=== PATIENT | female | born 1980 ===

== ENCOUNTER → 2020-04-13 13:22 | Outpatient (BNVA) | payer OTHER, SELFPAY | PROVIDERS: Visit Provider Physician Assistant ==

== ENCOUNTER 2020-04-27 08:26 | Day surgery (SDC) | payer OTHER, SELFPAY ==
--- NOTE | 2020-04-26 09:35 | HO.ANESPROP2 ---
Documented by User: Lurdes Swann 04/26/20 09:37 HPI - Anesthesia Eval Consult details Narrative: 40yo F for Upper Endoscopy [facility] Active Problems Active Problems: All Active Problems (Updated 04/13/20 @ 14:04 by Tamanna Romero PA-C) Anxiety (Acute) Migraine (Acute) Chronic GERD (Acute) Past Medical History Medical History Anxiety Migraine Family History Family History Mother Breast CA Diabetes Hypertension Father Hypertension Social History Social History Household Members: Children Alcohol intake: never Smoking Status: Never smoker Use of substances other than those prescribed or required for medical reasons: No Advance Directives: No Advance Directives Information Provided: Yes 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 Allergy/AdvReac Type Severity Reaction Status Date / Time No Known Allergies Allergy Mild NOT Verified 04/27/20 09:17 APPLICABLE Home Medications Medication Instructions Recorded Confirmed Last Taken Type esomeprazole magnesium 20 mg 40 mg PO DAILY PRN cap 04/13/20 04/13/20 Unknown History capsule,delayed release gabapentin 100 mg capsule 100 mg PO BEDTIME 04/13/20 04/13/20 Unknown History rizatriptan 10 mg tablet 10 mg PO Q2-4H PRN 04/13/20 04/13/20 Unknown History simethicone 125 mg capsule 125 mg PO BID-QID PRN 04/13/20 04/13/20 Unknown History lisinopril 1 tab PO DAILY 04/27/20 04/27/20 Unknown History Exam Exam Date and Time: April 26, 202035 Assessment and Plan Assessment Anesthesia Assessment: Chart Reviewed Documented by User: Jyoti Farmer 04/27/20 09:57 PMFSH Past Medical History Medical History Anxiety Migraine Family History Family History Mother Breast CA Diabetes Hypertension Father Hypertension Social History Social History Household Members: Children Alcohol intake: never Smoking Status: Never smoker Use of substances other than those prescribed or required for medical reasons: No Advance Directives: No Advance Directives Information Provided: Yes 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 Allergy/AdvReac Type Severity Reaction Status Date / Time No Known Allergies Allergy Mild NOT Verified 04/27/20 09:17 APPLICABLE Home Medications Medication Instructions Recorded Confirmed Last Taken Type esomeprazole magnesium 20 mg 40 mg PO DAILY PRN cap 04/13/20 04/13/20 Unknown History capsule,delayed release gabapentin 100 mg capsule 100 mg PO BEDTIME 04/13/20 04/13/20 Unknown History rizatriptan 10 mg tablet 10 mg PO Q2-4H PRN 04/13/20 04/13/20 Unknown History simethicone 125 mg capsule 125 mg PO BID-QID PRN 04/13/20 04/13/20 Unknown History lisinopril 1 tab PO DAILY 04/27/20 04/27/20 Unknown History Exam Airway Mallampati Class: I TM Dist: >3cm Neck ROM: Full Loose/Missing/Broken Teeth: No Heart: RRR Lungs: CTA Assessment and Plan Assessment Anesthesia Assessment: Anesthesia Plan Discussed and Chart Reviewed Final Anesthetic Review NPO: Yes ASA Class: II Final Preanesthetic Review: Meds/Allgs Chart Reviewed, Consent Obtained/Reviewed and Anes Risks/Benef Reviewed Patient Risk: Low Procedure Risk: Intermediate Anesthetic Plan Anesthetic Plan: MAC: Disposition: Standard PACU
[2020-04-27 09:31] VITALS: BMI 39.4
[2020-04-27 09:37] LABS: UPreg QC Valid YES; Urine Pregnancy NEGATIVE (NEGATIVE)
[2020-04-27 09:42] VITALS: BP 137/57; PULSE 76; RESP 16; TEMP 36.7; O2SAT 100
[2020-04-27] MEDS: Lactated Ringers 1,000 ML 100 ML IVCONT (09:49)
--- NOTE | 2020-04-27 09:59 | MHC.SHP ---
Pre-Procedural Eval Section B Chief Complaint: reflux Allergies: Allergies Allergy/AdvReac Type Severity Reaction Status Date / Time No Known Allergies Allergy Mild NOT Verified 04/27/20 09:17 APPLICABLE Plan I have reviewed the history and physical and performed a pertinent physical examination on my patient. No changes have occurred unless specified. Proceed with EGD
--- NOTE | 2020-04-27 10:22 | PM.OP ---
Brief Operative Note Date of Service: 04/27/20 Pre-op diagnosis: dysphagia--high Post-op diagnosis: other (Hiatal hernia, Schatzki's ring, Superficial gastritis.) Procedure: EGD with bx. Implants: nons Surgeon: Giovana Yung MD Anesthesia: MAC (Monitored-AntiMD) Estimated blood loss (mL): 5 Pathology: other (Duodenal, gastric, GE junc--ring) Condition: stable Disposition: PACU
[2020-04-27 10:33] VITALS: BP 126/71; PULSE 82; RESP 18; TEMP 36.2; O2SAT 100
[2020-04-27 10:48] VITALS: BP 117/62; PULSE 71; RESP 18; O2SAT 99
[2020-04-27 10:58] VITALS: BP 123/67; PULSE 71; RESP 18; TEMP 36.2; O2SAT 99
--- NOTE | 2020-04-27 11:31 | HO.POSTANES ---
Post Anesthesia Evaluation Post Anesthesia Evaluation Vital Signs: Vital Signs Temp Pulse Resp BP Pulse Ox 04/27/20 10:58 97.2 F 71 18 123/67 99 04/27/20 10:48 71 18 117/62 99 04/27/20 10:33 97.1 F 82 18 126/71 100 04/27/20 09:42 98.1 F 76 16 137/57 L 100 Anesthesia: Monitored Mental Status: Awake Pain Control: Satisfactory Nausea/Vomiting: None Hydration: Adequate Anesthesia-Related Issues: No Anes. Related Issues
--- NOTE | 2020-04-30 15:38 | P.OP_ITS ---
Operative Note Operative Note Date of Service: 04/27/20 Narrative: [address] [address] Patient: Stu Vargas#: [id number]: 1980Acct:[id number]/Sex: 40 / FADM Date: 04/27/20Loc:[facility] Attending Dr: Giovana Yung MD cc: ~ OPERATIVE Note: Date of Service: 04/27/20 Pre-op diagnosis: dysphagia--high Post-op diagnosis: other (Hiatal hernia, Schatzki's ring, Superficial gastritis.) Procedure: EGD with bx. Implants: none Surgeon: Giovana Yung MD Anesthesia: MAC (Monitored-MD Darian) Estimated blood loss (mL): 5 Pathology: other (Duodenal, gastric, GE junc--SCHATZKI'S Ring) Condition: stable Disposition: PACU FINDINGS: Video endoscope was introduced without difficulty. It passed easily into the esophagus. There was mild erythema in the distal esophagus. At GE junction was a non restrictive Schatzki's ring. Distal to this was a small Hiatal Hernia. The stomach itself was somewhat elongated. Bile was present. Mucosa in the antrum was erythematous. Duodenal bulb and Duodenum had endoscopically normal appearing villi. Biopsies were taken of Duodenum, gastric mucosal areas as well as the esophageal ring. PLAN: Patient will be seen back in the office in 1-4 weeks to review findings and discuss management. Dictated By:Giovana Yung MDSigned By:<Electronically signed by Giovana Yung MD>04/30/20 1537 DD/ 1022TD/TT: 04/27/20 1022Transcriptionist:
== END 2020-04-27 11:50 | disposition home or self-care (01) ==
PROVIDERS: Nurse Practitioner; PCP Student in an Organized Health Care Education/Training Program; Visit Provider Internal Medicine Gastroenterology
PROC: 0DJ08ZZ Inspection of Upper Intestinal Tract, Via Natural or Artificial Opening Endoscopic (ICD-10-PCS; CPT 43235; principal; 2020-04-27 09:50)
DX: K21.9 Gastro-esophageal reflux disease without esophagitis (principal); K22.2 Esophageal obstruction; K29.30 Chronic superficial gastritis without bleeding; K44.9 Diaphragmatic hernia without obstruction or gangrene; Z79.899 Other long term (current) drug therapy
CPT/HCPCS: 43239; 81025; 88305; 88342

== ENCOUNTER → 2020-05-11 11:25 | Outpatient (BNVA) | payer OTHER, SELFPAY | PROVIDERS: PCP Student in an Organized Health Care Education/Training Program; Visit Provider Physician Assistant ==

== ENCOUNTER → 2020-07-27 08:17 | Outpatient (BNVA) | payer OTHER, SELFPAY | PROVIDERS: Visit Provider Physician Assistant ==

== ENCOUNTER → 2020-08-31 09:15 | Outpatient (BNVA) | payer OTHER, SELFPAY | PROVIDERS: PCP Student in an Organized Health Care Education/Training Program; Visit Provider Physician Assistant ==

== ENCOUNTER → 2020-09-14 13:26 | Outpatient (BNVA) | payer OTHER, SELFPAY | PROVIDERS: PCP Student in an Organized Health Care Education/Training Program; Visit Provider Dietitian, Registered | DX: E66.9 Obesity, unspecified (principal); Z68.38 Body mass index [BMI] 38.0-38.9, adult | CPT/HCPCS: 97802 ==

== ENCOUNTER → 2020-09-21 11:14 | Outpatient (BNVA) | payer OTHER, SELFPAY | PROVIDERS: PCP Student in an Organized Health Care Education/Training Program; Visit Provider Physician Assistant ==

== ENCOUNTER → 2020-11-17 12:15 | Outpatient (BNVA) | payer OTHER, SELFPAY | PROVIDERS: PCP Student in an Organized Health Care Education/Training Program; Visit Provider Dietitian, Registered | DX: E66.9 Obesity, unspecified (principal); Z68.37 Body mass index [BMI] 37.0-37.9, adult | CPT/HCPCS: 97803 ==

== ENCOUNTER 2020-12-28 07:08 | Day surgery (SDC) | payer OTHER, SELFPAY ==
[2020-08-30 18:57] VITALS: BMI 40.8
--- NOTE | 2020-12-27 12:11 | HO.ANESPROP2 ---
Documented by User: Lurdes Swann NP 12/27/20 12:15 HPI - Anesthesia Eval Consult details Narrative: 40yo F for Colonoscopy s/p EGD 04/2020 with MAC PMF Active Problems Active Problems: All Active Problems (Updated 11/17/20 @ 12:43 by Geno Kwong, RD, LDN) Obesity (Acute) Chronic GERD (Acute) Globus hystericus (Acute) Schatzki's ring (Acute) Weight gain (Acute) Change in bowel habit (Acute) Cancer phobia (Acute) Hemorrhoids (Acute) Anxiety (Acute) Migraine (Acute) Past Medical History Medical History Anxiety Asthma Depression Hemorrhoids Hypertension Migraine Family History Family History Mother Breast CA Diabetes Hypertension Depression Anxiety Father Hypertension Surgical History Surgical History H/O colonoscopy History of esophagogastroduodenoscopy (EGD) Hx of cholecystectomy Social History Social History Household Members: Children Alcohol intake: current Alcohol intake frequency: does not drink Patient Tobacco Use Status: Never used Tobacco Use of substances other than those prescribed or required for medical reasons: No Are you DNR?: No Advance Directives: No Advance Directives Information Provided: Yes Advance Directives on File: No Recently lost weight without trying: No Nutrition Risks: No Nutritional Risk Patient : No 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 Allergy/AdvReac Type Severity Reaction Status Date / Time No Known Allergies Allergy Mild NOT Verified 09/21/20 11:15 APPLICABLE Home Medications Medication Instructions Recorded Confirmed Last Taken Type esomeprazole magnesium 20 mg 40 mg PO DAILY PRN cap 04/13/20 08/31/20 Unknown History capsule,delayed release (Nexium) rizatriptan 10 mg tablet (Maxalt) 10 mg PO Q2-4H PRN 04/13/20 08/31/20 Unknown History simethicone 125 mg capsule (Gas-X 125 mg PO BID-QID PRN 04/13/20 08/31/20 Unknown History Extra Strength) alprazolam 0.5 mg tablet (Xanax) 0.5 mg PO DAILY 07/27/20 08/31/20 Unknown History Exam Exam Date and Time: December 27, 2020 1211 Height,Weight and Vital Signs: Height 5 ft 6 in Weight 114.759 kg Assessment and Plan Assessment Anesthesia Assessment: Chart Reviewed Documented by User: Flores Nguyen MD 12/28/20 07:26 PMFSH Past Medical History Medical History Anxiety Asthma Depression Hemorrhoids Hypertension Migraine Functional capacity: independent ambulation Patient : No Family History Family History Mother Breast CA Diabetes Hypertension Depression Anxiety Father Hypertension Surgical History Surgical History H/O colonoscopy History of esophagogastroduodenoscopy (EGD) Hx of cholecystectomy History of Problems with Anesthesia: No Social History Social History Household Members: Children Alcohol intake: current Alcohol intake frequency: does not drink Patient Tobacco Use Status: Never used Tobacco Use of substances other than those prescribed or required for medical reasons: No Are you DNR?: No Advance Directives: No Advance Directives Information Provided: Yes Advance Directives on File: No Recently lost weight without trying: No Nutrition Risks: No Nutritional Risk Patient : No 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 Allergy/AdvReac Type Severity Reaction Status Date / Time No Known Allergies Allergy Mild NOT Verified 09/21/20 11:15 APPLICABLE Home Medications Medication Instructions Recorded Confirmed Last Taken Type esomeprazole magnesium 20 mg 40 mg PO DAILY PRN cap 04/13/20 08/31/20 Unknown History capsule,delayed release (Nexium) rizatriptan 10 mg tablet (Maxalt) 10 mg PO Q2-4H PRN 04/13/20 08/31/20 Unknown History simethicone 125 mg capsule (Gas-X 125 mg PO BID-QID PRN 04/13/20 08/31/20 Unknown History Extra Strength) alprazolam 0.5 mg tablet (Xanax) 0.5 mg PO DAILY 07/27/20 08/31/20 Unknown History Exam Airway Mallampati Class: II TM Dist: >3cm Neck ROM: Full Heart: RRar Lungs: CTA Assessment and Plan Final Anesthetic Review History of Problems with Anesthesia: No
[2020-12-28 07:30] LABS: UPreg QC Valid YES
[2020-12-28 07:31] LABS: Urine Pregnancy NEGATIVE (NEGATIVE)
[2020-12-28 07:33] VITALS: BP 137/76; PULSE 72; RESP 16; TEMP 36.6; O2SAT 98
[2020-12-28] MEDS: Lactated Ringers 1,000 ML 100 ML IVCONT (07:40)
--- NOTE | 2020-12-28 07:50 | MHC.SHP ---
Pre-Procedural Eval Section A Date of Service: 12/28/20 Section B Chief Complaint: change in bowel habit Relevant Family History (Specify if Yes): No Relevant Social History: None Present Medications: see Short Stay Collaborative assessment Medical History: Significant History (Anxiety Asthma Depression Hemorrhoids Hypertension Migraine) History of Previous Operations: Relevant previous surgery/procedure and date(s) (cholecystectomy) Allergies: Allergies Allergy/AdvReac Type Severity Reaction Status Date / Time No Known Allergies Allergy Mild NOT Verified 09/21/20 11:15 APPLICABLE Review of Systems Sugical H&P ROS: Negative: Constitution, Cardiovascular, Respiratory, Neurological, Psychiatric, Hem-Onc, Allergic/Immunologic, Gastrointestinal, Genitourinary, Musculoskeletal, Integumentary, Endocrine and Eyes/Ears/Nose/Throat Exam Surgical H&P Exam: Normal: HEENT, Normal: Heart, Normal: Lungs, Normal: Extremities, Normal: Abdomen, Normal: Skin and Normal: Neurological Plan Diagnosis/Plan: Unchanged I have reviewed the history and physical and performed a pertinent physical examination on my patient. No changes have occurred unless specified.
--- NOTE | 2020-12-28 09:03 | P.BOP_ITS ---
Brief Operative Note Date of Service: 12/28/20 Pre-op diagnosis: altered bowel habit Post-op diagnosis: same Procedure: see op note Surgeon: Maribell Ravi MD Anesthesia: MAC Was an Acquisition Manager used for this Procedure?: No Estimated blood loss (mL): 0 Condition: stable Disposition: PACU
--- NOTE | 2020-12-28 09:04 | P.OP_ITS ---
Operative Note Operative Note Date of Service: 12/28/20 Narrative: Operative Information Procedure Description: Colonoscopy COLONOSCOPY Instrument: Olympus variable stiffness pediatric scope 190L Colonoscopy Monitoring: Vital signs and clinical assessment, continuous EKG monitoring, Pulse oximetry, Carbon Dioxide monitoring and blood pressure monitoring were done throughout the procedure. Colon withdrawal time was 11 minutes. Procedure: The patient was placed in the left lateral decubitis position and pre-procedure medications were administered. After a digital rectal examination of the ano-rectum, the video colonoscope was inserted into the rectum and advanced through the colon to the cecum/TI. The colonoscope was slowly withdrawn in a retrograde panoramic fashion and the colon mucosa was carefully examined including a retroflexed view of the rectum. Findings and interventions are described below. Procedure Difficulty: easy Findings: Terminal Ileum-normal, bx taken Random bx taken from colon Cecum:normal Ascending Colon: normal Transverse Colon -normal Descending Colon:normal Sigmoid Colon: normal Rectum: Retroflexion with moderate sized internal hemorrhoids, grade I Anorectum - normal Colon preparation: [place] Bowel Preparation Scale Right colon; 3 Transverse colon: 2 Left colon; 3 (0 = Unprepared colon segment with mucosa not seen due to solid stool that cannot be cleared. 1 = Portion of mucosa of the colon segment seen, but other areas of the colon segment not well seen due to staining, residual stool and/or opaque liquid. 2 = Minor amount of residual staining, small fragments of stool and/or opaque liquid, but mucosa of colon segment seen well. 3 = Entire mucosa of colon segment seen well with no residual staining, small fragments of stool or opaque liquid) Impression and Post Procedure Diagnosis: internal hemrorhoids Plan: High fiber diet leaflet Avoid straining at stool, epsom salts and sitz bath, anusol supps or cream Repeat Colonoscopy in 10 years or earlier if clinically indicated Above findings were reviewed with the patient and relevant handouts were provided if indicated.
[2020-12-28 09:11] VITALS: BP 130/72; PULSE 61; RESP 16; TEMP 36.7; O2SAT 100
[2020-12-28 09:26] VITALS: BP 126/85; PULSE 61; RESP 18; TEMP 36.8; O2SAT 100
--- NOTE | 2020-12-28 10:46 | HO.POSTANES ---
Post Anesthesia Evaluation Post Anesthesia Evaluation Vital Signs: Vital Signs Temp Pulse Resp BP Pulse Ox 12/28/20 09:26 98.2 F 61 18 126/85 100 12/28/20 09:11 98.1 F 61 16 130/72 100 12/28/20 07:33 97.8 F 72 16 137/76 98 Anesthesia: Monitored Mental Status: Awake Pain Control: Satisfactory Nausea/Vomiting: None Hydration: Adequate Anesthesia-Related Issues: No Anes. Related Issues
== END 2020-12-28 10:28 | disposition home or self-care (01) ==
PROVIDERS: Nurse Practitioner; PCP Student in an Organized Health Care Education/Training Program; Visit Provider Internal Medicine Gastroenterology
PROC: 0DJD8ZZ Inspection of Lower Intestinal Tract, Via Natural or Artificial Opening Endoscopic (ICD-10-PCS; CPT 45378; principal; 2020-12-28 08:30)
DX: R19.4 Change in bowel habit (principal); K64.8 Other hemorrhoids; K64.0 First degree hemorrhoids; I10 Essential (primary) hypertension; F41.9 Anxiety disorder, unspecified; F40.298 Other specified phobia; Z79.899 Other long term (current) drug therapy; Z90.49 Acquired absence of other specified parts of digestive tract
CPT/HCPCS: 45380; 81025; 88305

== ENCOUNTER → 2021-01-19 12:46 | Outpatient (BNVA) | payer OTHER, SELFPAY | PROVIDERS: PCP Student in an Organized Health Care Education/Training Program; Visit Provider Dietitian, Registered | DX: E66.9 Obesity, unspecified (principal) | CPT/HCPCS: 97803 ==

== ENCOUNTER → 2021-03-20 14:24 | Outpatient (BNVA) | payer OTHER, SELFPAY | PROVIDERS: PCP Student in an Organized Health Care Education/Training Program; Visit Provider Dietitian, Registered | DX: E66.9 Obesity, unspecified (principal) | CPT/HCPCS: 97803 ==

== ENCOUNTER → 2021-05-21 07:29 | Outpatient (BNVA) | payer OTHER, SELFPAY | PROVIDERS: PCP Student in an Organized Health Care Education/Training Program; Visit Provider Physician Assistant ==

== ENCOUNTER 2021-06-06 04:06 | Emergency (ER) | payer OTHER, SELFPAY ==
--- NOTE | ~2021-06-06 | CT_ITS ---
EXAMINATION: CT ABDOMEN AND PELVIS WITH CONTRAST CLINICAL INFORMATION: Left lower quadrant/left inguinal pain. COMPARISON: None TECHNIQUE: Multidetector volumetric images were obtained from the superior aspect of the liver through the pubic symphysis following administration 85 mL of Omnipaque 350 intravenous contrast. Sagittal and coronal reformatted images were obtained on the technologist's workstation. Oral contrast: No This CT examination was performed using dose optimization techniques as appropriate, variously including the following: *Automated exposure control *Adjustment of mA and/or kV according to patient size (this includes techniques or standardized protocols for targeted exams where dose is matched to indication/reason for exam; i.e. extremities or head) *Use of iterative reconstruction technique DLP: 01/04/2020 mGy-cm FINDINGS: LUNG BASES: The visualized lung bases are unremarkable. LIVER, GALLBLADDER, AND BILIARY TREE: The liver is normal in size, shape, and attenuation. No focal hepatic lesion or biliary ductal dilatation is present. The gallbladder has been surgically removed. PANCREAS: Unremarkable. SPLEEN: Unremarkable. ADRENAL GLANDS: Unremarkable. KIDNEYS AND URETERS: The kidneys are normal in size, shape, and attenuation. No hydronephrosis, hydroureter, or calculi seen. No perinephric stranding. BLADDER: Unremarkable. GASTROINTESTINAL TRACT: There is scattered stool seen throughout the colon without any significant distention. The small bowel loops are normal caliber. Appendix is there is normal caliber. No inflammatory process of free fluid seen. The stomach is nondistended. ABDOMINAL WALL: There is a small lumbar canal hernia containing fat. LYMPH NODES: Normal. VASCULAR: Unremarkable. PELVIC VISCERA: There is minimal fluid in the left adnexa. The uterus is anteverted and appears unremarkable. OSSEOUS STRUCTURES: Unremarkable. CT/CT abdomen pelvis w con IMPRESSION: No acute intra-abdominal process seen. Minimal constipation. No radiopaque urolith or hydroureteronephrosis. Fleischner guidelines were followed.
[2021-06-06 04:38] VITALS: BP 137/73; PULSE 81; RESP 21; TEMP 36.8; O2SAT 96; BMI 39.1
[2021-06-06 04:54] LABS: Hematocrit 36.8 % (37.0-47.0); Hemoglobin 11.9 g/dl (12.0-16.0); Mean Corpuscular HGB Conc 32.3 g/dl (31.0-35.0); Mean Corpuscular Volume 89.8 fL (80.0-98.0); Mean Platelet Volume 10.9 fL (9.4-12.3); Platelet Count 261 X10*3/uL (160-400); Red Cell Distribution Width 13.8 % (11.0-16.0); White Blood Count 8.4 X10*3/uL (4.8-10.8)
[2021-06-06 05:09] LABS: Alanine Aminotransferase 15 U/L (0-31); Albumin Level 3.9 g/dL (3.5-5.0); Alkaline Phosphatase 57 U/L (39-117); Anion Gap 11 (12-20); Aspartate Amino Transferase 13 U/L (5-31); Bilirubin Total 0.3 mg/dL (0.0-1.0); Blood Urea Nitrogen 18 mg/dL (9-16); Calcium 9.6 mg/dL (8.4-10.2); Carbon Dioxide 27 mmol/L (22-29); Chloride 106 mmol/L (96-108); Creatinine Clr Calc Pharmacy 136.6; Estimated Glomerular Filt Rate > 60; Glucose Random 105 mg/dL (60-115); Potassium 4.9 mmol/L (3.3-5.1); Sodium 139 mmol/L (135-145); Total Protein 6.5 g/dL (6.5-8.0)
[2021-06-06 05:25] VITALS: BP 134/70; PULSE 72; RESP 16; O2SAT 99
[2021-06-06 05:46] LABS: Appearance Urine CLEAR; Color Urine YELLOW; Glucose Urine UA NEG (NEG); Leukocyte Esterase Urine NEG (NEG); Nitrite Urine NEG (NEG); Urine Blood NEG (NEG); Urine Ketones NEG (NEG); Urine Protein NEG (NEG-TRACE)
[2021-06-06 05:50] LABS: HCG Quantitative < 2 mIU/mL
--- NOTE | 2021-06-06 06:09 | PC.NURSE ---
Assumed care of pt Pt c/o LT groin pain radiating down LT thigh starting yesterday. Per pt, worse with palpation Denies any fevers at home Denies any pain/burning during urination. Pt notes that she is having urinary frequency. Will continue to monitor
--- NOTE | 2021-06-06 06:19 | ED.ABDPAIN ---
HPI - Abdominal Pain General Chief Complaint: Extremity Injury, Lower Stated Complaint: lower left side pain Time Seen by Provider: 06/06/21 05:30 Source: patient Mode of arrival: ambulatory History of Present Illness HPI narrative: 31-year-old female presents with left inguinal pain that began last night and radiates down into the medial thigh area but has not been associated with any fever, chills, nausea, vomiting, diarrhea and patient states that the pain is sharp and has worsened throughout the night which prompted cover the emergency. She states she has never had pain like this before, and her LMP was August of 2020. Related Data Home Medications Medication Instructions Recorded Confirmed rizatriptan 10 mg tablet (Maxalt) 10 mg PO Q2-4H PRN 04/13/20 08/31/20 simethicone 125 mg capsule (Gas-X 125 mg PO BID-QID PRN 04/13/20 05/21/21 Extra Strength) alprazolam 0.5 mg tablet (Xanax) 0.5 mg PO DAILY 07/27/20 05/21/21 rimegepant 75 mg disintegrating 75 mg PO 05/21/21 tablet (Nurtec ODT) Previous Rx's Medication Instructions Recorded methylcellulose (laxative) 500 mg 500 mg PO BID #60 tab 05/21/21 tablet (Citrucel) Allergies Allergy/AdvReac Type Severity Reaction Status Date / Time No Known Allergies Allergy Mild NOT Verified 05/21/21 07:38 APPLICABLE Review of Systems Review of Systems Pertinent positives and negatives as stated in HPI 10 point review of systems is otherwise negative. [facility] Past Medical History Source: nursing notes reviewed Medical History Anxiety Asthma Depression Hemorrhoids Hypertension Migraine Surgical History H/O colonoscopy History of esophagogastroduodenoscopy (EGD) Hx of cholecystectomy Family History Family History Mother Breast CA Diabetes Hypertension Depression Anxiety Father Hypertension Social History Social History Household Members: Children Alcohol intake: current Alcohol intake frequency: does not drink Patient Tobacco Use Status: Never used Tobacco Advance Directives: No Advance Directives Information Provided: Yes 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 GENERAL: Well developed, well nourished, in no acute distress. HEAD: Normocephalic/atraumatic EYES: PERRLA, EOMI OROPHARYNX: no oral lesions noted, posterior pharynx clear LUNGS: Normal breath sounds. No adventitious sounds or accessory muscle use. SpO2<96> CARDIOVASCULAR: Regular rate and rhythm without noted murmurs ABDOMEN: Soft, left lower quadrant pain on palpation without rebound, non-distended with bowel sounds. SKIN: Inspection of the skin reveals no rashes NEUROLOGIC: Alert and oriented x 4. Strength and sensation to light touch were grossly intact x 4. Course Course Course Narrative: 41-year-old female with history and clinical presentation suggestive of possible renal colic, inguinal hernia, and less likely diverticulitis. Review of all investigations without acute findings and patient was provided with all results at the bedside. Suspect may be musculoskeletal pain and recommendations for combination analgesics as well as heating pad for pain control. MDM - Abdominal Pain Lab Data Result diagrams: 06/06/21 04:48 06/06/21 04:48 Labs: Lab Results 06/06/21 06/06/21 06/06/21 Range/Units 04:48 04:48 05:39 WBC 8.4 (4.8-10.8) X10*3/uL RBC 4.10 L (4.20-5.50) X10*6/uL Hgb 11.9 L (12.0-16.0) g/dl Hct 36.8 L (37.0-47.0) % MCV 89.8 (80.0-98.0) fL MCH 29.0 (27.0-33.0) pg MCHC 32.3 (31.0-35.0) g/dl RDW 13.8 (11.0-16.0) % Plt Count 261 (160-400) X10*3/uL MPV 10.9 (9.4-12.3) fL Absolute Nucleated RBC 0.000 (0.0-0.012) X10*3/uL Nucleated RBC % (auto) 0.0 (0.0-0.2) /100WBC Sodium 139 (135-145) mmol/L Potassium 4.9 (3.3-5.1) mmol/L Chloride 106 (96-108) mmol/L Carbon Dioxide 27 (22-29) mmol/L Anion Gap 11 L (12-20) BUN 18 H (9-16) mg/dL Creatinine 0.69 (0.5-1.4) mg/dL Estim Creat Clear Calc 136.6 Estimated GFR > 60 Random Glucose 105 (60-115) mg/dL Calcium 9.6 (8.4-10.2) mg/dL Total Bilirubin 0.3 (0.0-1.0) mg/dL AST 13 (5-31) U/L ALT 15 (0-31) U/L Alkaline Phosphatase 57 (39-117) U/L Total Protein 6.5 (6.5-8.0) g/dL Albumin 3.9 (3.5-5.0) g/dL Beta HCG, Quant < 2 mIU/mL Urine Color YELLOW Urine Appearance CLEAR Urine pH 7.0 (5.0-8.0) Ur Specific [place] 1.020 (1.005-1.025) Urine Protein NEG (NEG-TRACE) MG/DL Urine Glucose (UA) NEG (NEG) MG/DL Urine Ketones NEG (NEG) MG/DL Urine Blood NEG (NEG) Urine Nitrite NEG (NEG) Ur Leukocyte Esterase NEG (NEG) Discharge Plan Discharge Clinical Impression: Abdominal wall pain Patient Disposition: Home, Self-Care Instructions: Abdominal Pain (ED), Musculoskeletal Pain (ED) Additional Instructions: 1. Recommend that you use [id number] Tylenol/ibuprofen as needed for pain control. Also, consider a heating pad for additional symptom relief. 2. Resume all home medications as prescribed. 3. Follow-up with your primary care provider in the next 2-3 days for re-evaluation. Return to the ER for worsening symptoms. Prescriptions: No Action simethicone [Gas-X Extra Strength] 125 mg capsule 125 mg PO BID-QID PRN (Reason: Gastric Reflux) 0RF rizatriptan [Maxalt] 10 mg tablet 10 mg PO Q2-4H PRN (Reason: Headache) 0RF Rx Instructions: do not exceed 3 doses per 24 hrs alprazolam [Xanax] 0.5 mg tablet 0.5 mg PO DAILY 0RF Nurtec ODT 75 mg tablet,disintegrating 75 mg PO 0RF Citrucel 500 mg tablet 500 mg PO BID Qty: 60 5RF
[2021-06-06] MEDS: iohexoL 350 MG/ML 100 ML INFUS..BTL IV (08:12)
== END 2021-06-06 07:31 | disposition home or self-care (01) ==
PROVIDERS: Emergency Provider Student in an Organized Health Care Education/Training Program
DX: R10.10 Upper abdominal pain, unspecified (principal); Z79.899 Other long term (current) drug therapy
CPT/HCPCS: 36415; 74177; 80053; 81003; 84702; 85027; 99284; Q9967

== ENCOUNTER → 2021-09-10 14:35 | Outpatient (BNVA) | payer OTHER, SELFPAY | PROVIDERS: Visit Provider Dietitian, Registered | DX: E66.9 Obesity, unspecified (principal) | CPT/HCPCS: 97803 ==

== ENCOUNTER → 2021-10-22 09:08 | Outpatient (BNVA) | payer OTHER, SELFPAY | PROVIDERS: PCP Student in an Organized Health Care Education/Training Program; Visit Provider Dietitian, Registered | DX: E66.9 Obesity, unspecified (principal) | CPT/HCPCS: 97803 ==

== ENCOUNTER → 2022-03-19 10:28 | Outpatient (BNVA) | payer OTHER, SELFPAY | PROVIDERS: PCP Student in an Organized Health Care Education/Training Program; Visit Provider Nurse Practitioner Family | DX: Z13.89 Encounter for screening for other disorder (principal) ==

== ENCOUNTER → 2022-07-02 10:47 | Outpatient (BNVA) | payer OTHER, SELFPAY | PROVIDERS: PCP Student in an Organized Health Care Education/Training Program; Visit Provider Nurse Practitioner Family | DX: Z13.89 Encounter for screening for other disorder (principal) ==

== ENCOUNTER 2022-08-05 15:35 | Outpatient (REF) | payer OTHER, SELFPAY ==
[2022-08-05 18:07] LABS: D Dimer High Sensitivity 157 NG/ML
[2022-08-05 18:16] LABS: Appearance Urine Clear; Color Urine Yellow; Glucose Urine UA Negative (Negative); Leukocyte Esterase Urine Trace (Negative); Nitrite Urine Negative (Negative); PH 6.5 (5.0-9.0); Specific Gravity - Urine 1.015 (1.005-1.025); UMIC TRIGGER UA YES; Urine Blood Negative (Negative); Urine Ketones Negative (Negative); Urine Protein Negative (Neg-Trace)
[2022-08-05 18:21] LABS: Bacteria Urine None Seen (None Seen); Hyaline Casts Urine 0-2 /LPF (0-2); RBC Urine 0-2 /HPF (0-2); Squamous Epithelial Cell Urine 0-2 /HPF (0-2); WBC Urine 0-5 /HPF (0-5)
[2022-08-05 18:22] LABS: Alanine Aminotransferase 13 U/L (0-31); Alkaline Phosphatase 55 U/L (39-117); Anion Gap 13 (12-20); Aspartate Amino Transferase 14 U/L (5-31); Bilirubin Total 0.3 mg/dL (0.0-1.0); Blood Urea Nitrogen 16 mg/dL (9-16); Calcium 9.5 mg/dL (8.4-10.2); Carbon Dioxide 27 mmol/L (22-29); Chloride 104 mmol/L (96-108); Estimated Glomerular Filt Rate > 60; Glucose Random 87 mg/dL (60-115); Potassium 4.8 mmol/L (3.3-5.1); Sodium 139 mmol/L (135-145); Total Protein 6.5 g/dL (6.5-8.0)
== END 2022-08-05 15:36 | disposition home or self-care (01) ==
LOC: HO.LAB 15:35
PROVIDERS: Visit Provider Internal Medicine
DX: R60.0 Localized edema (principal)
CPT/HCPCS: 36415; 80053; 81001; 85379

== ENCOUNTER → 2022-08-29 11:20 | Outpatient (BNVA) | payer OTHER, SELFPAY | PROVIDERS: PCP Student in an Organized Health Care Education/Training Program; Visit Provider Nurse Practitioner Family ==

== ENCOUNTER 2022-10-09 06:21 | Outpatient (REF) | payer OTHER, SELFPAY ==
[2022-10-09 07:51] LABS: Anion Gap 12 (12-20); Blood Urea Nitrogen 14 mg/dL (9-16); Carbon Dioxide 24 mmol/L (22-29); Chloride 108 mmol/L (96-108); Cholesterol 179 mg/dL; Estimated Glomerular Filt Rate > 60; Glucose Random 110 mg/dL (60-115); HDL Cholesterol 44 mg/dL; LDL Cholesterol Calculated 118 mg/dl; Potassium 4.6 mmol/L (3.3-5.1); Sodium 139 mmol/L (135-145); Triglycerides 85 mg/dL
== END 2022-10-09 06:22 | disposition home or self-care (01) ==
LOC: HO.LAB 06:21
PROVIDERS: PCP Student in an Organized Health Care Education/Training Program; Visit Provider Student in an Organized Health Care Education/Training Program
DX: F41.1 Generalized anxiety disorder (principal); F41.0 Panic disorder [episodic paroxysmal anxiety]; E66.01 Morbid (severe) obesity due to excess calories
CPT/HCPCS: 36415; 80048; 80061

== ENCOUNTER 2023-01-10 13:29 | Outpatient (AMB) | payer OTHER, SELFPAY ==
--- NOTE | 2023-01-10 13:30 | A.OFFVIS_ITS ---
Intake Vital Signs 01/10/23 13:31 Height 5 ft 7 in Weight 260 lb 2 oz BMI 40.7 BP 132/72 Blood Pressure Location Lt brachial Position Sitting Respiration 16 Pulse 85 Pulse Source Pulse Oximeter Pulse Oximetry (%) 99 Oxygen Delivery Method Room Air Intake Visit Reasons: 4m follow up-Confirmed Intake Note: Pt presents to the office for 4 month follow up for migraines. Pt reports her migraines are better and the shots seem to be working , however, when she gets her cluster headaches the only thing that helps take them away is the Nurtec, and she has been having trouble getting this approved by the insurance. Allergies No Known Allergies Allergy (Mild, Verified 01/10/23 13:31) NOT APPLICABLE HPI HPI Comments History of Present Illness Details 42-yr-old female presents for f/u visit for chronic migraine. She is on Emgality, today is the due date. Pt reports that the migraine frequency and intensity has been better. However, she still has really bad headache 2 days/week with nausea, light and noise sensitivity. Nurtec was mostly helpful to treat the acute migraine and it did not cause brainfog or dizziness. Pt tried Ubrelvy, sumatriptan, and rizatriptan but they caused dizziness and unbalance, she did not tolerate and could not get out of bed. Pt reports she can't sleep well, loud snoring, frequent gasping arousals and excessive daytime sleepiness. Pt had a PSG sleep study done 2020, but no REM recorded. She gained 30 lb since 2020. 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 Review of Systems Const All systems reviewed & are unremarkable except as noted in HPI and below Physical Exam Vital Signs: Last Vital Signs Pulse 85 01/10/23 13:31 Resp 16 01/10/23 13:31 BP 132/72 01/10/23 13:31 Pulse Ox 99 01/10/23 13:31 Oxygen Delivery Method Room Air 01/10/23 13:31 BMI result Body Mass Index 40.7 Const General: cooperative and no acute distress Orientation/consciousness: patient oriented x3 HEENT Head: Yes normocephalic Resp Effort & Inspection: normal respiratory effort and able to speak in complete sentences Neuro General: patient oriented x3, gait normal and CN's II-XI intact bilaterally Cognition (Neuro): normal cognition Motor exam (neuro): 5/5 motor strength present throughout Psych Appearance: grossly normal Mental Status: mental status grossly normal Speech and movement: Normal speech and movement present Affect: normal affect Attitude: cooperative Thought process: Normal thought process present Thought content: Normal thought content present Insight: Good insight present (Psych) Judgement: Good judgement present (Psych) Assessment & Plan Assessment & Plan (1) Daytime sleepiness: Code(s): R40.0 - Somnolence (2) Snoring: Code(s): R06.83 - Snoring (3) Sleep difficulties: Code(s): G47.9 - Sleep disorder, unspecified (4) Migraine: Code(s): G43.909 - Migraine, unspecified, not intractable, without status migrainosus Plan Advised patient to undergo home sleep study to assess sleep apnea. Will f/u after sleep study for appropriate treatment options. Continue to take monthly Emgality as patient experiences good clinical effects. Will try Nurtec to treat acute the migraine. Pt did not tolerate sumatriptan, rizatriptan and ubrelvy. Orders: Orders RT home sleep study Today E66.9 - Obesity, unspecified, G47.9 - Sleep disorder, unspecified, R06.83 - Snoring, R40.0 - Somnolence Medications: Refilled rimegepant (Nurtec ODT) 75 mg orally daily PRN; 32 days 16 tabs 6RF migraine G43.909 - Migraine, unspecified, not intractable, without status migrainosus Coding Level of Care Code Est Pt Level 4 (48238) Diagnoses Daytime sleepiness R40.0 Snoring R06.83 Sleep difficulties G47.9 Migraine G43.909
[2023-01-10 13:31] VITALS: BP 132/72; PULSE 85; RESP 16; O2SAT 99; BMI 40.7
== END 2023-01-10 13:53 | disposition home or self-care (01) ==
PROVIDERS: Visit Provider Nurse Practitioner Family
DX: R40.0 Somnolence (principal); R06.83 Snoring; G47.9 Sleep disorder, unspecified; G43.909 Migraine, unspecified, not intractable, without status migrainosus
CPT/HCPCS: 99214

== ENCOUNTER → 2023-01-10 13:29 | Outpatient (BNVA) | payer OTHER, SELFPAY | PROVIDERS: Visit Provider Nurse Practitioner Family ==

== ENCOUNTER → 2023-03-11 12:54 | Outpatient (REF) | payer OTHER, SELFPAY | LOC: HO.SL 12:54 | PROVIDERS: Visit Provider Nurse Practitioner Family | DX: G47.33 Obstructive sleep apnea (adult) (pediatric) (principal); E66.9 Obesity, unspecified; R06.83 Snoring; R40.0 Somnolence | CPT/HCPCS: 95806 ==

== ENCOUNTER → 2023-03-11 13:15 | Outpatient (BNV) | payer OTHER, SELFPAY | PROVIDERS: Visit Provider Internal Medicine | DX: G47.33 Obstructive sleep apnea (adult) (pediatric) (principal) | CPT/HCPCS: 95806 ==

== ENCOUNTER 2023-05-07 10:18 | Outpatient (REF) | payer OTHER, SELFPAY ==
[2023-05-07 15:22] LABS: Alanine Aminotransferase 14 U/L (0-31); Albumin Level 3.9 g/dL (3.5-5.0); Alkaline Phosphatase 56 U/L (39-117); Anion Gap 13 (12-20); Aspartate Amino Transferase 13 U/L (5-31); Bilirubin Direct 0.2 mg/dL (0.0-0.5); Bilirubin Total 0.3 mg/dL (0.0-1.0); Blood Urea Nitrogen 13 mg/dL (9-16); Calcium 8.9 mg/dL (8.4-10.2); Carbon Dioxide 25 mmol/L (22-29); Chloride 106 mmol/L (96-108); Cholesterol 198 mg/dL (<200); Estimated Glomerular Filt Rate > 60; Glucose Random 84 mg/dL (60-115); HDL Cholesterol 50 mg/dL (>40); LDL Cholesterol Calculated 131 mg/dL (<100); Potassium 4.1 mmol/L (3.3-5.1); Sodium 140 mmol/L (135-145); Total Protein 6.6 g/dL (6.5-8.0); Triglycerides 88 mg/dL (<150)
[2023-05-07 15:37] LABS: Thyroid Stimulating Hormone 0.68 uIU/mL (0.32-4.0); Vitamin D 25-OH Total 12.3 ng/mL (>30)
== END 2023-05-07 10:19 | disposition home or self-care (01) ==
LOC: HO.CHCLDS 10:18
PROVIDERS: Visit Provider Student in an Organized Health Care Education/Training Program
DX: E66.01 Morbid (severe) obesity due to excess calories (principal); E55.9 Vitamin D deficiency, unspecified
CPT/HCPCS: 36415; 80048; 80061; 80076; 82306; 84443

== ENCOUNTER 2023-05-09 15:54 | Outpatient (AMB) | payer OTHER, SELFPAY ==
[2023-05-09 16:00] VITALS: BP 142/90; PULSE 92; TEMP 37.2; O2SAT 9; BMI 42.1
--- NOTE | 2023-05-09 16:00 | AM.OFFWIN_ITS ---
Intake Vital Signs 05/09/23 16:00 Height 5 ft 7 in Weight 269 lb BMI 42.1 BP 142/90 H Blood Pressure Location Lt brachial Position Sitting Pulse 92 Pulse Source Pulse Oximeter Temp 98.9 F Temp Source Temporal Artery Scan Pulse Oximetry (%) 9 L Intake Visit Reasons: EP hard to breathe sinus/chest pressure Intake Note: Pt is here today as an est patient, difficulty breathing and chest pressure. Pt states symptoms started friday Patient Tobacco Use Status: Never used Tobacco Allergies No Known Allergies Allergy (Mild, Verified 05/09/23 16:01) NOT APPLICABLE Do you need a note to return to daycare/school/sports/work: Yes HPI HPI Comments History of Present Illness Details 43 y/o female patient who presents to [facility] with c/o URI symptoms since Fri. She was seen at walk in Fri and given Sinus Decongestant medicines, but re[orts no improvement. Denies fevers, chills, nausea or vomiting. 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 Review of Systems Const All systems reviewed & are unremarkable except as noted in HPI and below Physical Exam Vital Signs: Last Vital Signs Temp 98.9 F 05/09/23 16:00 Pulse 92 05/09/23 16:00 BP 142/90 H 05/09/23 16:00 Pulse Ox 9 L 05/09/23 16:00 BMI result Body Mass Index 42.1 Const General: comfortable and no acute distress HEENT Head: Yes normocephalic and Yes atraumatic Ears: external ears normal and TM's normal bilaterally General nose exam: Abnormal mucous membranes and turbinates present boggy and erythematous and Nasal discharge present Face and sinus: Yes sinuses nontender Mouth: moist mucous membranes Throat: Yes posterior oropharynx normal Resp Effort & Inspection: normal respiratory effort and able to speak in complete sentences Auscultation: clear to auscultation bilaterally Cardio Rate: regular rate Rhythm: regular rhythm Assessment & Plan Assessment & Plan (1) Upper respiratory infection: Code(s): J06.9 - Acute upper respiratory infection, unspecified Qualifiers: URI type: acute nasopharyngitis (common cold) Qualified Code(s): J00 - Acute nasopharyngitis [common cold] Plan: - Rest - Warm fluids - OTC cold remedies - Acetaminophen for pain relief. Orders: Orders SARS-CoV2/FLU/RSV Today J06.9 - Acute upper respiratory infection, unspecified Medications: New azithromycin 500 mg PO DAILY 3 days 3 tabs 0RF J06.9 - Acute upper respiratory infection, unspecified prednisone 50 mg PO DAILY 5 days 5 tabs 0RF J06.9 - Acute upper respiratory infection, unspecified Coding Level of Care Code Est Pt Level 3 (54035) Diagnoses Acute nasopharyngitis J00 URI type: acute nasopharyngitis (common cold) Time Spent (min) 15
== END 2023-05-09 16:34 | disposition home or self-care (01) ==
PROVIDERS: Visit Provider Nurse Practitioner Family
DX: J00 Acute nasopharyngitis [common cold] (principal)
CPT/HCPCS: 99213

== ENCOUNTER 2023-05-09 16:20 | Outpatient (REF) | payer OTHER, SELFPAY ==
[2023-05-10 12:40] LABS: Influenza A PCR NEGATIVE (Negative); Influenza B PCR NEGATIVE (Negative); Resp Syncy Virus RNA Qual PCR NEGATIVE (Negative); SARS COV2 PCR INHOUSE NEGATIVE (Negative)
== END 2023-05-09 16:21 | disposition home or self-care (01) ==
LOC: HO.LAB 16:20
PROVIDERS: Visit Provider Nurse Practitioner Family
DX: J06.9 Acute upper respiratory infection, unspecified (principal)
CPT/HCPCS: 0241U

== ENCOUNTER 2023-05-14 16:03 | Outpatient (REF) | payer OTHER, SELFPAY ==
--- NOTE | ~2023-05-14 | XR_ITS ---
EXAMINATION: XR CHEST CLINICAL INFORMATION: Shortness of breath COMPARISON: None available. TECHNIQUE: 2 views of the chest were obtained. FINDINGS: No significant abnormality is noted involving the heart, lungs, mediastinum, bony thorax or soft tissues. XR/XR chest 2V IMPRESSION: Unremarkable examination.
== END 2023-05-14 16:04 | disposition home or self-care (01) ==
LOC: HO.XRAY 16:03
PROVIDERS: Absent Provider Student in an Organized Health Care Education/Training Program; PCP Student in an Organized Health Care Education/Training Program; Visit Provider Family Medicine
DX: J06.9 Acute upper respiratory infection, unspecified (principal); J32.9 Chronic sinusitis, unspecified; J45.41 Moderate persistent asthma with (acute) exacerbation
CPT/HCPCS: 71046

== ENCOUNTER 2023-05-14 16:06 | Outpatient (REF) | payer OTHER, SELFPAY ==
[2023-05-14 18:21] LABS: Influenza A PCR NEGATIVE (Negative); Influenza B PCR NEGATIVE (Negative); Resp Syncy Virus RNA Qual PCR NEGATIVE (Negative); SARS COV2 PCR INHOUSE NEGATIVE (Negative)
== END 2023-05-14 16:07 | disposition home or self-care (01) ==
LOC: HO.CHCLNP 16:06
PROVIDERS: Visit Provider Family Medicine
DX: Z11.52 Encounter for screening for COVID-19 (principal); Z20.822 Contact with and (suspected) exposure to COVID-19; J06.9 Acute upper respiratory infection, unspecified
CPT/HCPCS: 0241U

== ENCOUNTER 2023-05-16 14:06 | Outpatient (AMB) | payer OTHER, SELFPAY ==
--- NOTE | 2023-05-16 14:08 | MHC.OFFVIS ---
Intake Vital Signs 05/16/23 14:14 Height 5 ft 7 in Weight 264 lb 6 oz BMI 41.4 BP 142/80 H Blood Pressure Location Lt brachial Position Sitting Pulse 80 Pulse Source Pulse Oximeter Pulse Oximetry (%) 97 Oxygen Delivery Method Room Air Intake Visit Reasons: 4 mo f/u-LVM Intake Note: Patient presents for 4 month f/u. not using machine due to been sick and having asthma Allergies No Known Allergies Allergy (Mild, Verified 05/16/23 14:12) NOT APPLICABLE HPI HPI Comments History of Present Illness Details 43 y/o female presents for f/u visit for chronic migraine and sleep apnea. Pt reports her migraine frequency and intensity has improved a lot with monthly Emgality injection. She has migraine maybe 1 -2 /week, Pt states that she is in pre-menopause and on hormone therapy. Hormone imbalance and stress triggers her headache. She uses Nurtec when she gets headache and it relieve her headache quick. Pt tried Ubrelvy, sumatriptan, and rizatriptan but they caused dizziness and unbalance, she did not tolerate and could not get out of bed. Pt had a repeat sleep study done. The home sleep study result was mild degree of sleep apnea. The AHI was 8/hr and oxygen marty was 82%. She had a CPAP and started. However, she has asthma exacerbation and hold CPAP for now. She is on prednisone therapy, and will resume CPAP after the treatment done. 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 Review of Systems Const All systems reviewed & are unremarkable except as noted in HPI and below Physical Exam Vital Signs: Last Vital Signs Pulse 80 05/16/23 14:14 BP 142/80 H 05/16/23 14:14 Pulse Ox 97 05/16/23 14:14 Oxygen Delivery Method Room Air 05/16/23 14:14 BMI result Body Mass Index 41.4 Const General: cooperative and no acute distress Orientation/consciousness: patient oriented x3 HEENT Head: Yes normocephalic Resp Effort & Inspection: normal respiratory effort and able to speak in complete sentences Neuro General: patient oriented x3, gait normal and CN's II-XI intact bilaterally Cognition (Neuro): normal cognition Motor exam (neuro): 5/5 motor strength present throughout Psych Appearance: grossly normal Mental Status: mental status grossly normal Speech and movement: Normal speech and movement present Affect: normal affect Attitude: cooperative Thought process: Normal thought process present Thought content: Normal thought content present Insight: Good insight present (Psych) Judgement: Good judgement present (Psych) Assessment & Plan Assessment & Plan (1) Migraine: Code(s): G43.909 - Migraine, unspecified, not intractable, without status migrainosus (2) JONO (obstructive sleep apnea): Comment: Mild degree of sleep apnea. The AHI was 8/hr and oxygen marty was 82%. Code(s): G47.33 - Obstructive sleep apnea (adult) (pediatric) Plan Continue to take monthly Emgality as patient experiences good clinical effects. Nurtec, as needed to treat acute the migraine. Pt did not tolerate sumatriptan, rizatriptan and ubrelvy. Resume CPAP after asthma treatment done. Coding Level of Care Code Est Pt Level 4 (58286) Diagnoses Migraine G43.909 JONO (obstructive sleep apnea) G47.33
[2023-05-16 14:14] VITALS: BP 142/80; PULSE 80; O2SAT 97; BMI 41.4
== END 2023-05-16 14:31 | disposition home or self-care (01) ==
PROVIDERS: PCP Student in an Organized Health Care Education/Training Program; Visit Provider Nurse Practitioner Family
DX: G43.909 Migraine, unspecified, not intractable, without status migrainosus (principal); G47.33 Obstructive sleep apnea (adult) (pediatric)
CPT/HCPCS: 99214

== ENCOUNTER → 2023-05-16 14:06 | Outpatient (BNVA) | payer OTHER, SELFPAY | PROVIDERS: PCP Student in an Organized Health Care Education/Training Program; Visit Provider Nurse Practitioner Family ==

== ENCOUNTER 2023-06-04 16:04 | Outpatient (REF) | payer OTHER, SELFPAY ==
--- NOTE | ~2023-06-04 | XR_ITS ---
EXAMINATION: XR CERVICAL SPINE CLINICAL INFORMATION: Cervical radiculopathy COMPARISON: None available. TECHNIQUE: 3 views of the cervical spine were obtained. FINDINGS: There are no prevertebral soft tissue or bony abnormalities demonstrated. No compression fractures or subluxations are identified. Alignment is maintained at the atlanto-axial articulation. The disc spaces are preserved except of mild narrowing of C6-C7 and C7-T1 intervertebral disc spaces. No endplate changes are seen. The prevertebral soft tissues are normal. The foramina are patent. XR/XR cervical spine 3V IMPRESSION: Mild degenerative changes at the level of C6-C7 and C7-T1.
== END 2023-06-04 16:05 | disposition home or self-care (01) ==
LOC: HO.XRAY 16:04
PROVIDERS: Absent Provider Student in an Organized Health Care Education/Training Program; PCP Student in an Organized Health Care Education/Training Program; Visit Provider Internal Medicine
DX: M54.12 Radiculopathy, cervical region (principal)
CPT/HCPCS: 72040

== ENCOUNTER 2023-06-11 14:16 | Outpatient (AMB) | payer OTHER, SELFPAY ==
[2023-06-11 14:18] VITALS: BP 112/62; PULSE 89; O2SAT 98; BMI 41.2
--- NOTE | 2023-06-11 14:18 | MHC.OFFVIS ---
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 Required: No Cyber Engineer: Cyber Engineer offered & declined Accompanied by: Self / Same As Patient Allergies No Known Allergies Allergy (Mild, Verified 06/11/23 14:24) NOT APPLICABLE Medication List - Last Reconciled 06/11/23 by Diane Steiner LPN albuterol sulfate 90 mcg/actuation inhalation alprazolam 0.25 mg PO DAILY PRN bupropion HCl (Wellbutrin XL) 300 mg PO QAM bupropion HCl (Wellbutrin XL) 150 mg PO QAM estradiol-norethindrone acet 1-0.5 mg (Mimvey) 1 tab PO DAILY fluticasone propionate 50 mcg/actuation 2 sprays intranasal DAILY galcanezumab-gnlm (Emgality Pen) 120 mg subcut ONCE 30 days lisinopril 5 mg PO DAILY rimegepant (Nurtec ODT) 75 mg orally daily PRN; 32 days HPI Persistent Shortness of breath HPI Details Jeanine is pleasant 43 year old female, never smoker with underlying asthma. She was referred by PCP for pulmonary evaluation for worsening asthma control. She reports symptoms of worsening dyspnea, wheezing, cough and chest tightness since the fall of 2022. She was evaluated at urgent care in April treated with azithromycin with minimal response, then treated with amoxicillin, doxy and prednisone. Respiratory panel negative and CXR unremarkable. She reports slowly resolving symptoms however continues with dyspnea at rest and exertion as well as wheezing and cough. She has been using albuterol MDI and nebulizer 4 times a day with minimal relief, along with Flovent. She also reports more noticeable bilateral lower extremity edema and orthopnea. She was recently diagnosed with mild obstructive sleep apnea and has been prescribed CPAP therapy but has had difficulty with compliance due to respiratory symptoms. She reports mother with with asthma and children with eczema. She reports seasonal allergies, no recent allergy testing. She reports having a dog and 2 cats. 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 Review of Systems Const Denies chills, Denies excessive sweating, Denies fever(s), Denies headache(s) and Denies night sweats Eyes Denies dry eyes, Denies irritation and Denies itchy eyes ENT Reports Normal hearing present, Denies headache(s), Denies nasal congestion, Denies nasal discharge, Denies post nasal drip and Denies sore throat Card Denies chest pain, Denies chest pain at rest, Denies chest pain with activity, Denies claudication and Denies paroxysmal nocturnal dyspnea Resp Denies chest congestion, Denies excessive phlegm production, Denies pain on inspiration, Denies pain with cough and Denies stridor Musc Denies myalgias Neuro Reports Normal hearing present and Denies headache(s) Endo Denies excessive sweating Jorge/Lymph Denies lymphadenopathy Aller/Immun Denies itchy eyes and Denies seasonal rhinorrhea Physical Exam Vital Signs: Last Vital Signs Pulse 89 06/11/23 14:18 BP 112/62 06/11/23 14:18 Pulse Ox 98 06/11/23 14:18 Oxygen Delivery Method Room Air 06/11/23 14:18 BMI result Body Mass Index 41.2 Const General: cooperative, healthy appearing, comfortable, no acute distress, well developed and alert Nutritional Appearance: obese Orientation/consciousness: patient oriented x3 Limitations: no limitations HEENT Head: Yes normal to inspection, Yes normocephalic and Yes atraumatic Ears: hearing grossly normal bilaterally and external ears normal Eyes General: appearance normal, both eyes and all related structures Eyelids: Yes eyelids normal Sclerae: sclerae normal EOM: EOMs intact bilaterally Neck Neck: Yes normal visual inspection and Yes no lymphadenopathy Lymphatic: no lymphadenopathy noted Chest Chest palpation & inspection: normal inspection of the chest Resp Effort & Inspection: normal respiratory effort, able to speak in complete sentences, no audible wheezes, no cough, no stridor, not tachypneic, no tripod positioning and no use of accessory muscles Auscultation: clear to auscultation bilaterally Cardio Jugular venous distension: no JVD Rate: regular rate Rhythm: regular rhythm Skin Other: warm, dry General skin exam: no rashes or lesions noted Neuro General: patient oriented x3 Cranial nerves: Yes Normal hearing present Cognition (Neuro): normal cognition Gait exam (Neuro): Normal gait present Extrem Other: 1+ pitting edema BLE Psych Appearance: grossly normal and well kempt Speech and movement: Normal speech and movement present and Clear speech present Affect: normal affect Attitude: cooperative Thought process: Normal thought process present Thought content: Normal thought content present Insight: Good insight present (Psych) Judgement: Good judgement present (Psych) Assessment & Plan Assessment & Plan (1) Asthma: Code(s): J45.909 - Unspecified asthma, uncomplicated (2) Dyspnea: Code(s): R06.00 - Dyspnea, unspecified (3) Environmental allergies: Code(s): Z91.09 - Other allergy status, other than to drugs and biological substances (4) JONO (obstructive sleep apnea): Comment: Mild degree of sleep apnea. The AHI was 8/hr and oxygen marty was 82%. Code(s): G47.33 - Obstructive sleep apnea (adult) (pediatric) (5) Obesity: Code(s): E66.9 - Obesity, unspecified Plan Ibelis's symptoms are likely related to underlying asthma with possible allergic contribution. Will send for PFT and RAST to evaluate. Will change Flovent to Breo. Will also send for echo as patient with dyspnea at rest and exertion as well as orthopnea and bilateral lower extremity edema. All questions were answered and patient is in agreement of plan. Will follow-up to review results and response to Breo. Orders: Orders Resp Allergy Profile Region I Today Z91.09 - Other allergy status, other than to drugs and biological substances Immunoglobulin E Today Z91.09 - Other allergy status, other than to drugs and biological substances CA echo transthoracic complete Today R06.00 - Dyspnea, unspecified Complete Blood Count Auto Diff Today R06.00 - Dyspnea, unspecified PFT pulmonary function test Today J45.909 - Unspecified asthma, uncomplicated Medications: New fluticasone furoate-vilanterol 100-25 mcg/dose (Breo Ellipta) 1 inh inhalation DAILY 60 ea 3RF Coding Level of Care Code New Pt Level 4 (55070) Diagnoses Asthma J45.909 Dyspnea R06.00 Environmental allergies Z91.09 JONO (obstructive sleep apnea) G47.33 Obesity E66.9
== END 2023-06-11 15:16 | disposition home or self-care (01) ==
PROVIDERS: PCP Student in an Organized Health Care Education/Training Program; Referring Provider Student in an Organized Health Care Education/Training Program; Visit Provider Nurse Practitioner Family
DX: J45.909 Unspecified asthma, uncomplicated (principal); R06.00 Dyspnea, unspecified; Z91.09 Other allergy status, other than to drugs and biological substances; G47.33 Obstructive sleep apnea (adult) (pediatric); E66.9 Obesity, unspecified
CPT/HCPCS: 99204

== ENCOUNTER → 2023-06-11 14:16 | Outpatient (BNVA) | payer OTHER, SELFPAY | PROVIDERS: PCP Student in an Organized Health Care Education/Training Program; Visit Provider Nurse Practitioner Family ==

== ENCOUNTER → 2023-06-26 14:32 | Outpatient (REF) | payer OTHER, SELFPAY ==
--- NOTE | 2023-06-26 14:35 | CA_ITS ---
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 The visually estimated ejection fraction is between 55-60%. Diastolic function is normal for age. - Normal right ventricular cavity size and systolic function. Findings Procedure Information The quality of the study was technically difficult. The study quality is limited by patients body habitus. Left Ventricle Normal left ventricular size, thickness, systolic function, and wall motion. The visually estimated ejection fraction is between 55-60%. Diastolic function is normal for age. Right Ventricle Normal right ventricular cavity size and systolic function. Atria Both atria are normal in size. Aortic Valve Normal aortic valve structure and function. There is no aortic valve stenosis. There is no aortic valve regurgitation. Mitral Valve Normal mitral valve structure and function. There is no mitral valve regurgitation. There is no mitral valve stenosis. Pulmonic Valve Normal pulmonic valve structure and function. Tricuspid Valve Normal tricuspid valve structure and function. There is no tricuspid valve regurgitation. Tricuspid regurgitation envelope is inadequate for calculation of right ventricular systolic pressure. Normal right atrial pressure. Great Vessels All visible segments of the aorta are normal in size. The visualized portions of the pulmonary artery and branches are normal. Venous The inferior vena cava is normal in size and collapses greater than 50% with inspiration. Pericardium/Pleural There is no evidence of pericardial effusion. Prior Study Comparison No prior study available for comparison. Measurements 2D Linear Measurements IVSd: 0.74 0.6-0.9/0.6-1.0 cm LVIDd: 5.57 3.9-5.3/4.2-5.9 cm LVIDs: 3.54 2.0-3.6 cm LVPWd: 0.73 0.7-1.1 cm LA Diam: 4.10 2.7-3.8/3.0-4.0 cm LV Mass: 182.84 67-162/88-224 g LVOT Diam: 2.20 3.0+(-)1.3 cm 2D Systolic Function EF 4C: 63.30 >55% EF 2C: 56.40 >55% EF BiP: 58.20 >55% Mitral Valve MV Pk E: 0.94 MV PK A: 0.65 MV Decel Time: 200.00 E/A: 1.50 E'Lateral: 8.05 E'Medial: 11.20 E/E' Med: 8.40 E/E' Lat: 11.70 PHT: 59.00 MVA PHT: 3.73 Decel Ventura: 4.72 Aortic Valve AoV Pk Drew: 1.35 AoV Pk Grad: 7.00 MAGGIE: 3.77 LVOT LVOT Pk Drew: 1.34 LVOT Mn Drew: 0.84 LVOT VTI: 0.26 LVOT Pk Grad: 7.00 LVOT Mn Grad: 3.00 LVOT Diam: 2.20 LVOT Area: 3.80 Diastolic Function MV Pk E: 0.94 MV Pk A: 0.65 E/A: 1.50 E'Medial: 11.20 E/E' Med: 8.40 E' Laterial: 8.05 E/E' Lat: 11.70 Right Ventricle TAPSE (mm): 26.30 TVS' Drew: 12.70 Tricuspid Valve RA Press: 3.00 Great Vessels Aorta Sinus of Valsalva: 2.60 2.0-3.5 cm Ao Asc: 2.90 2.1-3.4 cm Pulmonary Veins Pulm Vein S/D 1.60 Pulmonary Valve PV Pk Drew: 0.90 Peak PV Grad: 3.00 Updated in Other Vendor System with Status of Final Ozzie Devi MD electronically signed on 06/26/2023 7:08:09 PM with status of Final
== END ==
LOC: HO.CARD 14:32
PROVIDERS: PCP Student in an Organized Health Care Education/Training Program; Visit Provider Nurse Practitioner Family
DX: R06.00 Dyspnea, unspecified (principal)
CPT/HCPCS: 93306

== ENCOUNTER → 2023-06-26 14:35 | Outpatient (BNV) | payer OTHER, SELFPAY | PROVIDERS: PCP Student in an Organized Health Care Education/Training Program; Visit Provider Internal Medicine Cardiovascular Disease | DX: R06.00 Dyspnea, unspecified (principal) | CPT/HCPCS: 93306 ==

== ENCOUNTER 2023-08-04 09:46 | Outpatient (REF) | payer OTHER, SELFPAY ==
[2023-08-04 10:58] VITALS: PULSE 92; RESP 16; O2SAT 95
--- NOTE | 2023-08-04 15:32 | PFT_ITS ---
Flows: FEV1: 72 % of predicted at 2.28 L FVC: 74 % of predicted at 2.95 L FEV1/FVC: 77 % Bronchodilator response: Absent Volumes: Total lung capacity: 70 % of predicted at 4.07 L Residual volume: 75 % of predicted at 1.16 L Slow vital capacity: 69 % of predicted at 2.91 L Expiratory reserve volume: 37 % of predicted at 0.48 L Diffusion capacity: Normal Impression: Moderate restrictive ventilatory defect with no bronchodilator response. Decreased expiratory reserve volume suggests extrathoracic restriction likely secondary to abdominal obesity. MTDD
== END 2023-08-04 09:47 | disposition home or self-care (01) ==
LOC: HO.RESP 09:46
PROVIDERS: PCP Student in an Organized Health Care Education/Training Program; Visit Provider Nurse Practitioner Family
DX: J45.909 Unspecified asthma, uncomplicated (principal)
CPT/HCPCS: 94010; 94640; 94727; 94729

== ENCOUNTER → 2023-08-04 15:32 | Outpatient (BNV) | payer OTHER, SELFPAY | PROVIDERS: PCP Student in an Organized Health Care Education/Training Program; Visit Provider Internal Medicine Pulmonary Disease | DX: J45.909 Unspecified asthma, uncomplicated (principal) | CPT/HCPCS: 94060; 94727; 94729 ==

== ENCOUNTER 2023-08-07 07:05 | Outpatient (REF) | payer OTHER, SELFPAY | END 2023-08-07 07:06 | disposition home or self-care (01) | LOC: HO.HOSX 07:05 | PROVIDERS: Visit Provider Orthopaedic Surgery | DX: Z13.89 Encounter for screening for other disorder (principal) ==

== ENCOUNTER 2023-08-07 14:40 | Outpatient (AMB) | payer OTHER, SELFPAY ==
[2023-08-07 14:57] VITALS: BMI 41.2
--- NOTE | 2023-08-07 14:57 | A.OFFVIS_ITS ---
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 The patient states that she 1st injured her left knee several years ago when she fell directly onto her knee. Her symptoms have gotten progressively worse over the last few months. She has failed the last 6 weeks of conservative treatment. She has tried Tylenol and Aleve which gave her minimal relief. She states that her left knee gives out, clicks and pops. Allergies No Known Allergies Allergy (Mild, Verified 08/07/23 15:12) NOT APPLICABLE Medication List - Last Reconciled 08/08/23 by Filipe Mcdowell MD albuterol sulfate 90 mcg/actuation inhalation alprazolam 0.25 mg PO DAILY PRN bupropion HCl XL (Wellbutrin XL) 300 mg PO QAM bupropion HCl XL (Wellbutrin XL) 150 mg PO QAM estradiol-norethindrone acet 1-0.5 mg (Mimvey) 1 tab PO DAILY fluticasone furoate-vilanterol 100-25 mcg/dose (Breo Ellipta) 1 inh inhalation DAILY fluticasone propionate 50 mcg/actuation 2 sprays intranasal DAILY galcanezumab-gnlm (Emgality Pen) 120 mg subcut ONCE 30 days lisinopril 5 mg PO DAILY meloxicam 7.5 mg PO Q12H PRN 1 month rimegepant (Nurtec ODT) 75 mg orally daily PRN; 32 days PFSH Medical History (Updated 08/07/23 @ 07:05 by Filipe Mcdowell MD) Asthma Hypertension Hemorrhoids Depression Anxiety Migraine Surgical History H/O colonoscopy History of esophagogastroduodenoscopy (EGD) Hx of cholecystectomy Family History Mother Breast CA Diabetes Hypertension Depression Anxiety Father Hypertension Social History (Updated 06/11/23 @ 14:27 by Diane Steiner LPN) Household Members: Children Alcohol intake: current Alcohol intake frequency: does not drink Patient Tobacco Use Status: Never used 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 Vital Signs: BMI result Body Mass Index 41.2 Const Other: Well-nourished well-developed very friendly female awake alert and oriented x3 in no acute distress Extrem Other: Bilateral lower extremity examination shows good capillary refill, no skin lesio ns noted, normal sensation light touch Left knee examination shows a minimal effusion, minimal crepitus with range of motion, positive Gera's test, no instability Results Reviewed Results Reviewed: Standing full weight-bearing x-rays of the patient's left knee show mild joint space narrowing, no acute bony abnormalities Assessment & Plan Assessment & Plan (1) Left knee pain: Code(s): M25.562 - Pain in left knee Category: Medical Plan Ms. Chau presents with progressively worsening left knee pain and mechanical symptoms most likely due to a tear of her medial meniscus. Thus, I will send her for an MRI of her left knee for further evaluation. I will see her back once the MRI is completed to discuss the findings and treatment options. I also gave her a prescription for meloxicam which she will take instead of Aleve. Feel free to call me at any time should questions regarding her orthopedic management arise. Thank you very much for asking me to see this very friendly patient. I spent 21 minutes in reviewing the patient's records and imaging studies, seeing the patient and documenting in the medical record. Orders: Orders XR knee LT 3V 08/07/23 M25.562 - Pain in left knee MR knee LT wo con 08/07/23 M25.562 - Pain in left knee Medications: New meloxicam 7.5 mg PO Q12H PRN 60 tabs 2RF pain 1 month Coding Level of Care Code New Pt Level 3 (42454) Diagnoses Left knee pain M25.562
== END 2023-08-07 15:20 | disposition home or self-care (01) ==
PROVIDERS: PCP Student in an Organized Health Care Education/Training Program; Visit Provider Orthopaedic Surgery
DX: M25.562 Pain in left knee (principal)
CPT/HCPCS: 99204

== ENCOUNTER 2023-08-20 13:44 | Outpatient (AMB) | payer OTHER, SELFPAY ==
[2023-08-20 13:58] VITALS: BP 136/80; PULSE 86; O2SAT 95; BMI 41.8
--- NOTE | 2023-08-20 13:58 | A.OFFVIS_ITS ---
Vital Signs 08/20/23 13:58 Height 5 ft 7 in Weight 267 lb BMI 41.8 BP 136/80 Blood Pressure Location Rt brachial Position Sitting Pulse 86 Pulse Source Pulse Oximeter Pulse Oximetry (%) 95 Oxygen Delivery Method Room Air Intake Visit Reasons: persistent shortness of breath Allergies No Known Allergies Allergy (Mild, Verified 08/20/23 14:01) NOT APPLICABLE HPI HPI persistent shortness of breath: Details: Jeanine is pleasant 43 year old female, never smoker with underlying asthma. She was suboptimally controlled using Flovent and was switched to Breo. She reports significant improvement in symptoms, with decrease in frequency of wheezing, dyspnea and cough. PCP also switched lisinopril to losartan and has had decreased frequency of dry cough. She is minimally using albuterol, previously using albuterol MDI and nebulizer multiple times per day. Of note, she has been noncompliant with CPAP therapy, prescribed by PCP due to mask issues and congestion, will be following up with PCP to discuss. She denies any visits to urgent care or hospitalizations since the last visit.. Today she presents to review PFT, RAST, and echo. 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 Review of Systems Const Denies chills, Denies excessive sweating, Denies fever(s), Denies headache(s) and Denies night sweats Eyes Denies dry eyes, Denies irritation and Denies itchy eyes ENT Reports Normal hearing present, Denies headache(s), Denies nasal congestion, Denies nasal discharge, Denies post nasal drip and Denies sore throat Card Denies chest pain, Denies chest pain at rest, Denies chest pain with activity, Denies claudication, Denies leg edema, Denies orthopnea and Denies paroxysmal nocturnal dyspnea Resp Denies chest congestion, Denies excessive phlegm production, Denies pain on inspiration, Denies pain with cough and Denies stridor Musc Denies myalgias Neuro Reports Normal hearing present and Denies headache(s) Endo Denies excessive sweating Jorge/Lymph Denies lymphadenopathy Aller/Immun Denies itchy eyes and Denies seasonal rhinorrhea Physical Exam Vital Signs: Last Vital Signs Pulse 86 08/20/23 13:58 BP 136/80 08/20/23 13:58 Pulse Ox 95 08/20/23 13:58 Oxygen Delivery Method Room Air 08/20/23 13:58 BMI result Body Mass Index 41.8 Const General: cooperative, healthy appearing, comfortable, no acute distress, well developed and alert Nutritional Appearance: obese Orientation/consciousness: patient oriented x3 Limitations: no limitations HEENT Head: Yes normal to inspection, Yes normocephalic and Yes atraumatic Ears: hearing grossly normal bilaterally and external ears normal Eyes General: appearance normal, both eyes and all related structures Eyelids: Yes eyelids normal Sclerae: sclerae normal EOM: EOMs intact bilaterally Neck Neck: Yes normal visual inspection and Yes no lymphadenopathy Lymphatic: no lymphadenopathy noted Chest Chest palpation & inspection: normal inspection of the chest Resp Effort & Inspection: normal respiratory effort, able to speak in complete sentences, no audible wheezes, no cough, no stridor, not tachypneic, no tripod positioning and no use of accessory muscles Auscultation: clear to auscultation bilaterally Cardio Jugular venous distension: no JVD Rate: regular rate Rhythm: regular rhythm Skin Other: warm, dry General skin exam: no rashes or lesions noted Neuro General: patient oriented x3 Cranial nerves: Yes Normal hearing present Cognition (Neuro): normal cognition Gait exam (Neuro): Normal gait present Extrem Other: 1+ pitting edema BLE Psych Appearance: grossly normal and well kempt Speech and movement: Normal speech and movement present and Clear speech present Affect: normal affect Attitude: cooperative Thought process: Normal thought process present Thought content: Normal thought content present Insight: Good insight present (Psych) Judgement: Good judgement present (Psych) Results Reviewed Results Reviewed: [address] [address] Cardiology Report Signed Patient: Jeanine Chau MR#: [id number] : 1980 Acct:[id number] Age/Sex: 43 / F ADM Date: 06/26/23 [facility] Attending Dr: Marlene Burns NP Ordering Physician: Marlene Burns NP Date of Service: 06/26/23 Procedure(s): CA echo transthoracic complete Accession Number(s): cc: Marlene Burns NP~ Transthoracic Echocardiogram Patient (Last, First, Middle): Jeanine Chau, Gender: Female Date of : 1980 Age: 43 Procedure Date: 06/26/2023 Procedure Type: Transthoracic Echocardiogram Location: OP Height: 170.18 cm Weight: 119.29 kg BSA: 2.27 m2 Heart Rate: 76 bpm BP: 108 / 64 mmHg Quality Control Technician: PUNEET Referring MD: Marlene Burns NP Symptoms: R06.00 - Dyspnea, unspecified Study Quality: Adequate ECG Rhythm: Frequent ventricular premature beats Conclusions: - Normal left ventricular size, thickness, systolic function, and wall motion. The visually estimated ejection fraction is between 55-60%. Diastolic function is normal for age. - Normal right ventricular cavity size and systolic function. Findings Procedure Information The quality of the study was technically difficult. The study quality is limited by patients body habitus. Left Ventricle Normal left ventricular size, thickness, systolic function, and wall motion. The visually estimated ejection fraction is between 55-60%. Diastolic function is normal for age. Right Ventricle Normal right ventricular cavity size and systolic function. Atria Both atria are normal in size. Aortic Valve Normal aortic valve structure and function. There is no aortic valve stenosis. There is no aortic valve regurgitation. Mitral Valve Normal mitral valve structure and function. There is no mitral valve regurgitation. There is no mitral valve stenosis. Pulmonic Valve Normal pulmonic valve structure and function. Tricuspid Valve Normal tricuspid valve structure and function. There is no tricuspid valve regurgitation. Tricuspid regurgitation envelope is inadequate for calculation of right ventricular systolic pressure. Normal right atrial pressure. Great Vessels All visible segments of the aorta are normal in size. The visualized portions of the pulmonary artery and branches are normal. Venous The inferior vena cava is normal in size and collapses greater than 50% with inspiration. Pericardium/Pleural There is no evidence of pericardial effusion. Prior Study Comparison No prior study available for comparison. Measurements 2D Linear Measurements IVSd: 0.74 0.6-0.9/0.6-1.0 cm LVIDd: 5.57 3.9-5.3/4.2-5.9 cm LVIDs: 3.54 2.0-3.6 cm LVPWd: 0.73 0.7-1.1 cm LA Diam: 4.10 2.7-3.8/3.0-4.0 cm LV Mass: 182.84 67-162/88-224 g LVOT Diam: 2.20 3.0+(-)1.3 cm 2D Systolic Function EF 4C: 63.30 >55% EF 2C: 56.40 >55% EF BiP: 58.20 >55% Mitral Valve MV Pk E: 0.94 MV PK A: 0.65 MV Decel Time: 200.00 E/A: 1.50 E'Lateral: 8.05 E'Medial: 11.20 E/E' Med: 8.40 E/E' Lat: 11.70 PHT: 59.00 MVA PHT: 3.73 Decel [place]: 4.72 Aortic Valve AoV Pk Drew: 1.35 AoV Pk Grad: 7.00 MAGGIE: 3.77 LVOT LVOT Pk Drew: 1.34 LVOT Mn Drew: 0.84 LVOT VTI: 0.26 LVOT Pk Grad: 7.00 LVOT Mn Grad: 3.00 LVOT Diam: 2.20 LVOT Area: 3.80 Diastolic Function MV Pk E: 0.94 MV Pk A: 0.65 E/A: 1.50 E'Medial: 11.20 E/E' Med: 8.40 E' Laterial: 8.05 E/E' Lat: 11.70 Right Ventricle TAPSE (mm): 26.30 TVS' Drew: 12.70 Tricuspid Valve RA Press: 3.00 Great Vessels Aorta Sinus of Valsalva: 2.60 2.0-3.5 cm Ao Asc: 2.90 2.1-3.4 cm Pulmonary Veins Pulm Vein S/D 1.60 Pulmonary Valve PV Pk Drew: 0.90 Peak PV Grad: 3.00 Updated in Other Vendor System with Status of Final Ozzie Devi MD electronically signed on 06/26/2023 7:08:09 PM with status of Final Dictated By: Ozzie Devi MD Signed By: <Electronically signed by Ozzie Devi MD in OV> 06/26/23 1908 DD/ 1500 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 The AHI was 8/hr and oxygen marty was 82%. Code(s): G47.33 - Obstructive sleep apnea (adult) (pediatric) Category: Medical (5) Obesity: Code(s): E66.9 - Obesity, unspecified Category: Medical Plan Reviewed PFT which revealed moderate restrictive ventilatory defect with no bronchodilator response. Decreased expiratory reserve volume suggests extrathoracic restriction likely secondary to abdominal obesity. DLCO normal. Alfa waters reports improvement in symptoms since switching from Flovent to Breo, advised to continue. She is aware to call the office for worsening respiratory control. Also discussed weight contributing to symptoms, will work towards weight loss. Echo unremarkable. RAST negative. All questions were answered and patient is in agreement of plan. Will follow-up in three months or sooner if needed. Coding Level of Care Code Est Pt Level 4 (27500) Diagnoses Asthma J45.909 Dyspnea R06.00 Environmental allergies Z91.09 JONO (obstructive sleep apnea) G47.33 Obesity E66.9
== END 2023-08-20 14:24 | disposition home or self-care (01) ==
PROVIDERS: PCP Student in an Organized Health Care Education/Training Program; Visit Provider Nurse Practitioner Family
DX: J45.909 Unspecified asthma, uncomplicated (principal); R06.00 Dyspnea, unspecified; Z91.09 Other allergy status, other than to drugs and biological substances; G47.33 Obstructive sleep apnea (adult) (pediatric); E66.9 Obesity, unspecified
CPT/HCPCS: 99214

== ENCOUNTER → 2023-08-20 13:44 | Outpatient (BNVA) | payer OTHER, SELFPAY | PROVIDERS: PCP Student in an Organized Health Care Education/Training Program; Visit Provider Nurse Practitioner Family ==

== ENCOUNTER 2023-09-08 18:05 | Outpatient (REF) | payer OTHER, SELFPAY ==
--- NOTE | ~2023-09-08 | MR_ITS ---
EXAMINATION: MR KNEE WITHOUT CONTRAST, LEFT CLINICAL INFORMATION: Pain in the left knee. COMPARISON: None available. TECHNIQUE: MRI of the knee without contrast was performed using routine sequences on a high-field scanner. FINDINGS: MENISCI: Medial Meniscus: There is mild outward extrusion of the meniscus likely related to the arthrosis of the joint. Possible tiny femoral surface superficial tear of the posterior horn. See sagittal image 6 series 8. Lateral Meniscus: There is horizontal increased signal in the anterior horn likely extending to the femoral articular surface. Remaining portion of the meniscus intact. Findings more likely reflect meniscal tear than grade 2 signal. LIGAMENTS: Cruciate: Intact enthesopathic cysts at the posterior cruciate ligament tibial attachment. Collateral: Intact EXTENSOR MECHANISM: Intact ARTICULAR CARTILAGE/BONE: Patellofemoral Compartment: There is a focal 3 mm area of moderate grade cartilage loss in the median ridge. Minimal surface irregularity of the cartilage of the medial facet. Trochlear cartilage normal. Overall mild patellofemoral arthrosis. Medial Compartment: There are marginal osteophytes. There are subchondral cysts in the weightbearing portion of the compartment on both the femoral and tibial sides of the joint. A broad area of high-grade cartilage loss in the weightbearing portion of the compartment. Findings indicative of rtbxlzbs-nd-lovqky osteoarthritis. Lateral Compartment: There are marginal osteophytes. Cartilage grossly intact. Overall mild arthrosis. JOINT FLUID AND BURSAE: There is a mild joint effusion and synovitis. MR/MR knee LT wo con IMPRESSION: 1. Tricompartmental osteoarthritis with degenerative changes most prominent in the medial compartment being moderate to severe. 2. Possible tear of the posterior horn of the medial meniscus. 3. Probable tear of the anterior horn of the lateral meniscus.
== END 2023-09-08 18:06 | disposition home or self-care (01) ==
LOC: HO.MRI 18:05
PROVIDERS: PCP Student in an Organized Health Care Education/Training Program; Visit Provider Orthopaedic Surgery
DX: M25.562 Pain in left knee (principal)
CPT/HCPCS: 73721

== ENCOUNTER 2023-09-12 11:18 | Outpatient (REF) | payer OTHER, SELFPAY ==
[2023-09-12 14:38] LABS: Estimated Average Glucose 117 mg/dL; Hemoglobin A1c % 5.7 % (<6.0)
[2023-09-12 15:01] LABS: Microalbumin Urine < 5.0 mg/L
== END 2023-09-12 11:19 | disposition home or self-care (01) ==
LOC: HO.CHCLDS 11:18
PROVIDERS: Visit Provider Pediatrics
DX: E66.01 Morbid (severe) obesity due to excess calories (principal); Z68.41 Body mass index [BMI] 40.0-44.9, adult; I10 Essential (primary) hypertension; R60.9 Edema, unspecified; Z13.1 Encounter for screening for diabetes mellitus
CPT/HCPCS: 36415; 82043; 82570; 83036

== ENCOUNTER 2023-09-23 11:09 | Outpatient (AMB) | payer OTHER, SELFPAY ==
--- NOTE | 2023-09-23 11:20 | MHC.OFFVIS ---
Intake Visit Reasons: OV-Left knee MRI review Intake Note: Jeanine is a 43 year old female who presents with complaints of progressively worsening left knee pain and giving way. The patient states that she first injured her left knee several years ago when she fell directly onto her knee. Her symptoms have gotten progressively worse over the last few months. She has failed the last 6 weeks of conservative treatment. She has tried Tylenol and Aleve which gave her minimal relief. She states that her left knee gives out, clicks and pops. Allergies No Known Allergies Allergy (Mild, Verified 09/23/23 11:20) NOT APPLICABLE Medication List - Last Reconciled 09/23/23 by Filipe Mcdowell MD albuterol sulfate 90 mcg/actuation inhalation alprazolam 0.25 mg PO DAILY PRN bupropion HCl XL (Wellbutrin XL) 300 mg PO QAM bupropion HCl XL (Wellbutrin XL) 150 mg PO QAM cholecalciferol (vitamin D3) 25 mcg PO DAILY cyanocobalamin (vitamin B-12) 3,000 mcg PO DAILY estradiol-norethindrone acet 1-0.5 mg (Mimvey) 1 tab PO DAILY fluticasone furoate-vilanterol 100-25 mcg/dose (Breo Ellipta) 1 inh inhalation DAILY fluticasone propionate 50 mcg/actuation 2 sprays intranasal DAILY galcanezumab-gnlm (Emgality Pen) 120 mg subcut ONCE 30 days losartan 50 mg PO DAILY meloxicam 15 mg PO DAILY PRN 3 months rimegepant (Nurtec ODT) 75 mg orally daily PRN; 32 days [facility] Medical History (Updated 09/23/23 @ 12:11 by Filipe Mcdowell MD) Asthma Hypertension Hemorrhoids Depression Anxiety Migraine Surgical History H/O colonoscopy History of esophagogastroduodenoscopy (EGD) Hx of cholecystectomy Family History Mother Breast CA Diabetes Hypertension Depression Anxiety Father Hypertension Social History Household Members: Children Alcohol intake: current Alcohol intake frequency: does not drink Patient Tobacco Use Status: Never used 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 Const Other: Well-nourished well-developed very friendly female awake alert and oriented x3 in no acute distress Extrem Other: Bilateral lower extremity examination shows good capillary refill, no skin lesions noted, normal sensation light touch Left knee examination shows a minimal effusion, minimal crepitus with range of motion, tenderness along her medial joint line, positive Gera's test, no instability Results Reviewed Results Reviewed: Standing full weight-bearing x-rays of the patient's left knee show mild diffuse joint space narrowing, no acute bony abnormalities MRI of the patient's left knee shows mild degenerative changes most significant in the medial compartment, tearing of the medial meniscus, no acute bony abnormalities Assessment & Plan Assessment & Plan (1) Tear of medial meniscus of left knee: Code(s): S83.242A - Other tear of medial meniscus, current injury, left knee, initial encounter Category: Medical Plan Ms. Chau presents with progressively worsening left knee pain and mechanical symptoms due to early degenerative joint disease as well as tearing of her medial meniscus. I had a lengthy discussion with the patient regarding the treatment options. At this point she has failed continued non operative treatments. The risks and benefits of left knee arthroscopic surgery were discussed at length with the patient. The patient wishes to proceed with surgery. She will be scheduled for next available date. Surgery will involve left knee arthroscopic partial medial meniscectomy. She does understand that she may not get 100% relief of her symptoms depending on the severity of her degenerative changes. The patient will follow-up as instructed. Feel free to call me at any time should questions regarding her orthopedic management arise. I spent 20 minutes in reviewing the patient's records and imaging studies, seeing the patient and documenting in the medical record. Coding Level of Care Code Est Pt Level 3 (41602) Diagnoses Tear of medial meniscus of left knee S83.242A
== END 2023-09-23 11:42 | disposition home or self-care (01) ==
PROVIDERS: PCP Student in an Organized Health Care Education/Training Program; Visit Provider Orthopaedic Surgery
DX: S83.242A Other tear of medial meniscus, current injury, left knee, initial encounter (principal)
CPT/HCPCS: 99214

== ENCOUNTER → 2023-09-23 11:09 | Outpatient (BNVA) | payer OTHER, SELFPAY | PROVIDERS: PCP Student in an Organized Health Care Education/Training Program; Visit Provider Orthopaedic Surgery ==

== ENCOUNTER 2023-10-10 05:56 | Day surgery (SDC) | payer OTHER, SELFPAY ==
[2023-10-07 15:26] VITALS: BMI 41.8
--- NOTE | 2023-10-08 12:57 | HO.ANESPROP2 ---
HPI - Anesthesia Eval Consult details Narrative: 43yo F for Left Knee Arthroscopy with partial medial meniscectomy Follows [facility] pulmo for asthma. Symptoms improved with med change. Stable at 08/2023 office visit. [facility] Active Problems Active Problems: All Active Problems Tear of medial meniscus of left knee (Acute) Left knee pain (Acute) Environmental allergies (Acute) Dyspnea (Acute) JONO (obstructive sleep apnea) (Acute) Daytime sleepiness (Acute) Snoring (Acute) Sleep difficulties (Acute) Periodic limb movement sleep disorder (Acute) Obesity (Acute) Cancer phobia (Acute) Change in bowel habit (Acute) Weight gain (Acute) Schatzki's ring (Acute) Globus hystericus (Acute) Chronic GERD (Acute) Asthma (Acute) Hemorrhoids (Acute) Anxiety (Acute) Migraine (Acute) Past Medical History Medical History GERD (gastroesophageal reflux disease) Sleep apnea Asthma Hypertension Hemorrhoids Depression Anxiety Migraine Family History Family History Mother Breast CA Diabetes Hypertension Depression Anxiety Father Hypertension Surgical History Surgical History H/O colonoscopy History of esophagogastroduodenoscopy (EGD) Hx of cholecystectomy History of Problems with Anesthesia: No Social History Social History Household Members: Children Alcohol intake: current Alcohol intake frequency: does not drink Patient Tobacco Use Status: Never used 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 Allergy/AdvReac Type Severity Reaction Status Date / Time No Known Allergies Allergy Verified 10/07/23 15:32 Active Medications: Current Medications Cefazolin Sodium/Dextrose (Ancef) 2 gm in 50 mls @ 100 mls/hr IV PREOP ONE Stop: 10/10/23 05:50 Home Medications ?Medication ?Instructions ?Recorded ?Confirmed ?Last Taken ?Type estradiol-norethindrone acet 1 1 tab PO DAILY 03/19/22 10/10/23 Unknown History mg-0.5 mg tablet (Mimvey) albuterol sulfate 90 mcg/actuation 1 inh inhalation Q4H PRN Shortness 07/02/22 10/10/23 Unknown History aerosol inhaler Of Breath Or Wheezing alprazolam 0.25 mg tablet 0.25 mg PO DAILY PRN Anxiety 07/02/22 10/10/23 Unknown History bupropion HCl 150 mg 24 hr tablet, 150 mg PO QAM 06/11/23 10/10/23 Unknown History extended release (Wellbutrin XL) bupropion HCl 300 mg 24 hr tablet, 300 mg PO QAM 06/11/23 10/10/23 Unknown History extended release (Wellbutrin XL) cholecalciferol (vitamin D3) 25 25 mcg PO DAILY 08/20/23 10/10/23 Unknown History mcg (1,000 unit) capsule cyanocobalamin (vitamin B-12) 3,000 mcg PO DAILY 08/20/23 10/10/23 Unknown History 3,000 mcg capsule losartan 25 mg tablet 50 mg PO DAILY 08/20/23 10/10/23 Unknown History hydrochlorothiazide 25 mg tablet 25 mg PO DAILY 10/10/23 10/10/23 Unknown History Exam Height,Weight and Vital Signs: Height 5 ft 7 in Weight 121.109 kg Pertinent Lab Results Pertinent Lab Results: Laboratory Tests 06/06/21 05/07/23 04:48 10:19 WBC 8.4 Hgb 11.9 L Hct 36.8 L Plt Count 261 Sodium 140 Potassium 4.1 Chloride 106 Carbon Dioxide 25 BUN 13 Creatinine 0.64 Narrative Narrative: ECHO 2023 Conclusions: - Normal left ventricular size, thickness, systolic function, and wall motion. The visually estimated ejection fraction is between 55-60%. Diastolic function is normal for age. - Normal right ventricular cavity size and systolic function. PFT which revealed moderate restrictive ventilatory defect with no bronchodilator response. Decreased expiratory reserve volume suggests extrathoracic restriction likely secondary to abdominal obesity. DLCO normal. Assessment and Plan Assessment Anesthesia Assessment: Chart Reviewed Final Anesthetic Review History of Problems with Anesthesia: No
[2023-10-10] VITALS (7 sets, daily range): BP systolic 120–137; BP diastolic 61–76; PULSE 72–89; RESP 16; TEMP 36.1–36.8; O2SAT 93–97; BMI 41.0
--- OUTSIDE RECORDS SUMMARY | 2023-10-10 05:59 | XMS_ITS | Continuity of Care Document ---
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 [address], [address] [place] [address]- Attending Physician: Mike Lofton MD Referring Physician: Mike Lofton MD Allergies, Adverse Reactions, Alerts Substance Reaction Severity Status Climara Pro itching redness Active Medications Abilify Tablet Daily, Maintenance, 05/10/14 14:52:19 Start Date: 05/10/14 Status: Ordered Activella oral tablet 1 tablet, By Mouth, Daily, # 28 tablet, 11 Refills, Maintenance, 11/06/21 13:55:00 EDT, Tablet, [facility]/pharmacy #[id number], Partial fill upon patient request if the prescription is for a schedule II opioid drug., 1 tablet By Mouth Daily, 170, cm, 10/04/21 16:... Start Date: 11/06/21 Status: Ordered albuterol 0.083% inhalation solution 3 mL = 2.5 mg, Inhalation, Every 6 hours, # 120 each, 0 Refills, Maintenance, 06/02/17 8:13:35, Solution Start Date: 06/02/17 Status: Ordered Emgality 0 Refills, Maintenance, 11/01/22 9:35:00 EDT, Partial fill upon patient request if the prescriptionis for a schedule II opioid drug. Start Date: 11/01/22 Status: Ordered estradiol 1 mg oral tablet 1 mg, 1, tablet, By Mouth, Daily, # 30 tablet, Refills 1, Tot. Refills 1, Maintenance, 08/19/22 17:45:00 EDT, Route to Pharmacy Electronically, [facility]/pharmacy #[id number], Partial fill upon patient request if the prescription is for a schedule II opioid drug.... Start Date: 08/19/22 Status: Ordered gabapentin 100 mg oral capsule See Instructions, 1 to 3 capsule capsules at night, Refills 0, Maintenance, 05/30/20 10:22:00 EDT, Instructions Replace Required Details, Partial fill upon patient request if the prescription is for a schedule II opioid drug. Start Date: 05/30/20 Status: Ordered lisinopril 5 mg oral tablet 5 mg, 1, tablet, By Mouth, Daily, Refills 0, Maintenance, 05/10/22 14:25:00 EST, Partial fill upon patient request if the prescription is for a schedule II opioid drug. Start Date: 05/10/22 Status: Ordered Magnesium Oxide By Mouth, 0 Refills, Maintenance, 05/30/20 10:23:00 EDT, Partial fill upon patient request if the prescription is for a schedule II opioid drug. Start Date: 05/30/20 Status: Ordered Maxalt 10 mg oral tablet 1 tablet = 10 mg, By Mouth, Daily, 0 Refills, Maintenance, 05/30/20 10:23:00 EDT, Partial fill uponpatient request if the prescription is for a schedule II opioid drug. Start Date: 05/30/20 Status: Ordered Mimvey 1 mg-0.5 mg oral tablet 1 tablet, By Mouth, Daily, # 90 tablet, 4 Refills, Maintenance, 11/07/22 7:55:00 EDT, Tablet, [facility]/pharmacy #[id number], Partial fill upon patient request if the prescription is for a schedule II opioid drug., 1 tablet By Mouth Daily, 170, cm, 11/01/22 9:30:... Start Date: 11/07/22 Status: Ordered Nurtec ODT 75 mg oral tablet, disintegrating 1 tablet = 75 mg, By Mouth, Every 24 hours, PRN as needed for migraine headache, not to exceed 75 mg in 24 hours, # 8 tablet, 5 Refills, Maintenance, 03/13/21 16:24:00 EST, DIS Tablet, Partial fill upon patient request if the prescription is for a trev... Start Date: 03/13/21 Status: Ordered Vitamin B12 0 Refills, Maintenance, 05/30/20 10:23:00 EDT, Partial fill upon patient request if the prescription is for a schedule II opioid drug. Start Date: 05/30/20 Status: Ordered Xanax 0.5 mg oral tablet 0.5 mg, 1, tablet, By Mouth, 3 times a day, 1mg tablet, Refills 0, Maintenance, 06/27/16 16:03:26 Start Date: 06/27/16 Status: Ordered Problem List Condition Confirmation Course Effective Dates Status H ealth Status Informant Anxiety Confirmed Active Asthma Confirmed Active Contraception Confirmed Active Depression Confirmed Active Family history of breast cancer Confirmed Active Dense breast tissue on mammogram Confirmed Active Medical examinations/reports status Confirmed Active Migraines Confirmed Active Perimenopause Confirmed Active Severe obesity Confirmed Active Non-rapid eye movement sleep arousal disorder, sleep terror type Confirmed Active Vital Signs Most recent to oldest [Reference Range]: 1 Weight 122.93 kg (07/30/23 5:02 PM) Blood Pressure [90-138/55-84 mm Hg] 138/ 77mm Hg (07/30/23 5:02 PM) Blood pressure sites Arm, right (07/30/23 5:02 PM) Weight Obtained Via Standing scale (07/30/23 5:02 PM) Social History Social History Type Response Smoking Status Never (less than 100 in lifetime) entered on: 07/22/22 Sex Female Note * Bev Ontiveros: PERFORM Event Display: Patient Education/Instruction Authored Date: [id number] Ambulatory Adult [facility] [employer]MINIST[employer] [address] [place] [address] Name: ALICIA HASSAN : 1980?? Visit: 07/30/2023 16:26?? Ambulatory Visit Instructions ?? Your Care Team Primary Care Provider Yoli Nolen MD? This Visit Provider Dontrell Park Your Diagnosis Well woman exam Vitals Signs Systolic Blood Pressure: 138 mm Hg Weight: 122.93 kg Diastolic Blood Pressure: 77 mm Hg ?? What to do next Scheduled Follow-Up Appointments Friday 1:40 PM EDT ?? With: Gabbie Keita Where: [facility] [address] [place] [address]- Status: Pending Friday 4:00 PM EDT ?? Where: [facility] [address], [address] [place] [address]- Status: Pending Follow-Up Appointments Follow Up with??Dontrell Park When:??Within 1 year Why: Annual Where: [address] [facility] [place] [address]- Medications The list below reflects the information in our records and provided by you today along with any changes made during this visit. Please continue your medications until treatment is completed or stopped by your provider. If this is different from the information you have or there are other questions,please contact the prescribing provider. What How Much When Why Instructions Unchanged Albuterol (albuterol 0.083% inhalation solution) 3 Milliliter Inhalation Every 6 hours Unchanged Alprazolam (Xanax 0.5 mg oral tablet) 1 tab(s) Oral 3 times a day 1mg tablet ?? Unchanged Aripiprazole (Abilify Tablet) Daily Unchanged Cyanocobalamin (Vitamin B12) Unchanged Estradiol (estradiol 1 mg oral tablet) 1 tab(s) Oral Daily Menopause Unchanged Estradiol-Norethindrone (Activella oral tablet) 1 tab(s) Oral Daily Unchanged Estradiol-Norethindrone (Mimvey 1 mg-0.5 mg oral tablet) 1 tab(s) Oral Daily Unchanged Gabapentin (gabapentin 100 mg oral capsule) See instructions 1 to 3 capsule capsules ??at night ?? Unchanged galcanezumab (Emgality) Unchanged Lisinopril (lisinopril 5 mg oral tablet) 1 tab(s) Oral Daily Unchanged Magnesium Oxide Oral Unchanged rimegepant (Nurtec ODT 75 mg oral tablet, disintegrating) 1 tab(s) Oral Every 24 hours as needed for as needed for migraine headache not to exceed 75 mg in 24 hours ?? Unchanged Rizatriptan (Maxalt 10 mg oral tablet) 1 tab(s) Oral Daily Medications and Immunizations Administered Medications Given During Visit No medications given during this visit.?? Allergies (NKA means No Known Allergies) Climara Pro??(itching, redness) Common Emergency Awareness Tips IS IT A STROKE? Act FAST and Check for these signs: FACE Does the face look uneven? ARM Does one arm drift down? SPEECH Does their speech sound strange? TIME Call at any sign of stroke ?? Heart Attack Signs Chest discomfort: Most heart attacks involve discomfort in the center of the chest and lasts more than a few minutes, or goes away and comes back. It can feel like uncomfortable pressure, squeezing, fullness or pain. Discomfort in upper body: Symptoms can include pain or discomfort in one or both arms, back, neck, jaw or stomach. Shortness of breath: With or without discomfort. Other signs: Breaking out in a cold sweat, nausea, or lightheaded. Remember, MINUTES DO MATTER. If you experience any of these heart attack warning signs, call to get immediate medical attention! ?? Smoking can increase your chances of developing chronic health problems and can cause harmful effects to other family members in your house. If you smoke, you are strongly encouraged to quit. Please call [facility] at [phone] or [phone] ([phone]) or log in to [email or web address] for referrals to smoking cessation programs. ?? The National Suicide Prevention Hotline is available 07/10 if you or someone you know needs to find a reason to keep living. By calling 8-494-489-[employer] (2060) you'll be connected to a skilled, trained counselor at a crisis center in your area. [facility] bVisual Portal You can view and manage your care through the patient portal or by using a health care aristides of your choosing. [employer] is a website that allows you to securely view your medical information including your hospital discharge summary, office visit summaries, medications and follow-up visits. You can also request appointments, renew medications, and request access to your medical information using a health care aristides of your choosing, or just ask a question. You can enroll at [email or web address] or register during your next office visit. [facility], in keeping with [facility] guidance, no longer requires face masks for staff, patientsor visitors in most situations. Similiar to time spent indoors at other locations, there is the chance that you were exposed to repiratory viruses during your time with us (such as flu or COVID-19). If you develop symptoms concerning for a viral respiratory infection, please seek testing (and treatment if indicated) from your medical provider or home test kit. ?? Disclaimer: The information provided is of a general nature and is intended to be used in conjunction with the recommendations and advice of your health care practitioner. Every effort has been made to ensure that the information provided is accurate and complete at the time it is provided to you however, as your needs change, or, as new information becomes available, different or additional instructions may be required. ?? If you have questions, please consult with your primary care provider or pharmacist, as appropriate. This information is not intended to serve as substitution for assessment and evaluation by a qualified health care provider. If you do not have a primary care provider, you may find a [facility] provider by calling [facility] bVisual [facility] at [phone]. Patient Care team information Care Team Personnel Name: Yoli Nolen MD Position: [facility] Outreach Member Role: PCP Address: Address: [address] [place] [address]- Name: Farzana Castro Position: [facility] Outreach Member Role: Lifetime Consulting Physician Care Team Related Persons Name: SAMRA HASSAN Address: home [address] [place] [address] Name: DUY CHAVEZ Address: home [address] [place] [address]
--- OUTSIDE RECORDS SUMMARY | 2023-10-10 05:59 | XMS_ITS | Continuity of Care Document ---
Author Organization [facility] Address [address], [address] [place] [address]- Care Team Providers Care Publications Inspector Name Role Phone Yoli Nolen MD Primary Care Physician Encounter [facility] Date(s): 11/05/22 - 12/05/22 [facility] [address], [address]th [place] [address]- Allergies, Adverse Reactions, Alerts Substance Reaction Severity Status Climara Pro itching redness Active Medications Abilify Tablet Daily, Maintenance, 05/10/14 14:52:19 Start Date: 05/10/14 Status: Ordered Activella oral tablet 1 tablet, By Mouth, Daily, # 28 tablet, 11 Refills, Maintenance, 11/06/21 13:55:00 EDT, Tablet, [facility]/pharmacy #[id number], Partial fill upon patient request if the [...] 08/19/22 17:45:00 EDT, Route to Pharmacy Electronically, [facility]/pharmacy #[id number], Partial fill upon patient request if [...] 4 Refills, Maintenance, 11/07/22 7:55:00 EDT, Tablet, [facility]/pharmacy #[id number], Partial fill upon patient request if [...] arousal disorder, sleep terror type Confirmed Active Social History Social History Type Response Smoking Status Never (less than 100 in lifetime) entered on: 07/22/22 Sex Patient Care team information Care Team Personnel Name: Yoli Nolen MD Position: [facility] Outreach Member Role: PCP Address: Address: [address] [place] [address]- Name: Farzana Castro Position: [facility] Outreach Member Role: Lifetime Consulting Physician Care Team Related Persons Name: SAMRA HASSAN Address: home [address] [place] [address] Name: DUY CHAVEZ Address: home [address] [place] [address]
--- OUTSIDE RECORDS SUMMARY | 2023-10-10 05:59 | XMS_ITS | Continuity of Care Document ---
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 Attending Physician: Mendoza Tariq Admitting Physician: AdmtrMendoza Referring Physician: Admtr, Ar8 Allergies, Adverse Reactions, Alerts Substance Reaction Severity Status Climara Pro itching redness Active Medications Abilify Tablet Daily, Maintenance, 05/10/14 14:52:19 Start Date: 05/10/14 Status: Ordered Activella oral tablet 1 tablet, By Mouth, Daily, # 28 tablet, 11 Refills, Maintenance, 11/06/21 13:55:00 EDT, Tablet, [facility]/pharmacy #[id number], Partial fill upon patient request if the prescription is for a schedule II opioid drug., 1 tablet By Mouth Daily, 170, cm, 10/04/21 16:... Start Date: 11/06/21 Status: Ordered albuterol 0.083% inhalation solution 3 mL = 2.5 mg, Inhalation, Every 6 hours, # 120 each, 0 Refills, Maintenance, 06/02/17 8:13:35, Solution Start Date: 06/02/17 Status: Ordered estradiol 1 mg oral tablet 1 mg, 1, tablet, By Mouth, Daily, # 30 tablet, Refills 1, Tot. Refills 1, Maintenance, 08/19/22 17:45:00 EDT, Route to Pharmacy Electronically, [facility]/pharmacy #[id number], Partial fill upon patient request if the [...] opioid drug. Start Date: 05/30/20 Status: Ordered Nurtec ODT 75 mg oral [...] Family history of breast cancer Confirmed Active Medical examinations/reports status Confirmed Active Migraines Confirmed Active Perimenopause Confirmed Active Severe obesity Confirmed Active Non-rapid eye movement sleep arousal disorder, sleep terror type Confirmed Active Social History Social History Type Response Smoking Status Never (less than 100 in lifetime) entered on: 07/22/22 Sex Patient Care team information Care Team Personnel Name: Yoli Nolen MD Position: [facility] Outreach Member Role: PCP Address: Address: [address] [place] [address] Name: Farzana Castro Position: [facility] Outreach Member Role: Lifetime Consulting Physician Care Team Related Persons Name: SAMRA HASSAN Address: home [address] [place] [address] Name: DUY CHAVEZ Address: home [address] [place] [address]
--- OUTSIDE RECORDS SUMMARY | 2023-10-10 05:59 | XMS_ITS | Continuity of Care Document ---
Author Organization [facility] ter Address [address] [place] [id number]- Care Team Providers Care Yard Pilot Name Role Phone Yoli Nolen MD Primary Care Physician Encounter [facility] Date(s): 09/10/23 - 09/10/[address] [address]- Encounter Diagnosis Migraine variant(Final) - 09/10/23 Discharge Disposition: A-D/C Home Attending Physician: Adam Santillan DO Admitting Physician: Adam Santillan DO Referring Physician: Not on Staff, Referring MD Allergies, Adverse Reactions, Alerts Substance Reaction Severity Status Climara Pro itching redness Active Medications Abilify Tablet Daily, Maintenance, 05/10/14 14:52:19 Start Date: 05/10/14 Status: Ordered Activella oral tablet 1 tablet, By Mouth, Daily, # 28 tablet, 11 Refills, Maintenance, 11/06/21 13:55:00 EDT, Tablet, [id number], Partial fill upon patient request if the [...] 17:45:00 EDT, Route to Pharmacy Electronically, [facility]/pharmacy #[id number], Partial fill upon patient request if [...] Refills, Maintenance, 11/07/22 7:55:00 EDT, Tablet, [facility]/pharmacy #[id number], Partial fill upon patient request if [...] arousal disorder, sleep terror type Confirmed Active Results Radiology Reports * Exam Date Time Procedure Performing Provider Status 09/10/23 8:35 PM Chest 2 Views Frontal and Lat Bhargav Soliz; Auth (Verified) Notes: (Chest 2 Views Frontal and Lat) Reason For Exam: Stroke;Other: RESULT: Chest 2 Views Frontal and Lat Chest 2 Views Frontal and Lat INDICATION LUE LLE numbness tingling and L eye blurry vision. LKW 2p. Pt also endoring MS to L anterior CP; Reason: Other:; Stroke; Clinical Question(s): CHF COMPARISON: 04/15/2016. FINDINGS: LINES AND TUBES: None. LUNGS AND PLEURA: Clear lungs. Normal pulmonary vascularity. No pleural effusion. No pneumothorax. HEART, MEDIASTINUM AND RAINA: Heart is normal in size. Normal mediastinal and hilar contour. BONES AND SOFT TISSUES: No acute abnormality. Surgical porfirio overlying the right upper quadrant of the abdomen, present on prior. IMPRESSION: No evidence of acute abnormality. I have personally reviewed the images and I agree with this report. WSN: [id number] Ordering Physician: Dinesh Goins Dictated By: Tam Segovia MD Dictated Date/Time: 09/10/23 9:01 pm Reviewed By: Antoni Loera MD Signed By: Antoni Loera MD Signed Date/Time: 09/10/23 9:06 pm Transcribed By: MARGOT Transcribed Date/Time: 09/10/23 8:41 pm * Exam Date Time Procedure Performing Provider Status 09/10/23 6:[address] Head-Hyper Acute Stroke Charissa Crooks hleigh; Auth (Verified) Notes: (CT Head-Hyper Acute Stroke) Reason For Exam: Neuro deficit, acute, stroke suspected;Other: RESULT: CT Head-Hyper Acute Stroke CT Head-Hyper Acute Stroke INDICATION: Reason: Other:; Neuro deficit, acute, stroke suspected; Clinical Question(s): Other:; Hematoma Infarction TECHNIQUE: Noncontrast head CT using axial technique and reconstructed in axial and coronal planes.Iterative reconstruction techniques are used to optimize dose and image quality. CTDIvol Head: 41.76 mGy, DLP Head: 1959 mGy*cm. COMPARISON: None. FINDINGS: Operations Lieutenant view findings, lines and tubes: None. BRAIN AND EXTRA-AXIAL SPACES: No parenchymal hemorrhage, midline shift, or mass effect. Ansari-white matter differentiation is wellpreserved. No acute infarct. Ventricles, sulci, and basilar cisterns are normal. No white matter lesions. No subarachnoid hemorrhage. No subdural or epidural collection. CALVARIUM, SKULL BASE, AND SOFT TISSUES: No fractures or suspicious bony lesions. There is mucoperiosteal thickening within the left maxillary sinus. Tiny air- fluid level. Visualized orbits and globes are intact. The extracranial soft tissues are unremarkable. IMPRESSION: No acute intracranial pathology. WSN: [id number] Ordering Physician: Dinesh Goins Dictated By: Mick Harvey MD Dictated Date/Time: 09/10/23 6:20 pm Reviewed By: Mick Harvey MD Signed By: Mick Harvey MD Signed Date/Time: 09/10/23 6:20 pm Transcribed By: MARGOT Transcribed Date/Time: 09/10/23 6:16 pm Vital Signs Most recent to oldest [Reference Range]: 1 2 3 Oxygen Saturation [94-100 %] 100 % (09/10/23 7:39 PM) 98 % (09/10/23 6:19 PM) 100 % (09/10/23 5:58 PM) Pulse Rate [55-90 bpm] 69 bpm (09/10/23 7:39 PM) 78 bpm (09/10/23 6:19 PM) 91 bpm *H* (09/10/23 5:58 PM) Blood Pressure [90-138/55-84 mm Hg] 125/68mm Hg (09/10/23 7:39 PM) 126/67mm Hg (09/10/23 6:19 PM) 177/80mm Hg *H* (09/10/23 5:58 PM) Respiratory Rate [16-30 br/min] 18 br/min (09/10/23 7:39 PM) 18 br/min (09/10/23 6:19 PM) Temperature [96.8-100.4 DegF] 98.2 DegF (09/10/23 7:39 PM) 98.6 DegF (09/10/23 5:58 PM) Mode of Delivery (Oxygen) Room air (09/10/23 7:39 PM) Room air (09/10/23 6:19 PM) Room air (09/10/23 5:58 PM) Temperature Route Oral (09/10/23 7:39 PM) Oral (09/10/23 5:58 PM) Social History Social History Type Response Smoking Status Never (less than 100 in lifetime) entered on: 07/22/22 Sex Female Consult note * Peña COLLAR TACKER, Melanie M: MODIFY, MODIFY, MODIFY, MODIFY, MODIFY, MODIFY, MODIFY, MODIFY, PERFORM, MODIFY,MODIFY Event Display: Consultation Note Authored Date: [id number] Patient: ??ALICIA HASSAN ? Age:??43 Years?Sex:??Female?:??1980?? Chief Complaint/Reason for Consultation Left sided sensory changes History of Present Illness Ms. Hassan is a 43-year-old female with PMH significant for anxiety, asthma, HTN, migraines, and obesity who presented through triage as an acute stroke for left- sided sensory changes. The patient reports she developed a headache, different than her typical migraine, around 2:00pm. She took a nap and woke up around 4:00pm with sensory changes to head, neck, and LUE, and LLE, described as numbness/tingling,??which has since continued??to head, neck, LUE, as well as new LUE??heaviness. LWK: 2:00pm. In the ED, BP: 177/80. POC: 93. CT head nonacute. CTA Head/Neck without LVO or high grade stenosis. Hypoplastic Right vertebral artery. Patient was OOW for TNK ,and deferred given low NIHSS. No LVO for NEV intervention. ? Objective Vital Signs?? Temperature: 98.6 DegF (09/10/23 17:58:00) Temperature Route: Oral (09/10/23 17:58:00) Pulse Rate:??91 bpm??High (09/10/23 17:58:00) Systolic Blood Pressure:??177 mm Hg??High (09/10/23 17:58:00) Diastolic Blood Pressure: 80 mm Hg (09/10/23 17:58:00) Oxygen Saturation: 100 % (09/10/23 17:58:00) Mode of Delivery (Oxygen): Room air (09/10/23 17:58:00) ? NIH Stroke Scale: ?? 1a. LOC (0-alert; 1-not alert, arousable; 2-not alert, obtunded; 3- nonresponsive): 0 1b. Questions (0-answers two correctly; 1-answers one correctly; 2-answers neither correctly): 0 1c. Commands (0-perform two tasks; 1-performs one task; 2-performs neither tasks): 0 2. Gaze (0-normal; 1-partial gaze palsy; 2-forced deviation): 0 3. Visual gustafson (0-no visual loss; 1-partial hemianopsia; 2-complete hemianopsia; 3-bilateral hemianopsia): 0 4. Facial palsy (0-normal; 1-minor palsy; 2-partial palsy; 3-complete paralysis): 0 5a. Motor left arm (0-normal; 1-drift before 10 sec; 2-falls before 10 sec; 3-no effort against gravity; 4-no movement): 0 5b. Motor right arm (0-normal; 1-drift before 10 sec; 2-falls before 10 sec; 3- no effort against gravity; 4-no movement): 0 6a. Motor left leg (0-normal; 1-drift before 5 sec; 2-falls before 5 sec; 3-no effort against gravity; 4-no movement): 0 6b. Motor right leg (0-normal; 1-drift before 5 sec; 2-falls before 5 sec; 3-no effort against gravity; 4-no movement): 0 7. Ataxia (0-absent; 1-one limb; 2-two limbs): 0 8. Sensory (0-absent; 1-mild/moderate; 2-severe/total loss): 1 9. Language (0-normal; 1-mild/moderate loss; 2-severe aphasia; 3-mute): 0 10. Dysarthria (0-normal; 1-mild/moderate; 2-severe): 0 11. Extinction (0-normal; 1-mild-one modality; 5-aczaca-vkp modality): 0 ? NIHSS Total:??1 ? [place] Coma Score: 15 (09/10/23 17:47:00) Motor Response-Adult: Obeys commands (09/10/23 17:47:00) Response Eye Opening: Spontaneously (09/10/23 17:47:00) Verbal Response-Adult: Oriented and converses (09/10/23 17:47:00) ? Physical Exam General: ??43-year-old female, who appears stated age. Alert and attentive. Responds appropriately to questioning. Speech clear Integ: Skin is warm, dry and intact. No diaphoresis.?? HEENT: Eyes symmetrical. Pupils 2mm, equally round, regular, and responsive to light. Extraocular eye movements intact. No nystagmus. Hearing grossly intact.?? Respiratory: Respirations even and unlabored. GI: Abd obese, nondistended Extremities: warm and perfused. Neurological: Mental status: A&O x3. Answers questions appropriately and follows commands. Cranial Nerves: II: Pupils 2mm equally round, regular and reactive to light III, IV, : EOM intact, no gaze preference or deviation. No nystagmus. VFF V: Facial sensation intact to light touch in V1, V2, and V3 segments. VII: Face symmetrical, no nasolabial fold flattening on activation VIII: Normal hearing to speech IX, X:??Normal palatal elevation, no uvular deviation.?? XI: Shoulder shrug intact bilaterally XII: Midline tongue protrusion Motor: Musculoskeletal development appropriate for age and gender. Moves extremities freely.?? Strength Binding Cutter Synthetic Cloth: L: 5/5 ? R: 5/5 Deltoids: L: 5/5 ? R:5/5 Biceps: ?? L: 5/5 ? R:5/5 Triceps: ?? L: 5/5 ? R:5/5 Knee extension: L: 5/5 ? R: 5/5 Sensory: Sensation intact to light touch in all limbs.; subjective sensory changes to Head, Left neck, and LUE.??No hemineglect, no extinction to double sided stimulation Coordination: Finger to nose without dysmetria Gait: Deferred. ?? Assessment/Plan 43-year-old female with PMH significant for anxiety, asthma, HTN, migraines, obesity, perimenopausal (on hormone replacement therapy)??who presented through triage as an acute stroke??for left-sided sensory changes. The patient reports she developed a headache, different than her typical migraine, around 2:00pm. She took a nap and woke up around 4:00pm with sensory changes to head, neck, and LUE,and LLE, described as numbness/tingling,??which has since continued??to head, neck, LUE, as well asnew LUE??heaviness. Headache had resolved. LWK: 2:00pm. In the ED, BP: 177/80. POC: 93. NIHSS: 1. CT head nonacute. CTA Head/Neck without LVO or high grade stenosis. Hypoplastic Right vertebral artery . Patient was OOW for TNK ,and deferred given low NIHSS. No LVO for NEV intervention. ? DDx: Left sided sensory changes following headache - ?atypical migraine vs other. Lower suspicion for acute stroke given low NIHSS. ? Recommendations: - NPO until swallow function cleared - Initiate ASA for now (rectally until swallow cleared) - Check lipid panel and A1C - Trial migraine cocktail - If no improvement, may consider MRI Brain ?? - q4hr neuro checks, VS, and telemetry monitoring - STAT CT head for any acute changes - DVT prophylaxis - Follow up on final CT/CTA read - Control of outpatient vascular risks: A1C <7.0. Statin therapy for LDL >70 or >100 with only one vascular risk. snf BP control. Healthy lifestyle modifications ? Thank you. Neurology will follow. Please call with any questions/concerns ?? d/w Dr. Nu Smith d/w Dinesh Vaughn Histories Past Medical History/Problem List Active Problems(11) Anxiety Asthma Contraception Dense breast tissue on mammogram Depression Family history of breast cancer Medical examinations/reports status Migraines Non-rapid eye movement sleep arousal disorder, sleep terror type Perimenopause Severe obesity ? Past Surgical History Endoscopy: 2020 cholecystectomy, laparoscopic: 2009 ? Social History Alcohol Details:??Use: Never. Employment/School Details:??Status: Employed. 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 Exercise Details:??Self assessment: Fair condition. ??Regular exercise: No. Home/Environment Details:??Living situation: Home/Independent. ??Lives with: Children, Spouse, 2 cats. ??Other: from her for over a year. Denies IPV. ??Feels unsafe at home: No. Nutrition/Health Details:??Caffeine intake amount: 1-2 cups daily. Sexual Details:??Sexually involved in last 6 months: Yes. ??Gender identity: Identifies as female. ??Self described orientation: Straight or heterosexual. ??Ever been sexually involved? Yes. ??Gender of partner(s): Male. Substance Abuse Details:??Use: Never. Tobacco Details:??Use: Never (less than 100 in lifetime). Electronic Cigarette/Vaping Details:??Electronic Cigarette Use: Never. ? Medications Home Medications Albuterol (albuterol 0.083% inhalation solution)?3?Milliliter?2.5?Milligram?Inhalation?Every 6 hours Alprazolam (Xanax 0.5 mg oral tablet)?0.5?Milligram?1?tablet?By Mouth?3 times a day?1mg tablet Aripiprazole (Abilify Tablet)?Daily Estradiol (estradiol 1 mg oral tablet)?1?Milligram?1?tablet?By Mouth?Daily Estradiol-Norethindrone (Activella oral tablet)?1?tab(s)?By Mouth?Daily Estradiol-Norethindrone (Mimvey 1 mg-0.5 mg oral tablet)?1?tab(s)?By Mouth?Daily Gabapentin (gabapentin 100 mg oral capsule)?See Instructions?1 to 3 capsule capsules ??at night Lisinopril (lisinopril 5 mg oral tablet)?5?Milligram?1?tablet?By Mouth?Daily Magnesium Oxide?By Mouth rimegepant (Nurtec ODT 75 mg oral tablet, disintegrating)?1?tab(s)?75?Milligram?By Mouth?Every 24 hours?as needed?as needed for migraine headache?not to exceed 75 mg in 24 hours Rizatriptan (Maxalt 10 mg oral tablet)?1?tab(s)?10?Milligram?By Mouth?Daily ? Results Recent Labs CHEM GENERAL Glucose, POC 93 mg/dL ()?? 09/10/2023 17:53 ? Abnormal Labs No lab data available. ? * Bita Miller MD: PERFORM Event Display: Consultation Note Authored Date: Attending Attestation:??I have discussed the case and its management with the advanced practitionerand agree with the findings and plan as documented in the advanced practitioner???s note. ?? Bita Smith M.D Attending-Vascular Neurology Department of Neurosciences Note * Buster BORJA, Dinesh W: PERFORM Event Display: Patient Education Leaflets Authored Date: [id number] Migraine Headache ?? [id number] Migraine Headache A migraine headache is an often severe type of headache. It's different from other types of headaches in that symptoms other than pain occur with it. For instance, a classic migraine headache means visual symptoms (or aura) such as flashes of light, blind spots, or other vision changes, warn you a headache is coming on. Nausea and vomiting, lightheadedness, sensitivity to light or sound, and other visual disturbances are common migraine symptoms.??The pain may last from a few hours to several days. It's not clear why migraines occur, but certain factors called triggers can raise the risk of having a migraine attack.??A migraine may be triggered by emotional stress??or depression, or by hormone changes during the menstrual cycle. Other triggers include certain control pills, overuse of migraine medicines, alcohol or caffeine, and foods with tyramine, such as aged cheese and wine. Eyestrain, weather changes, missed meals,??or too little or too much sleep can also trigger a migraine. Home care Follow these tips when taking care of yourself at home: ??? Don???t drive yourself home if you weregiven pain medicine for your headache or are having visual symptoms. Instead, have someone else drive you home. Try to sleep when you get home. You should feel much better when you wake up. ??? Cold can help ease migraine symptoms. Put an ice pack wrapped in a thin towel on your forehead or at the base of your skull. Put heat on the back of your neck to help ease any neck spasm. ??? Drink only clear liquids or eat a light diet until your symptoms get better. This will help you prevent nausea and vomiting. ?? How to prevent migraines Pay attention to what seems to trigger your headache. Try to stay away from the triggers when you can. If you have headaches often, consider keeping a headache diary. In it, write down what you were doing, feeling, or eating in the hours before each headache. Show this to your healthcare provider to help find the cause of your headaches. If stress seems to be a trigger for your headaches, figure out what is causing stress in your life.Learn new ways to handle your stress. Ideas include regular exercise, biofeedback, self-hypnosis, yoga, and meditation. Talk with your provider to find out more information about managing stress. Many books and digital media are also available on this subject. Tyramine is a substance found in many foods. It can trigger a migraine in some people. These foods contain tyramine: ??? Chocolate ??? Yogurt ??? All cheeses, but especially aged cheeses ??? Smoked or pickled fish and meat, including graham, caviar, bologna, pepperoni, and salami ??? Liver ??? Avocados ??? Bananas??? Figs ??? Raisins ??? Red wine Try staying away from these foods for 1 to 2 months to see if you have fewer headaches. ?? How to treat future headaches ??? Take time out at the first sign of a headache, if possible. Find a quiet, dark, comfortable place to sit or lie down. Let yourself relax or sleep. ??? Put an ice pack wrapped in a thin towel on your forehead or on the area of greatest pain. A heating pad and massage may help if you are having a muscle spasm and tightness in your neck. ??? If you have been prescribed a medicine to stop a migraine headache, use this at the first warning sign of the headache for best results. First signs may be an aura or pain. ??? If you have been prescribed a medicine to prevent the headaches, it's important to take the medicine as directed. Many of these medicines may take a few weeks to start preventing headaches, so it's important to not give up on them right away. If you continue to have just as many headaches after taking these medicines for a while, talk with your healthcare provider to see if the dose needs to be changed or if a different medicine is advised. ??? If you need to take medicine often for your migraine, talk with your provider about other ways to prevent your headaches. ?? Follow-up care Follow up with your healthcare provider, or as advised. Talk with your provider if you have frequent headaches. They can figure out a treatment plan. Ask if you can have medicine to take at home the next time you get a bad headache. This may keep you from having to visit the emergency department inthe future. You may need to see a headache specialist (neurologist) if you continue to have headache s. ?? When to get medical care Call your healthcare provider right away??if any of these occur: ??? Your head pain gets worse, or doesn???t get better within 24 hours ??? You can???t keep liquids down (repeated vomiting) ??? Pain in your sinuses, ears, or throat ??? Fever of 100.4?? F (38?? C) or higher, or as advised by your provider ??? Stiff neck ??? Extreme drowsiness, confusion, or fainting ??? Dizziness, or dizziness with spinning sensation (vertigo) ??? Weakness or trouble feeling in an arm or leg, or on one side of your face ??? Trouble talking or seeing ?? Last Reviewed Date: 2021 ?? 9034-7646 [employer]. All rights reserved. This information is not intended as a substitute for professional medical care. Always follow your healthcare professional's instructions. ?? Patient Care team information Care Team Personnel Name: Yoli Nolen MD Position: [facility] Outreach Member Role: PCP Address: Address: [address] [place] [address]- Name: Farzana Castro Position: [facility] Outreach Member Role: Lifetime Consulting Physician Care Team Related Persons Name: SAMRA HASSAN Address: home [address] [place] [address] Name: DUY CHAVEZ Address: home [address] [place] [address]
--- OUTSIDE RECORDS SUMMARY | 2023-10-10 05:59 | XMS_ITS | Continuity of Care Document ---
Author Organization [facility] Address [address] [place] [address], [address] [place] [address]- Care Team Providers Care Cylinder Inspector Name Role Phone Yoli Nolen MD Primary Care Physician [phone] Encounter [facility] Date(s): 11/04/22 - 12/04/22 [facility] [address] [facility], 4th [address] [place] [id number] Allergies, Adverse Reactions, Alerts Substance Reaction Severity Status Climara Pro itching redness Active Medications Abilify Tablet Daily, Maintenance, 05/10/14 14:52:19 Start Date: 05/10/14 Status: Ordered Activella oral tablet 1 tablet, By Mouth, Daily, # 28 tablet, 11 Refills, Maintenance, 11/06/21 13:55:00 EDT, Tablet, [facility]/pharmacy #[id number], Partial fill upon patient request if the [...] 08/19/22 17:45:00 EDT, Route to Pharmacy Electronically, [facility]/pharmacy #[id number], Partial fill upon patient request if [...] 4 Refills, Maintenance, 11/07/22 7:55:00 EDT, Tablet, [facility]/pharmacy #[id number], Partial fill upon patient request if [...] Team Personnel Name: Yoli Nolen MD Position: [facility] Outreach Member Role: PCP Address: Address: [address] [place] [address]- Name: Farzana Castro Position: S Outreach Member Role: Lifetime Consulting Physician Care Team Related Persons Name: SAMRA HASSAN Address: home [address] [place] [address] Name: DUY CHAVEZ Address: home [address] [place] [address]
--- OUTSIDE RECORDS SUMMARY | 2023-10-10 05:59 | XMS_ITS | Continuity of Care Document ---
Author Organization [facility] Address [address] [facility], 4t [place] [address]- Care Team Providers Care Cutting Torch Operator Name Role Phone Yoli Nolen MD Primary Care Physician [phone] Encounter [facility] [id number] Date(s): 07/30/23 - 08/29/23 [facility] [address], [address] [place] [address]- Attending Physician: Mendoza Tariq Admitting Physician: Mendoza Tariq Referring Physician: AdmMendoza knowles Referring Physician: Susan Kwong [place] Allergies, Adverse Reactions, Alerts Substance Reaction Severity Status Climara Pro itching redness Active Medications Abilify Tablet Daily, Maintenance, 05/10/14 14:52:19 Start Date: 05/10/14 Status: Ordered Activella oral tablet 1 tablet, By Mouth, Daily, # 28 tablet, 11 Refills, Maintenance, 11/06/21 13:55:00 EDT, Tablet, [facility]/pharmacy #[id number], Partial fill upon patient request if the [...] 08/19/22 17:45:00 EDT, Route to Pharmacy Electronically, [facility]/pharmacy #[id number], Partial fill upon patient request [...] 4 Refills, Maintenance, 11/07/22 7:55:00 EDT, Tablet, [facility]/pharmacy #[id number], Partial fill upon patient request [...] in lifetime) entered on: 07/22/22 Sex Female Patient Care team information Care Team Personnel Name: Yoli Nolen MD Position: [facility] Outreach Member Role: PCP Address: Address: [address] [place] [address]- Name: Farzana Castro Position: [facility] Outreach Member Role: Lifetime Consulting Physician Care Team Related Persons Name: SAMRA HASSAN Address: home [address] [place] [address] Name: DUY CHAVEZ Address: home [address] [place] [address]
--- OUTSIDE RECORDS SUMMARY | 2023-10-10 06:00 | XMS_ITS | Continuity of Care Document ---
Author Organization [facility] Address [address] [place] [address], [address] [place] [address]- Care Team Providers Care Inspector Precision Name Role Phone Yoli Nolen MD Primary Care Physician [phone] [id number] [address], [address] [place], [place] [address] Allergies, Adverse Reactions, Alerts Substance Reaction Severity Status Climara Pro itching redness Active Medications Abilify Tablet Daily, Maintenance, 05/10/14 14:52:19 Start Date: 05/10/14 Status: Ordered Activella oral tablet 1 tablet, By Mouth, Daily, # 28 tablet, 11 Refills, Maintenance, 11/06/21 13:55:00 EDT, Tablet, [facility]/pharmacy #[id number], Partial fill upon patient request if the [...] 17:45:00 EDT, Route to Pharmacy Electronically, [facility]/pharmacy #[id number], Partial fill upon patient [...] 4 Refills, Maintenance, 11/07/22 7:55:00 EDT, Tablet, [facility]/pharmacy #[id number], Partial fill upon patient [...] Team Personnel Name: Yoli Nolen MD Position: [facility] Outreach Member Role: PCP Address: Address: [address] [place] [address]- Name: Farzana Castro Position: [facility] Outreach Member Role: Lifetime Consulting Physician Care Team Related Persons Name: SAMRA HASSAN Address: home [address] [place] [address] Name: DUY CHAVEZ Address: home [address] [place] [address]
--- OUTSIDE RECORDS SUMMARY | 2023-10-10 06:00 | XMS_ITS | Continuity of Care Document ---
Author Organization [facility] Address [address] [facility] [place] [address]- Care Team Providers Care Finisher Denture Name Role Phone Yoli Nolen MD Primary Care Physician Encounter [facility] Date(s): 02/26/23 - 03/28/23 [facility] [address] [facility] [place] [address]- Allergies, Adverse Reactions, Alerts Substance Reaction Severity Status Climara Pro itching redness Active Medications Abilify Tablet Daily, Maintenance, 05/10/14 14:52:19 Start Date: 05/10/14 Status: Ordered Activella oral tablet 1 tablet, By Mouth, Daily, # 28 tablet, 11 Refills, Maintenance, 11/06/21 13:55:00 EDT, Tablet, [facility]/pharmacy #[id number], Partial fill upon patient request [...] 17:45:00 EDT, Route to Pharmacy Electronically, [facility]/pharmacy #[id number], Partial fill upon patient request [...] Refills, Maintenance, 11/07/22 7:55:00 EDT, Tablet, [facility]/pharmacy #[id number], Partial fill upon patient request [...] Team Personnel Name: Yoli Nolen MD Position: [facility] Outreach Member Role: PCP Address: Address: [address] [place] [address]- Name: Farzana Castro Position: [facility] Outreach Member Role: Lifetime Consulting Physician Care Team Related Persons Name: SAMRA HASSAN Address: home [address] [place] [address] Name: DUY CHAVEZ Address: home [address] [place] [address]
[2023-10-10 06:40] LABS: Urine Pregnancy NEGATIVE (NEGATIVE)
[2023-10-10 06:41] LABS: UPreg QC Valid YES
[2023-10-10] MEDS: Lactated Ringers 1,000 ML 100 ML IVCONT (06:55)
[2023-10-10] MEDS: Scopolamine 1.5 MG PATCH.TD.3 EAR-BEHIND (07:11)
--- NOTE | 2023-10-10 07:54 | HO.ANESPROP2 ---
[facility] Active Problems Active Problems: All Active Problems Tear of medial meniscus of left knee (Acute) Left knee pain (Acute) Environmental allergies (Acute) Dyspnea (Acute) JONO (obstructive sleep apnea) (Acute) Daytime sleepiness (Acute) Snoring (Acute) Sleep difficulties (Acute) Periodic limb movement sleep disorder (Acute) Obesity (Acute) Cancer phobia (Acute) Change in bowel habit (Acute) Weight gain (Acute) Schatzki's ring (Acute) Globus hystericus (Acute) Chronic GERD (Acute) Asthma (Acute) Hemorrhoids (Acute) Anxiety (Acute) Migraine (Acute) Past Medical History Medical History GERD (gastroesophageal reflux disease) Sleep apnea Asthma Hypertension Hemorrhoids Depression Anxiety Migraine Functional capacity: independent ambulation Patient : No Family History Family History Mother Breast CA Diabetes Hypertension Depression Anxiety Father Hypertension Family history of problems with anesthesia: No Surgical History Surgical History H/O colonoscopy History of esophagogastroduodenoscopy (EGD) Hx of cholecystectomy History of Problems with Anesthesia: No Social History Social History Household Members: Children Alcohol intake: current Alcohol intake frequency: does not drink Patient Tobacco Use Status: Never used Tobacco Advance Directives Information Provided: Yes Advance Directives on File: No 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 Allergy/AdvReac Type Severity Reaction Status Date / Time No Known Allergies Allergy Verified 10/07/23 15:32 Active Medications: Current Medications Albuterol Sulfate (Albuterol Sulfate (0.083%) 2.5 Mg/3 Ml Vial.Neb) 2.5 mg INHALE ONCE PRN PRN Reason: Shortness of Breath/Wheezing Lactated Ringer's (Lr) 1,000 mls @ 100 mls/hr IVCONT .Q10H STACEY Last Admin: 10/10/23 06:55 Dose: 100 mls/hr Home Medications ?Medication ?Instructions ?Recorded ?Confirmed ?Last Taken ?Type estradiol-norethindrone acet 1 1 tab PO DAILY 03/19/22 10/10/23 Unknown History mg-0.5 mg tablet (Mimvey) albuterol sulfate 90 mcg/actuation 1 inh inhalation Q4H PRN Shortness 07/02/22 10/10/23 Unknown History aerosol inhaler Of Breath Or Wheezing alprazolam 0.25 mg tablet 0.25 mg PO DAILY PRN Anxiety 07/02/22 10/10/23 Unknown History bupropion HCl 150 mg 24 hr tablet, 150 mg PO QAM 06/11/23 10/10/23 Unknown History extended release (Wellbutrin XL) bupropion HCl 300 mg 24 hr tablet, 300 mg PO QAM 06/11/23 10/10/23 Unknown History extended release (Wellbutrin XL) cholecalciferol (vitamin D3) 25 25 mcg PO DAILY 08/20/23 10/10/23 Unknown History mcg (1,000 unit) capsule cyanocobalamin (vitamin B-12) 3,000 mcg PO DAILY 08/20/23 10/10/23 Unknown History 3,000 mcg capsule losartan 25 mg tablet 50 mg PO DAILY 08/20/23 10/10/23 Unknown History hydrochlorothiazide 25 mg tablet 25 mg PO DAILY 10/10/23 10/10/23 Unknown History Exam Height,Weight and Vital Signs: Height 5 ft 7 in Weight 118.841 kg Last Vital Signs Temp 98.3 F 10/10/23 06:40 Pulse 72 10/10/23 06:40 Resp 16 10/10/23 06:40 BP 129/69 10/10/23 06:40 Pulse Ox 97 10/10/23 06:40 O2 Del Method Room Air 10/10/23 06:40 Pertinent Lab Results Pertinent Lab Results: Laboratory Tests 10/10/23 06:12 Urine Test NEGATIVE Airway Mallampati Class: II TM Dist: >3cm Neck ROM: Full Heart: RRR Lungs: CTA Assessment and Plan Assessment Anesthesia Assessment: Anesthesia Plan Discussed Final Anesthetic Review Family History of Problems with Anesthesia: No History of Problems with Anesthesia: No NPO: Yes ASA Class: III Final Preanesthetic Review: Meds/Allgs Chart Reviewed, Consent Obtained/Reviewed and Anes Risks/Benef Reviewed Patient Risk: Intermediate Procedure Risk: Low Anesthetic Plan Anesthetic Plan: GA Disposition: Standard PACU
--- NOTE | 2023-10-10 08:38 | P.OP_ITS ---
Operative Note Operative Note Date of Service: 10/10/23 Narrative: After the patient was identified as Jeanine Chau and her left knee was initialed by myself they were brought to the operating room where general anesthesia was induced by the anesthesiologist in routine fashion. The patient was given 2 g of IV Ancef preoperatively for infection prophylaxis. The patient's left lower extremity was prepped and draped in sterile fashion. A formal time-out was completed. Marcaine was injected into the planned incision sites as well as the patient's left knee joint. A #11 scalpel blade was used to make an anterolateral portal 1 cm proximal to the joint line and 1 cm lateral to the p atellar tendon. Blunt trocar technique was used to enter the suprapatellar pouch with the knee in extension. Diagnostic arthroscopy showed multiple bands of thickened plica which would be excised at the end of the procedure. There were no loose bodies or abnormalities found in either the medial or lateral gutters. The articular surface of the patella and the trochlear groove showed no significant degenerative changes. The patient's knee was flexed to 45 degrees and a valgus force was placed upon it. The medial compartment was entered. An anteromedial portal was made 1 cm proximal to the joint line and 1 cm medial to the patellar tendon. Probing of the medial meniscus showed a radial tear of the anterior horn. A partial medial meniscectomy was performed using the arthroscopic shaver. Following the partial meniscectomy the remainder of the meniscus tissue was stable. There were diffuse grades 3 and 4 degenerative changes of the medial femoral condyle as well as grades 3 and 4 degenerative changes of the medial tibial plateau. The articular surfaces of the medial femoral condyle and medial tibial plateau were then made smooth using the arthroscopic shaver. The patient's knee was placed into a neutral position. There was no injury to the anterior cruciate ligament. The patient's knee was then placed in the figure of 4 position and the lateral compartment was entered. There was no evidence of lateral meniscus tearing. There were minimal degenerative changes of the lateral femoral condyle and lateral tibial plateau. The patient's knee was once again brought into extension and the suprapatellar pouch was entered. The arthroscopic shaver and the ArthroCare Wand were used to excise the thickened bands of plica. The knee joint was irrigated and then drained. All arthroscopic instruments were removed. The 2 portals were closed with 3-0 nylon interrupted suture. The knee joint was injected with Marcaine. Dry sterile dressing and Jf bandages were placed over the patient's knee. The patient was awoken and extubated in the operating room. The patient was transferred to the recovery room in stable condition.
--- NOTE | 2023-10-10 08:38 | PM.OP ---
Brief Operative Note Date of Service: 10/10/23 Pre-op diagnosis: Left knee medial meniscus tear, left knee degenerative joint disease Post-op diagnosis: same Procedure: Left knee diagnostic arthroscopy with left knee arthroscopic partial medial meniscectomy, left knee arthroscopic chondroplasty of the medial tibial plateau and medial femoral condyle Implants: None Surgeon: Filipe Mcdowell MD Anesthesia: GLMA Was an Developmental Therapist used for this Procedure?: No Estimated blood loss (mL): 10 Pathology: none sent Condition: stable Disposition: PACU
[2023-10-10] MEDS: cefTRIAXone sodium 1 GM in 0.9 % Sodium Chloride 50 ML IV (08:54)
--- NOTE | 2023-10-10 09:41 | PC.NURSE ---
24hr update documented on paper
[2023-10-10] MEDS: ondansetron HCL 4 MG/2 ML VIAL IVPUSH (09:44)
--- NOTE | 2023-10-10 11:14 | HO.POSTANES ---
Post Anesthesia Evaluation Post Anesthesia Evaluation Date of Service: 10/10/23 Vital Signs: Vital Signs Temp Pulse Resp BP Pulse Ox O2 Del Method 10/10/23 09:25 74 16 123/61 93 Room Air 10/10/23 09:05 82 16 120/66 95 Room Air 10/10/23 08:50 75 16 127/68 95 Room Air 10/10/23 08:45 80 16 128/70 96 Room Air 10/10/23 08:40 83 16 137/76 96 Room Air 10/10/23 08:35 97 F 89 16 130/73 95 Room Air 10/10/23 06:40 98.3 F 72 16 129/69 97 Room Air Anesthesia: General LMA Mental Status: Awake Pain Control: Satisfactory Nausea/Vomiting: None Hydration: Adequate Anesthesia-Related Issues: No Anes. Related Issues
== END 2023-10-10 10:33 | disposition home or self-care (01) ==
PROVIDERS: Nurse Practitioner; PCP Pediatrics; Visit Provider Orthopaedic Surgery
PROC: (CPT 29870; principal; 2023-10-10 07:30)
DX: S83.242A Other tear of medial meniscus, current injury, left knee, initial encounter (principal); W19.XXXA Unspecified fall, initial encounter; Y93.9 Activity, unspecified; Y92.9 Unspecified place or not applicable; Y99.8 Other external cause status; M67.52 Plica syndrome, left knee; M17.12 Unilateral primary osteoarthritis, left knee; G47.33 Obstructive sleep apnea (adult) (pediatric); I10 Essential (primary) hypertension; J45.909 Unspecified asthma, uncomplicated; F32.A Depression, unspecified; Z79.51 Long term (current) use of inhaled steroids; Z79.899 Other long term (current) drug therapy
CPT/HCPCS: 29881; 81025; J0131; J0171; J0690; J0696; J1596; J2250; J2405; J2795; J3010

== ENCOUNTER → 2023-10-10 05:56 | Outpatient (BNV) | payer OTHER, SELFPAY | PROVIDERS: PCP Pediatrics; Visit Provider Orthopaedic Surgery | DX: S83.242A Other tear of medial meniscus, current injury, left knee, initial encounter (principal) | CPT/HCPCS: 29881 ==

== ENCOUNTER 2023-10-23 13:55 | Outpatient (AMB) | payer OTHER, SELFPAY ==
--- NOTE | 2023-10-23 14:01 | MHC.OFFVIS ---
Intake Visit Reasons: PO LT Knee 10/10/23 Intake Note: Jeanine a 43 year old female who presents today for a post operative left knee on 10/10/23 Patient reports she is doing well, states having some stiffness with walking. Allergies No Known Allergies Allergy (Verified 10/23/23 14:03) Medication List - Last Reconciled 10/23/23 by Go Cerna PA-C albuterol sulfate 90 mcg/actuation 1 inh inhalation Q4H PRN alprazolam 0.25 mg PO DAILY PRN bupropion HCl XL (Wellbutrin XL) 300 mg PO QAM bupropion HCl XL (Wellbutrin XL) 150 mg PO QAM cholecalciferol (vitamin D3) 25 mcg PO DAILY cyanocobalamin (vitamin B-12) 3,000 mcg PO DAILY estradiol-norethindrone acet 1-0.5 mg (Mimvey) 1 tab PO DAILY fluticasone furoate-vilanterol 100-25 mcg/dose (Breo Ellipta) 1 inh inhalation DAILY galcanezumab-gnlm (Emgality Pen) 120 mg subcut ONCE 30 days hydrochlorothiazide 25 mg PO DAILY losartan 50 mg PO DAILY meloxicam 15 mg PO DAILY PRN 3 months rimegepant (Nurtec ODT) 75 mg orally daily PRN; 32 days HPI HPI PO LT Knee 10/10/23 DR: Details: 43-year-old female who returns to the office today for post-op left knee , 10/10/[address] Mcdowell. She states she has some difficulty walking as well as catching and knee giving out since surgery. She has no other concerns today. 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 No redness or drainage. ROM is 0-90 degrees. Calf supple, nontender. NVI. Results Reviewed Results Reviewed: Brief Operative Note Date of Service: 10/10/23 Pre-op diagnosis: Left knee medial meniscus tear, left knee degenerative joint disease Post-op diagnosis: same Procedure: Left knee diagnostic arthroscopy with left knee arthroscopic partial medial meniscectomy, left knee arthroscopic chondroplasty of the medial tibial plateau and medial femoral condyle Implants: None Surgeon: Filipe Mcdowell MD Assessment & Plan Assessment & Plan (1) Tear of medial meniscus of left knee: Code(s): S83.242A - Other tear of medial meniscus, current injury, left knee, initial encounter Category: Medical Plan Sutures removed today, steri strips applied. She given an order for physical therapy to work on ROM, gentle strengthening and conditioning. She will increase activities as tolerated. She mentioned about leaving for the weekend to [place] and I stressed the importance of getting out of her car to stretch out and perform ankle pumps. I also recommend she take ASA 81mg tabs po bid which prevent blood clots while traveling. I would like to see her back in [address] Mcdowell, sooner if needed. Orders: Orders PT Evaluation and Treatment Today S83.242A - Other tear of medial meniscus, current injury, left knee, initial encounter Patient Instructions: Scribed for Go Cerna PA-C, by Chadwick Guy medical administrator, on 10/23/2023 at 2:00 PM EST.? I, Go Cerna PA-C, have personally reviewed and agree with the information entered by the scribe. Coding Level of Care Code Global (07600) Diagnoses Tear of medial meniscus of left knee S83.242A
== END 2023-10-23 14:26 | disposition home or self-care (01) ==
PROVIDERS: PCP Student in an Organized Health Care Education/Training Program; Visit Provider Physician Assistant
DX: S83.242A Other tear of medial meniscus, current injury, left knee, initial encounter (principal)
CPT/HCPCS: 99024

== ENCOUNTER → 2023-10-23 13:55 | Outpatient (BNVA) | payer OTHER, SELFPAY | PROVIDERS: PCP Student in an Organized Health Care Education/Training Program; Visit Provider Physician Assistant ==

== ENCOUNTER 2023-11-25 08:12 | Outpatient (AMB) | payer OTHER, SELFPAY ==
--- NOTE | 2023-11-25 08:13 | A.OFFVIS_ITS ---
Vital Signs 11/25/23 08:16 Height 5 ft 7 in Weight 260 lb BMI 40.7 Intake Visit Reasons: PO LT Knee 10/10/23 Intake Note: Jeanine a 43 year old female who presents today for a post operative left knee on 10/10/23 The patient reports mild to moderate intermittent discomfort in her left knee. She notices the discomfort most when she is up going up and down stairs. She denies any fevers or chills. She does take ibuprofen which sometimes upsets her stomach. She also has meloxicam which she states can affect her blood pressure. Allergies No Known Allergies Allergy (Verified 11/25/23 08:18) Medication List - Last Reconciled 11/25/23 by Filipe Mcdowell MD albuterol sulfate 90 mcg/actuation 1 inh inhalation Q4H PRN alprazolam 0.25 mg PO DAILY PRN bupropion HCl XL (Wellbutrin XL) 300 mg PO QAM bupropion HCl XL (Wellbutrin XL) 150 mg PO QAM cholecalciferol (vitamin D3) 25 mcg PO DAILY cyanocobalamin (vitamin B-12) 3,000 mcg PO DAILY estradiol-norethindrone acet 1-0.5 mg (Mimvey) 1 tab PO DAILY fluticasone furoate-vilanterol 100-25 mcg/dose (Breo Ellipta) 1 inh inhalation DAILY galcanezumab-gnlm (Emgality Pen) 120 mg subcut ONCE 30 days hydrochlorothiazide 25 mg PO DAILY losartan 50 mg PO DAILY meloxicam 15 mg PO DAILY PRN 3 months rimegepant (Nurtec ODT) 75 mg orally daily PRN; 32 days PFSH Medical History GERD (gastroesophageal reflux disease) Sleep apnea Asthma Hypertension Hemorrhoids Depression Anxiety Migraine Surgical History H/O colonoscopy History of esophagogastroduodenoscopy (EGD) Hx of cholecystectomy Family History Mother Breast CA Diabetes Hypertension Depression Anxiety Father Hypertension Social History Household Members: Children Alcohol intake: current Alcohol intake frequency: does not drink Patient Tobacco Use Status: Never used 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 Chau continues to do fairly well after undergoing left knee arthroscopic surgery on 10/10/2023. She will continue with her activity modifications. She does have residual discomfort due to degenerative joint disease. We will hold off on a cortisone injection at this time. She will continue taking ibuprofen or meloxicam as needed for discomfort. She will contact me prior to her follow- up appointment in 2 months should any questions or concerns arise. Feel free to call me at any time should questions regarding her orthopedic management arise. Coding Level of Care Code Global (49404) Diagnoses Left knee pain M25.562
[2023-11-25 08:16] VITALS: BMI 40.7
== END 2023-11-25 08:25 | disposition home or self-care (01) ==
PROVIDERS: PCP Student in an Organized Health Care Education/Training Program; Visit Provider Orthopaedic Surgery
DX: M25.562 Pain in left knee (principal)
CPT/HCPCS: 99024

== ENCOUNTER → 2023-11-25 08:12 | Outpatient (BNVA) | payer OTHER, SELFPAY | PROVIDERS: PCP Student in an Organized Health Care Education/Training Program; Visit Provider Orthopaedic Surgery ==

== ENCOUNTER 2023-12-31 07:00 | Outpatient (RCR) | payer OTHER, SELFPAY ==
--- NOTE | 2023-11-27 08:05 | MHC.PT.EP ---
[facility] [place] [facility] [place] [facility] [address] Emani Linares [address] [phone] F: [phone] F: [phone] F: [phone] F: [phone] Physical Therapy Plan of Care Date of Evaluation: 11/27/23 Date of Surgery: Diagnosis: tear of medial meniscus - L Assessment: Patient is a 43 year old R handed female who presents with s/s consistent with L knee pain - L knee meniscectomy. 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 Patient past medical history includes HTN, obesity, migraines. Current impairments include pain, posture, balance, flexibility, ROM, strength, activity tolerance and functional mobility. Functional limitations include decreased ability to stand, walk, teach, negotiate stairs, transfer, and sleep. Patient is motivated with good rehab potential. Skilled PT will address impairments and functional limitations in order to achieve goals. Frequency and Duration: The patient will be seen 2x/week for 5 weeks Short Term Goals: I with HEP - 2 weeks AROM 0-124 - 3 weeks Symmetrical pain free gait - 3 weeks Max pain at end of school day - /10 - 3 weeks SLR without lag - 3 weeks Business Taxes Specialist Goals: LEFS 48/80 - 5 weeks Max pain at end of school day /10 - 5 weeks AROM 0-129 - 5 weeks Strength 4+/5 - 5 weeks Treatment Plan: Modalities to reduce pain, spasms and effusion. Manual therapy to restore motion and function. Therapeutic exercise to improve strength and flexibility. Neuromuscular re-education for posture and balance. Therapeutic activities to return to functional activities of daily living. Electronically signed by: Moncho Hidalgo, PT Please sign and return to therapist. Thank you for your referral.
--- NOTE | 2024-06-04 12:32 | MHC.PT.DC ---
[facility] [place] Office [place] Office [place] Office [address] Emani Linares [address] [phone] F: [phone] F: [phone] F: [phone] F: [phone] Physical Therapy Discharge Report Diagnosis: tear of medial meniscus - L Date of Surgery: Date of Evaluation: 11/27/23 Date of Discharge: 02/05/24 Treatments to Date: 4 Cancellations to Date: No Shows to Date: Discharge Status: Independent with HEP Patient Elected to Stop Discharge Summary: 12/31/23: pt ntoes having 2 weeks of R knee pain impacting function, HEP and ability to progress today. we educated on management of this and will assess ability to progress NV. 12/17/23: pt responding well. notes impoved gait and stair negotiation. we will add stair/balance intervention NV. 12/12/23: pt progressing well with skilled PT. no adverse reactions. continue to progress as tolerated. CP to nikki. Patient is a 43 year old R handed female who presents with s/s consistent with L knee pain - L knee meniscectomy. 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 Patient past medical history includes HTN, obesity, migraines. Current impairments include pain, posture, balance, flexibility, ROM, strength, activity tolerance and functional mobility. Functional limitations include decreased ability to stand, walk, teach, negotiate stairs, transfer, and sleep. Patient is motivated with good rehab potential. Skilled PT will address impairments and functional limitations in order to achieve goals. Electronically signed by: Moncho Hidalgo, PT Please sign and return to therapist. Thank you for your referral.
== END 2024-06-04 12:32 | disposition home or self-care (01) ==
LOC: HO.PTCHIC 07:00
PROVIDERS: PCP Student in an Organized Health Care Education/Training Program; Visit Provider Physician Assistant
DX: S83.242D Other tear of medial meniscus, current injury, left knee, subsequent encounter (principal)
CPT/HCPCS: 97110; 97162

== ENCOUNTER → 2024-01-07 14:40 | Outpatient (BNVA) | payer OTHER, SELFPAY | PROVIDERS: PCP Student in an Organized Health Care Education/Training Program; Visit Provider Nurse Practitioner Family ==

== ENCOUNTER 2024-01-07 14:43 | Outpatient (AMB) | payer OTHER, SELFPAY ==
--- NOTE | 2024-01-07 14:40 | A.OFFVIS_ITS ---
Vital Signs 01/07/24 14:42 Height 5 ft 7 in BMI Reason not done Patient refused/unable BP 140/82 H Blood Pressure Location Lt brachial Position Sitting Pulse 89 Pulse Source Pulse Oximeter Pulse Oximetry (%) 95 Oxygen Delivery Method Room Air Intake Visit Reasons: Shortness of breath Allergies No Known Allergies Allergy (Verified 11/25/23 08:18) HPI HPI Shortness of breath: Details: Jeanine is pleasant 43 year old female, never smoker with underlying asthma. She was suboptimally controlled using Flovent and was switched to Breo. She reports significant improvement in symptoms, with decrease in frequency of wheezing, dyspnea and cough. However over the last two weeks she reports increased symptoms with associated chest congestion and difficulty expectorating despite mucinex. She denies fevers or chills. She does report daughter with URI sx. 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 Review of Systems Const Denies chills, Denies excessive sweating, Denies fever(s), Denies headache(s) and Denies night sweats Eyes Denies dry eyes, Denies irritation and Denies itchy eyes ENT Reports Normal hearing present, Denies headache(s), Denies nasal congestion, Denies nasal discharge, Denies post nasal drip and Denies sore throat Card Denies chest pain, Denies chest pain at rest, Denies chest pain with activity, Denies claudication, Denies leg edema, Denies orthopnea and Denies paroxysmal nocturnal dyspnea Resp Denies excessive phlegm production, Denies pain on inspiration, Denies pain with cough and Denies stridor Musc Denies myalgias Neuro Reports Normal hearing present and Denies headache(s) Endo Denies excessive sweating Jorge/Lymph Denies lymphadenopathy Aller/Immun Denies itchy eyes and Denies seasonal rhinorrhea Physical Exam Vital Signs: Last Vital Signs Pulse 89 01/07/24 14:42 BP 140/82 H 01/07/24 14:42 Pulse Ox 95 01/07/24 14:42 Oxygen Delivery Method Room Air 01/07/24 14:42 Const General: cooperative, healthy appearing, comfortable, no acute distress, well developed and alert Nutritional Appearance: obese Orientation/consciousness: patient oriented x3 Limitations: no limitations HEENT Head: Yes normal to inspection, Yes normocephalic and Yes atraumatic Ears: hearing grossly normal bilaterally and external ears normal Eyes General: appearance normal, both eyes and all related structures Eyelids: Yes eyelids normal Sclerae: sclerae normal EOM: EOMs intact bilaterally Neck Neck: Yes normal visual inspection and Yes no lymphadenopathy Lymphatic: no lymphadenopathy noted Chest Chest palpation & inspection: normal inspection of the chest Resp Effort & Inspection: normal respiratory effort, able to speak in complete sentences, no audible wheezes, no stridor, not tachypneic, no tripod positioning and no use of accessory muscles Auscultation: diminished lung sounds Cardio Jugular venous distension: no JVD Rate: regular rate Rhythm: regular rhythm Skin Other: warm, dry General skin exam: no rashes or lesions noted Neuro General: patient oriented x3 Cranial nerves: Yes Normal hearing present Cognition (Neuro): normal cognition Gait exam (Neuro): Normal gait present Extrem General: Yes normal to inspection, Yes capillary refill normal, Yes no clubbing, cyanosis or edema and Yes no pedal edema Psych Appearance: grossly normal and well kempt Speech and movement: Normal speech and movement present and Clear speech present Affect: normal affect Attitude: cooperative Thought process: Normal thought process present Thought content: Normal thought content present Insight: Good insight present (Psych) Judgement: Good judgement present (Psych) Assessment & Plan Assessment & Plan (1) Asthma: Code(s): J45.909 - Unspecified asthma, uncomplicated Category: Medical (2) Dyspnea: Code(s): R06.00 - Dyspnea, unspecified Category: Medical (3) Environmental allergies: Code(s): Z91.09 - Other allergy status, other than to drugs and biological substances Category: Medical (4) JONO (obstructive sleep apnea): Comment: Mild degree of sleep apnea. The AHI was 8/hr and oxygen marty was 82%. Code(s): G47.33 - Obstructive sleep apnea (adult) (pediatric) Category: Medical (5) Obesity: Code(s): E66.9 - Obesity, unspecified Category: Medical Plan Will treat with zpak and increase Breo. She is aware to call if symptoms do not improve. All questions were answered and patient is in agreement of plan. Will follow-up in 6-8 weeks or sooner if needed. Medications: New fluticasone furoate-vilanterol 200-25 mcg/dose (Breo Ellipta) 1 inh inhalation DAILY 60 ea 3RF azithromycin For 250 mg dose pack: take 500 mg today (day 1), then 250 mg for 4 days (days 2-5) PO 6 tabs 0RF Discontinued fluticasone furoate-vilanterol 100-25 mcg/dose (Breo Ellipta) Discontinued Reason: Patient Completed Course 1 inh inhalation DAILY 3 ea 1RF Coding Level of Care Code Est Pt Level 3 (68455) Diagnoses Asthma J45.909 Dyspnea R06.00 Environmental allergies Z91.09 JONO (obstructive sleep apnea) G47.33 Obesity E66.9
[2024-01-07 14:42] VITALS: BP 140/82; PULSE 89; O2SAT 95
--- OUTSIDE RECORDS SUMMARY | 2024-01-07 14:42 | XMS_ITS | Continuity of Care Document ---
Author Organization [facility] [employer] [employer] Address [address] [place] [address]- Care Team Providers Care [employer] Programmer Name Role Phone Yoli Nolen MD Primary Care Physician Encounter [facility] Date(s): [facility]24/23 [facility] [address] [place], [place] [address] Allergies, Adverse Reactions, Alerts Substance Reaction Severity Status Climara Pro itching redness Active Medications Abilify Tablet Daily, Maintenance, 05/10/14 14:52:19 Start Date: 05/10/14 Status: Ordered Activella oral tablet 1 tablet, By Mouth, Daily, # 28 tablet, 11 Refills, Maintenance, 11/06/21 13:55:00 EDT, Tablet, [facility]/pharmacy #[id number], Partial fill upon patient request if the [...] 08/19/22 17:45:00 EDT, Route to Pharmacy Electronically, [facility]/pharmacy #[id number], Partial fill upon patient request [...] 4 Refills, Maintenance, 11/07/22 7:55:00 EDT, Tablet, [facility]/pharmacy #[id number], Partial fill upon patient request [...] Effective Dates Status H ealth Status Informant Abnormal uterine bleeding Confirmed Active Anxiety Confirmed Active Asthma Confirmed Active Contraception [...] Team Personnel Name: Yoli Nolen MD Position: [facility] Outreach Member Role: PCP Address: Address: [address] [place] [address]- Name: Farzana Castro Position: S Outreach Member Role: [employer] Consulting Physician Care Team Related Persons Name: SAMRA HASSAN Address: home [address] [place] [address] Name: DUY CHAVEZ Address: home [address] [place] [address]
== END 2024-01-07 15:35 | disposition home or self-care (01) ==
PROVIDERS: PCP Student in an Organized Health Care Education/Training Program; Visit Provider Nurse Practitioner Family
DX: J45.909 Unspecified asthma, uncomplicated (principal); R06.00 Dyspnea, unspecified; Z91.09 Other allergy status, other than to drugs and biological substances; G47.33 Obstructive sleep apnea (adult) (pediatric); E66.9 Obesity, unspecified
CPT/HCPCS: 99213

== ENCOUNTER 2024-01-14 08:43 | Outpatient (AMB) | payer OTHER, SELFPAY ==
--- NOTE | 2024-01-14 08:49 | A.OFFVIS_ITS ---
Intake Visit Reasons: New problem Rt knee pain Intake Note: Jeanine is a 43 year old female who presents with complaints of progressively worsening right knee pain. The patient did undergo left knee arthroscopic surgery on 10/10/2023. She reports mild intermittent discomfort in her left knee. She describes her right knee pain as sharp in nature. She has tried Tylenol and anti-inflammatory medicines which gave her minimal relief. She has been walking with a cane because of her pain. Allergies No Known Allergies Allergy (Verified 01/14/24 09:01) Medication List - Last Reconciled 01/15/24 by Filipe Mcdowell MD albuterol sulfate 90 mcg/actuation 1 inh inhalation Q4H PRN alprazolam 0.25 mg PO DAILY PRN azithromycin For 250 mg dose pack: take 500 mg today (day 1), then 250 mg for 4 days (days 2-5) PO bupropion HCl XL (Wellbutrin XL) 300 mg PO QAM bupropion HCl XL (Wellbutrin XL) 150 mg PO QAM cholecalciferol (vitamin D3) 25 mcg PO DAILY cyanocobalamin (vitamin B-12) 3,000 mcg PO DAILY estradiol-norethindrone acet 1-0.5 mg (Mimvey) 1 tab PO DAILY fluticasone furoate-vilanterol 200-25 mcg/dose (Breo Ellipta) 1 inh inhalation DAILY galcanezumab-gnlm (Emgality Pen) 120 mg subcut ONCE 30 days hydrochlorothiazide 25 mg PO DAILY losartan 50 mg PO DAILY meloxicam 15 mg PO DAILY PRN 3 months rimegepant (Nurtec ODT) 75 mg orally daily PRN; 32 days walker As directed Standard adult walker [facility] Medical History GERD (gastroesophageal reflux disease) Sleep apnea Asthma Hypertension Hemorrhoids Depression Anxiety Migraine Surgical History H/O colonoscopy History of esophagogastroduodenoscopy (EGD) Hx of cholecystectomy Family History Mother Breast CA Diabetes Hypertension Depression Anxiety Father Hypertension Social History Household Members: Children Alcohol intake: current Alcohol intake frequency: does not drink Patient Tobacco Use Status: Never used 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 Const Other: Well-nourished well-developed very friendly female awake alert and oriented x3 in no acute distress Extrem Other: Bilateral lower extremity examination shows good capillary refill, no skin lesions noted, normal sensation light touch Right knee examination shows a minimal effusion, palpable crepitus with range of motion, pain with range of motion, no instability Office Procedures AMB Joint Injection/Aspiration Joint Injection/Aspiration Primary Site: right knee Prep: site was prepped using aseptic technique Injected: 40 mg of, DepoMedrol and 1% plain lidocaine Procedure: The patient tolerated the procedure well Coding - Large joint Procedure code (CPT) selection complete Results Reviewed Results Reviewed: X-rays of the patient's right knee show moderate to severe joint space narrowing most significant in the medial compartment, subchondral sclerosis, no acute bony abnormalities Assessment & Plan Assessment & Plan (1) Arthritis of right knee: Code(s): M17.11 - Unilateral primary osteoarthritis, right knee Category: Medical Plan Ms. Chau presents with progressively worsening right knee pain due to degenerative joint disease. I had lengthy discussion with the patient regarding the treatment options. The risks and benefits of a right knee cortisone injection were discussed at length with the patient. The patient wished to proceed. She tolerated the injection well. She will continue with her home exercise program. She will contact me prior to her follow-up appointment in 3 months should any questions or concerns arise. Feel free to call me at any time should questions regarding her orthopedic management arise. I spent 22 minutes in reviewing the patient's records and imaging studies, seeing the patient and documenting in the medical record. Orders: Orders XR knee RT 3V 01/14/24 M25.561 - Pain in right knee AMB Joint Injection/Aspiration 01/14/24 M17.11 - Unilateral primary osteoarthritis, right knee Coding Level of Care Code Est Pt Level 3 (33226) Complex EM visit Add On G2211 Diagnoses Arthritis of right knee M17.11 CPT Codes Coding - Large joint: 30621 - Large joint ([id number])
== END 2024-01-14 09:12 | disposition home or self-care (01) ==
LOC: HO.HOS 08:43
PROVIDERS: PCP Student in an Organized Health Care Education/Training Program; Visit Provider Orthopaedic Surgery
DX: M17.11 Unilateral primary osteoarthritis, right knee (principal)
CPT/HCPCS: 20610; 99213

== ENCOUNTER 2024-01-14 11:48 | Outpatient (REF) | payer OTHER, SELFPAY | END 2024-01-14 11:49 | disposition home or self-care (01) | LOC: HO.HOSX 11:48 | PROVIDERS: Visit Provider Orthopaedic Surgery | DX: M25.561 Pain in right knee (principal); M17.11 Unilateral primary osteoarthritis, right knee | CPT/HCPCS: 20610; 73562; J1010; J2003 ==

== ENCOUNTER 2024-01-27 07:33 | Outpatient (AMB) | payer OTHER, SELFPAY ==
[2024-01-27 07:36] VITALS: BMI 40.7
--- NOTE | 2024-01-27 07:36 | A.OFFVIS_ITS ---
Vital Signs 01/27/24 07:36 Height 5 ft 7 in Weight 260 lb BMI 40.7 Intake Visit Reasons: PO LT Knee 10/10/23 DR-follow up Intake Note: Jeanine is a 43 year old female who presents with complaints of progressively worsening right knee pain. The patient did undergo left knee arthroscopic surgery on 10/10/2023. She reports minimal discomfort in her left knee. She describes her right knee pain as sharp and severe in nature. She did have a cortisone injection given into her right knee last month. She got no relief from the injection. She has failed the last 3 months of conservative treatment which has included a home physical therapy exercise program, Tylenol, anti- inflammatory medicines, topical creams and a cortisone injection. The patient states that her right knee pain is now interfering with her activities of daily living and her ability to sleep well through the night. The patient wishes to hold off on right knee surgery if at all possible. She denies any locking or giving way. Allergies No Known Allergies Allergy (Verified 01/27/24 07:39) Medication List - Last Reviewed 01/27/24 by Rylee Ching CMA albuterol sulfate 90 mcg/actuation 1 inh inhalation Q4H PRN alprazolam 0.25 mg PO DAILY PRN azithromycin For 250 mg dose pack: take 500 mg today (day 1), then 250 mg for 4 days (days 2-5) PO bupropion HCl XL (Wellbutrin XL) 300 mg PO QAM bupropion HCl XL (Wellbutrin XL) 150 mg PO QAM cholecalciferol (vitamin D3) 25 mcg PO DAILY cyanocobalamin (vitamin B-12) 3,000 mcg PO DAILY estradiol-norethindrone acet 1-0.5 mg (Mimvey) 1 tab PO DAILY fluticasone furoate-vilanterol 200-25 mcg/dose (Breo Ellipta) 1 inh inhalation DAILY galcanezumab-gnlm (Emgality Pen) 120 mg subcut ONCE 30 days hydrochlorothiazide 25 mg PO DAILY losartan 50 mg PO DAILY meloxicam 15 mg PO DAILY PRN 3 months rimegepant (Nurtec ODT) 75 mg orally daily PRN; 32 days walker As directed Standard adult walker [facility] Medical History GERD (gastroesophageal reflux disease) Sleep apnea Asthma Hypertension Hemorrhoids Depression Anxiety Migraine Surgical History H/O colonoscopy History of esophagogastroduodenoscopy (EGD) Hx of cholecystectomy Family History Mother Breast CA Diabetes Hypertension Depression Anxiety Father Hypertension Social History Household Members: Children Alcohol intake: current Alcohol intake frequency: does not drink Patient Tobacco Use Status: Never used 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 Vital Signs: BMI result Body Mass Index 40.7 Const Other: Well-nourished well-developed very friendly female awake alert and oriented x3 in no acute distress Extrem Other: Bilateral lower extremity examination shows good capillary refill, no skin lesions noted, normal sensation light touch Right knee examination shows a minimal effusion, palpable crepitus with range of motion, pain with range of motion, range of motion from -3 degrees to 120 degrees, no instability Results Reviewed Results Reviewed: X-rays of the patient's right knee show joint space narrowing, subchondral sclerosis, no acute bony abnormalities Assessment & Plan Assessment & Plan (1) Osteoarthritis of right knee: Code(s): M17.11 - Unilateral primary osteoarthritis, right knee Category: Medical Plan Ms. Chau presents with progressively worsening right knee pain due to osteoarthritis. I had a lengthy discussion with the patient regarding the treatment options. She wishes to hold off on surgery for as long as possible. I agree with this plan. She has failed the last 3 months of conservative treatment which has included a cortisone injection that gave her no relief. Thus, I will see whether not her insurance company will cover a viscosupplementation injection for her right knee. I will see her back once the injection is available. Feel free to call me at any time should questions regarding her orthopedic management arise. I spent 22 minutes in reviewing the patient's records and imaging studies, seeing the patient and documenting in the medical record. Coding Level of Care Code Est Pt Level 3 (70561) Complex EM visit Add On G2211 Diagnoses Osteoarthritis of right knee M17.11
== END 2024-01-27 07:49 | disposition home or self-care (01) ==
PROVIDERS: PCP Student in an Organized Health Care Education/Training Program; Visit Provider Orthopaedic Surgery
DX: M17.11 Unilateral primary osteoarthritis, right knee (principal)
CPT/HCPCS: 99213

== ENCOUNTER 2024-02-25 12:57 | Outpatient (AMB) | payer OTHER, SELFPAY ==
--- NOTE | 2024-02-25 13:00 | MHC.OFFVIS ---
Vital Signs 02/25/24 13:01 Height 5 ft 7 in BMI Reason not done Patient refused/unable BP 130/78 Blood Pressure Location Rt brachial Position Sitting Pulse 74 Pulse Source Pulse Oximeter Pulse Oximetry (%) 98 Oxygen Delivery Method Room Air Intake Visit Reasons: Shortness of breath Allergies No Known Allergies Allergy (Verified 02/25/24 13:04) HPI HPI Shortness of breath: Details: Jeanine is pleasant 43 year old female, never smoker with underlying asthma. At the visit Breo was increased and she reports notable improvements. Using albuterol infrequently. She she does continue with dyspnea on moderate exertion and intermittent dry cough, denies wheezing or chest tightness. She denies any visits to urgent care hospitalizations related to respiratory distress since last visit. 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 Review of Systems Const Denies chills, Denies excessive sweating, Denies fever(s), Denies headache(s) and Denies night sweats Eyes Denies dry eyes, Denies irritation and Denies itchy eyes ENT Reports Normal hearing present, Denies headache(s), Denies nasal congestion, Denies nasal discharge, Denies post nasal drip and Denies sore throat Card Denies chest pain, Denies chest pain at rest, Denies chest pain with activity, Denies claudication, Denies leg edema, Denies orthopnea and Denies paroxysmal nocturnal dyspnea Resp Denies chest congestion, Denies excessive phlegm production, Denies pain on inspiration, Denies pain with cough, Denies stridor and Denies wheezing Musc Denies myalgias Neuro Reports Normal hearing present and Denies headache(s) Endo Denies excessive sweating Jorge/Lymph Denies lymphadenopathy Aller/Immun Denies itchy eyes, Denies seasonal rhinorrhea and Denies wheezing Physical Exam Vital Signs: Last Vital Signs Pulse 74 02/25/24 13:01 BP 130/78 02/25/24 13:01 Pulse Ox 98 02/25/24 13:01 Oxygen Delivery Method Room Air 02/25/24 13:01 Neuro Cranial nerves: Yes Normal hearing present Assessment & Plan Assessment & Plan (1) Asthma: Code(s): J45.909 - Unspecified asthma, uncomplicated Category: Medical (2) Dyspnea: Code(s): R06.00 - Dyspnea, unspecified Category: Medical (3) Environmental allergies: Code(s): Z91.09 - Other allergy status, other than to drugs and biological substances Category: Medical (4) JONO (obstructive sleep apnea): Comment: Mild degree of sleep apnea. The AHI was 8/hr and oxygen marty was 82%. Code(s): G47.33 - Obstructive sleep apnea (adult) (pediatric) Category: Medical (5) Obesity: Code(s): E66.9 - Obesity, unspecified Category: Medical Plan Advised patient to continue Breo and use albuterol more frequently. There is likely a component of deconditioning/obesity contributing to symptoms. She is aware of symptoms do not improve to call office. All questions were answered and patient is in agreement of plan. Will follow-up in 3 months or sooner if needed. Medications: Refilled fluticasone furoate-vilanterol 200-25 mcg/dose (Breo Ellipta) 1 inh inhalation DAILY 60 ea 3RF Coding Level of Care Code Est Pt Level 3 (70598) Diagnoses Asthma J45.909 Dyspnea R06.00 Environmental allergies Z91.09 JONO (obstructive sleep apnea) G47.33 Obesity E66.9
[2024-02-25 13:01] VITALS: BP 130/78; PULSE 74; O2SAT 98
== END 2024-02-25 14:10 | disposition home or self-care (01) ==
PROVIDERS: PCP Student in an Organized Health Care Education/Training Program; Visit Provider Nurse Practitioner Family
DX: J45.909 Unspecified asthma, uncomplicated (principal); R06.00 Dyspnea, unspecified; Z91.09 Other allergy status, other than to drugs and biological substances; G47.33 Obstructive sleep apnea (adult) (pediatric); E66.9 Obesity, unspecified
CPT/HCPCS: 99213

== ENCOUNTER 2024-03-31 13:01 | Outpatient (AMB) | payer OTHER, SELFPAY ==
--- NOTE | 2024-03-31 13:05 | MHC.OFFVIS ---
Vital Signs 03/31/24 13:06 Height 5 ft 7 in Weight 260 lb BMI 40.7 Pulse 89 Pulse Source Pulse Oximeter Pulse Oximetry (%) 96 Oxygen Delivery Method Room Air Intake Visit Reasons: Exposure to RSV hx of Asthma Natural Gas Inspector Required: No Radio Interference Supervisor: Radio Interference Supervisor offered & declined Accompanied by: Self / Same As Patient Allergies No Known Allergies Allergy (Verified 03/31/24 13:08) Medication List - Last Reconciled 03/31/24 by Diane Steiner LPN albuterol sulfate 90 mcg/actuation 1 inh inhalation Q4H PRN alprazolam 0.25 mg PO DAILY PRN bupropion HCl XL (Wellbutrin XL) 300 mg PO QAM bupropion HCl XL (Wellbutrin XL) 150 mg PO QAM cholecalciferol (vitamin D3) 25 mcg PO DAILY cyanocobalamin (vitamin B-12) 3,000 mcg PO DAILY estradiol-norethindrone acet 1-0.5 mg (Mimvey) 1 tab PO DAILY fluticasone furoate-vilanterol 200-25 mcg/dose (Breo Ellipta) 1 inh inhalation DAILY fluticasone propion-salmeterol 230-21 mcg/actuation (Advair HFA) 2 puffs inhalation Q12H galcanezumab-gnlm (Emgality Pen) 120 mg subcut ONCE 30 days hydrochlorothiazide 25 mg PO DAILY losartan 50 mg PO DAILY meloxicam 15 mg PO DAILY PRN 3 months rimegepant (Nurtec ODT) 75 mg orally daily PRN; 32 days walker As directed Standard adult walker HPI HPI Exposure to RSV hx of Asthma: Details: Jeanine is pleasant 44 year old female, never smoker with underlying asthma. At baseline, had been maintained on Breo with good effect however insurance no longer covering. Advair was sent in its place. She also noted that Singulair resulted in brain fog and discontinued. Today she presents for an acute visit. She reports daughter with RSV and subsequently she started with symptoms for the last week days that have been progressively worsening with worsening cough with clear sputum, chest tightness, wheezing, and dyspnea. She denies any chest congestion, fevers or chills.She has been using albuterol MDI frequently with minimal effect. She does have a nebulizer however tubing recently damaged so unable to use. 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 of Systems Const Denies chills, Denies excessive sweating, Denies fever(s), Denies headache(s) and Denies night sweats Eyes Denies dry eyes, Denies irritation and Denies itchy eyes ENT Reports Normal hearing present, Denies headache(s), Denies nasal congestion, Denies nasal discharge, Denies post nasal drip and Denies sore throat Card Denies chest pain, Denies chest pain at rest, Denies chest pain with activity, Denies claudication, Denies leg edema, Denies orthopnea and Denies paroxysmal nocturnal dyspnea Resp Denies chest congestion, Denies excessive phlegm production, Denies pain on inspiration, Denies pain with cough and Denies stridor Musc Denies myalgias Neuro Reports Normal hearing present and Denies headache(s) Endo Denies excessive sweating Jorge/Lymph Denies lymphadenopathy Aller/Immun Denies itchy eyes and Denies seasonal rhinorrhea Physical Exam Vital Signs: Last Vital Signs Pulse 89 03/31/24 13:06 Pulse Ox 96 03/31/24 13:06 Oxygen Delivery Method Room Air 03/31/24 13:06 BMI result Body Mass Index 40.7 Const General: cooperative, comfortable, no acute distress, well developed and alert Nutritional Appearance: obese Orientation/consciousness: patient oriented x3 Limitations: no limitations HEENT Head: Yes normal to inspection, Yes normocephalic and Yes atraumatic Ears: hearing grossly normal bilaterally and external ears normal Eyes General: appearance normal, both eyes and all related structures Eyelids: Yes eyelids normal Sclerae: sclerae normal EOM: EOMs intact bilaterally Neck Neck: Yes normal visual inspection and Yes no lymphadenopathy Lymphatic: no lymphadenopathy noted Chest Chest palpation & inspection: normal inspection of the chest Resp Other: diminished aeration with postexhalation cough through exam, improved with DuoNeb Effort & Inspection: normal respiratory effort, able to speak in complete sentences, no audible wheezes, no cough, no stridor, not tachypneic, no tripod positioning and no use of accessory muscles Cardio Jugular venous distension: no JVD Rate: regular rate Rhythm: regular rhythm Skin Other: warm, dry General skin exam: no rashes or lesions noted Neuro General: patient oriented x3 Cranial nerves: Yes Normal hearing present Cognition (Neuro): normal cognition Gait exam (Neuro): Normal gait present Extrem General: Yes normal to inspection, Yes capillary refill normal, Yes no clubbing, cyanosis or edema and Yes no pedal edema Psych Appearance: grossly normal and well kempt Speech and movement: Normal speech and movement present and Clear speech present Affect: normal affect Attitude: cooperative Thought process: Normal thought process present Thought content: Normal thought content present Insight: Good insight present (Psych) Judgement: Good judgement present (Psych) Office Procedures Nebulizer Treatment Nebulizer Treatment 09832-[id number]/MDI RX initial, or Nebulizer Subsequent Treatment Office Meds ipratropium 0.5 mg-albuterol 3 mg (2.5 mg base)/3 mL nebulization soln Performing Provider: Marlene Burns NP Performing Location: [facility] [place] Pulmonology Services-[facility] Administered by: Diane Steiner LPN on 03/31/24 14:10 Dose Route Admin Location Dispensed Lot Number Expiration Date [facility] Insurance Law Specialist 3 mL inhalation 3 mL [id number] 11/14/25 64524-371-04 [employer] Assessment & Plan Assessment & Plan (1) Asthma: Code(s): J45.909 - Unspecified asthma, uncomplicated Category: Medical (2) Dyspnea: Code(s): R06.00 - Dyspnea, unspecified Category: Medical (3) Environmental allergies: Code(s): Z91.09 - Other allergy status, other than to drugs and biological substances Category: Medical (4) JONO (obstructive sleep apnea): Comment: Mild degree of sleep apnea. The AHI was 8/hr and oxygen marty was 82%. Code(s): G47.33 - Obstructive sleep apnea (adult) (pediatric) Category: Medical (5) Obesity: Code(s): E66.9 - Obesity, unspecified Category: Medical Plan Will treat with prednisone and azithromycin. She is aware if symptoms do not improve to call office or if worsen seek emergent care. Will send in Advair in place of Breo due to insurance coverage issues. All questions were answered and patient is in agreement of plan. Will follow-up in 6-8 weeks or sooner if needed. Orders: Orders AMB Nebulizer Treatment Today J45.909 - Unspecified asthma, uncomplicated Medications: New cetirizine (Zyrtec) 10 mg PO DAILY PRN 30 tabs 3RF allergy symptoms azithromycin For 250 mg dose pack: take 500 mg today (day 1), then 250 mg for 4 days (days 2-5) PO 6 tabs 0RF prednisone 40 mg (2 x 20 mg) PO DAILY 10 tabs 0RF Coding Level of Care Code Est Pt Level 4 (18116) Diagnoses Asthma J45.909 Dyspnea R06.00 Environmental allergies Z91.09 JONO (obstructive sleep apnea) G47.33 Obesity E66.9 CPT Codes Nebulizer Treatment - Nebulizer Treatment, initial or subsequent: [id number]/MDI RX initial, or Nebulizer Subsequent Treatment ([id number])
[2024-03-31 13:06] VITALS: PULSE 89; O2SAT 96; BMI 40.7
== END 2024-03-31 13:32 | disposition home or self-care (01) ==
PROVIDERS: PCP Student in an Organized Health Care Education/Training Program; Visit Provider Nurse Practitioner Family
DX: J45.909 Unspecified asthma, uncomplicated (principal); R06.00 Dyspnea, unspecified; Z91.09 Other allergy status, other than to drugs and biological substances; G47.33 Obstructive sleep apnea (adult) (pediatric); E66.9 Obesity, unspecified
CPT/HCPCS: 99214

== ENCOUNTER → 2024-03-31 13:01 | Outpatient (BNVA) | payer OTHER, SELFPAY | PROVIDERS: PCP Student in an Organized Health Care Education/Training Program; Visit Provider Nurse Practitioner Family | DX: J45.909 Unspecified asthma, uncomplicated (principal); R06.00 Dyspnea, unspecified; G47.33 Obstructive sleep apnea (adult) (pediatric); E66.9 Obesity, unspecified; Z68.41 Body mass index [BMI] 40.0-44.9, adult; Z91.09 Other allergy status, other than to drugs and biological substances | CPT/HCPCS: 94640 ==

== ENCOUNTER 2024-05-26 12:54 | Outpatient (AMB) | payer OTHER, SELFPAY ==
[2024-05-26 12:58] VITALS: BP 122/64; PULSE 80; O2SAT 98; BMI 42.0
--- NOTE | 2024-05-26 12:58 | A.OFFVIS_ITS ---
Vital Signs 05/26/24 12:58 Height 5 ft 7 in Weight 268 lb BMI 42.0 BP 122/64 Blood Pressure Location Rt brachial Pulse 80 Pulse Source Pulse Oximeter Pulse Oximetry (%) 98 Oxygen Delivery Method Room Air Intake Visit Reasons: Shortness of breath Supplemental Manager Required: No Bilingual Administrative Assistant: Bilingual Administrative Assistant offered & declined Accompanied by: Self / Same As Patient Allergies No Known Allergies Allergy (Verified 05/26/24 13:03) Medication List - Last Reconciled 05/26/24 by Diane Steiner LPN albuterol sulfate 90 mcg/actuation 1 inh inhalation Q4H PRN alprazolam 0.25 mg PO DAILY PRN bupropion HCl XL (Wellbutrin XL) 300 mg PO QAM bupropion HCl XL (Wellbutrin XL) 150 mg PO QAM cetirizine (Zyrtec) 10 mg PO DAILY PRN cholecalciferol (vitamin D3) 25 mcg PO DAILY cyanocobalamin (vitamin B-12) 3,000 mcg PO DAILY estradiol-norethindrone acet 1-0.5 mg (Mimvey) 1 tab PO DAILY fluticasone furoate-vilanterol 200-25 mcg/dose (Breo Ellipta) 1 inh inhalation DAILY fluticasone propion-salmeterol 230-21 mcg/actuation (Advair HFA) 2 puffs inhalation Q12H galcanezumab-gnlm (Emgality Pen) 120 mg subcut ONCE 30 days hydrochlorothiazide 25 mg PO DAILY losartan 50 mg PO DAILY meloxicam 15 mg PO DAILY PRN 3 months rimegepant (Nurtec ODT) 75 mg orally daily PRN; 32 days walker As directed Standard adult walker HPI HPI Shortness of breath: Details: Jeanine is pleasant 44 year old female, never smoker with underlying asthma. At baseline, had been moderately controlled with Breo, unable to tolerate Singulair. At the last visit she reported bronchitic symptoms and was treated with azithromycin and prednisone, with resolution of symptoms. She continues to report baseline dyspnea and wheezing, requiring albuterol MDI 1-2 times per day as well as nebulized therapy at night. She also notes that she has been attempting to increase activity, noting more dyspnea than prior. She denies any visits to urgent care or hospitalizations related to respiratory distres since the last visit. 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 Review of Systems Const Denies chills, Denies excessive sweating, Denies fever(s), Denies headache(s) and Denies night sweats Eyes Denies dry eyes, Denies irritation and Denies itchy eyes ENT Reports Normal hearing present, Denies headache(s), Denies nasal congestion, Denies nasal discharge, Denies post nasal drip and Denies sore throat Card Denies chest pain, Denies chest pain at rest, Denies chest pain with activity, Denies claudication, Denies leg edema, Reports dyspnea on exertion, Denies orthopnea and Denies paroxysmal nocturnal dyspnea Resp Denies chest congestion, Denies excessive phlegm production, Denies pain on inspiration, Denies pain with cough, Reports dyspnea on exertion, Denies stridor and Reports wheezing Musc Denies myalgias Neuro Reports Normal hearing present and Denies headache(s) Endo Denies excessive sweating Jorge/Lymph Denies lymphadenopathy Aller/Immun Denies itchy eyes, Denies seasonal rhinorrhea and Reports wheezing Physical Exam Vital Signs: Last Vital Signs Pulse 80 05/26/24 12:58 BP 122/64 05/26/24 12:58 Pulse Ox 98 05/26/24 12:58 Oxygen Delivery Method Room Air 05/26/24 12:58 BMI result Body Mass Index 42.0 Const General: cooperative, comfortable, no acute distress, well developed and alert Nutritional Appearance: obese Orientation/consciousness: patient oriented x3 Limitations: no limitations HEENT Head: Yes normal to inspection, Yes normocephalic and Yes atraumatic Ears: hearing grossly normal bilaterally and external ears normal Eyes General: appearance normal, both eyes and all related structures Eyelids: Yes eyelids normal Sclerae: sclerae normal EOM: EOMs intact bilaterally Neck Neck: Yes normal visual inspection and Yes no lymphadenopathy Lymphatic: no lymphadenopathy noted Chest Chest palpation & inspection: normal inspection of the chest Resp Effort & Inspection: normal respiratory effort, able to speak in complete sentences, no audible wheezes, no cough, no stridor, not tachypneic, no tripod positioning and no use of accessory muscles Auscultation: diminished lung sounds Cardio Jugular venous distension: no JVD Rate: regular rate Rhythm: regular rhythm Skin Other: warm, dry General skin exam: no rashes or lesions noted Neuro General: patient oriented x3 Cranial nerves: Yes Normal hearing present Cognition (Neuro): normal cognition Gait exam (Neuro): Normal gait present Extrem General: Yes normal to inspection, Yes capillary refill normal, Yes no clubbing, cyanosis or edema and Yes no pedal edema Psych Appearance: grossly normal and well kempt Speech and movement: Normal speech and movement present and Clear speech present Affect: normal affect Attitude: cooperative Thought process: Normal thought process present Thought content: Normal thought content present Insight: Good insight present (Psych) Judgement: Good judgement present (Psych) Assessment & Plan Assessment & Plan (1) Asthma: Code(s): J45.909 - Unspecified asthma, uncomplicated Category: Medical (2) Dyspnea: Code(s): R06.00 - Dyspnea, unspecified Category: Medical (3) Environmental allergies: Code(s): Z91.09 - Other allergy status, other than to drugs and biological substances Category: Medical (4) JONO (obstructive sleep apnea): Comment: Mild degree of sleep apnea. The AHI was 8/hr and oxygen marty was 82%. Code(s): G47.33 - Obstructive sleep apnea (adult) (pediatric) Category: Medical (5) Obesity: Code(s): E66.9 - Obesity, unspecified Category: Medical Plan Papis reports suboptimal control on Breo, will switch to Trelegy. Patient also notes increase in symptoms related to allergies, will refill zyrtec. All questions were answered and patient is in agreement of plan. Will follow-up in 6-8 weeks or sooner if needed. Medications: New albuterol sulfate 90 mcg/actuation 1 inh inhalation Q4H PRN 1 ea 3RF Shortness Of Breath Or Wheezing [id number]-[id number] 200-62.5-25 mcg (Trelegy Ellipta) 1 inh inhalation DAILY 60 ea 6RF albuterol sulfate 2.5 mg (3 mL) inhalation Q4-6H PRN 180 mL 0RF shortness of breath or wheezing Refilled cetirizine (Zyrtec) 10 mg PO DAILY PRN 30 tabs 3RF allergy symptoms Discontinued fluticasone propion-salmeterol 230-21 mcg/actuation (Advair HFA) Discontinued Reason: Patient Completed Course 2 puffs inhalation Q12H 12 grams 3RF Coding Level of Care Code Est Pt Level 4 (37687) Diagnoses Asthma J45.909 Dyspnea R06.00 Environmental allergies Z91.09 JONO (obstructive sleep apnea) G47.33 Obesity E66.9
--- OUTSIDE RECORDS SUMMARY | 2024-05-26 14:59 | XMS_ITS | Encounter Summary ---
Author Organization [employer] Address [address] [place] [address] Care Team Providers Care Pipelines Supervisor Name Role Phone Yoli Nolen MD Primary Care Provider [phone] Reason for Visit * Reason Comments Med Refill Encounter Details Date Type Department Care Team ([facility] st Contact Info) Description 07/14/2022 Refill [facility] [address] [place] [address] Adam Queen MD [address] [place] [address] Social History Tobacco Use Types Packs/Day Years Used Date Smoking Tobacco: Never Smokeless Tobacco: Never Alcohol Use Standard Drinks/Week Comments Never 0 (1 standard drink = 0.6 oz pur e alcohol) Comments Unknown Sex and Gender Information Value Date Recorded Sex Assigned at Female 01/14/2022 10:16 AM EDT Legal Sex Female 10:16 AM EDT Gender Identity Female 09/15/2023 3:43 PM EDT Sexual Orientation Straight 01/14/2022 10 :16 AM EDT COVID-19 Exposure Response Date Recorded In the last 10 days, have yo u been in contact with someone who was confirmed or suspected to have Coronavirus/COVID-19? No / Unsure 06/17/2022 9:08 AM EDT documented as of this encounter Plan of Treatment Not on file documented as of this encounter Visit Diagnoses Not on filedocumented in this encounter Care Teams Pipelines Supervisor Relationship Specialty Start Date End Date Yoli Nolen MD [address] [place] [address] PCP - General Family Medicine 03/24/13 documented as of this encounter
--- OUTSIDE RECORDS SUMMARY | 2024-05-26 14:59 | XMS_ITS | Clinical Summary ---
Author Organization [employer] Address [address] [place] [address] 7t [place] [address] Care Team Providers Care Pricing Manager Name Role Phone Yoli Nolen MD Primary Care Provider [phone] Allergies Active Allergy Reactions Criticality Noted Date Comments Estradiol-Levonorgestrel 08/05/2022 Other reaction(s): itching, redness Medications Vitamin D3 Super Strength 50 MCG (2000 UT) tablet Take by mouth in the morning. 022 Active Mimvey 1-0.5 MG tablet 023 Active gabapentin (Neurontin) 100 MG capsule Take 100 mg by mouth 3 times daily. 023 Active Rimegepant Sulfate (Nurtec) 75 MG tablet dispersible 022 Active ALPRAZolam (Xanax) 0.25 MG tablet Take 0.25 mg by mouth if needed at bedtime. Active ergocalciferol (Vitamin D2) 1.25 MG (81593 UT) capsule TAKE 1 CAPSULE BY MOUTH ONE TIME PER WEEK 12 capsule 11 023 Active Elastic Bandages & Supports (TruForm Stockings 10-20mmHg) miscIndication s:Bilateral leg edema To use daily prior to getting out of bed. 1 each 1 023 Active Elastic Bandages & Supports (TruForm Stockings 10-20mmHg) miscIndication s:Bilateral leg edema 15/20 mm/Hg. Knee high. 1 each 1 023 Active fluticasone (Flovent HFA) 110 MCG/ACT inhaler TAKE 1 PUFF TWICE A DAY 12 g 11 023 Active albuterol (2.5 MG/3ML) 0.083% nebulizer solution Take 3 mL (2.5 mg) by nebulization every 4 (four) hours if needed for wheezing. 75 mL 11 023 Active montelukast (Singulair) 10 MG tabletIndicati ons:Asthma, unspecified asthma severity, unspecified whether complicated, unspecified whether persistent TAKE 1 TABLET BY MOUTH EVERY DAY IN THE MORNING 90 tablet 3 023 Active azelastine (Astelin) 0.1 % nasal spray Administer 1 spray into each nostril 2 times daily. Use in each nostril as directed 30 mL 12 024 Active oxymetazoline (Afrin Nasal [place]) 0.05 % nasal spray Administer 2 sprays into each nostril every 12 (twelve) hours if needed for congestion for up to 2 days. Do not use for more than 3 days. 30 mL 024 Active fluticasone (Flonase) 50 MCG/ACT nasal spray INSTILL 2 SPRAYS INTO EACH NOSTRIL ONCE DAILY 48 mL 024 Active [employer] Omeprazole 20 MG tablet delayed-releas eIndications:C ervical radiculopathy, Neck pain TAKE 1 TABLET BY MOUTH TWICE A DAY 28 tablet 024 Active loratadine (Claritin) 10 MG tablet Take 1 tablet (10 mg) by mouth in the morning. 30 tablet 3 024 Active naproxen (Naprosyn) 500 MG tabletIndicati ons:Acute pain of left knee Take 1 tablet by mouth with food twice daily for 7 days or until pain lessens substantially. Then take one tablet by mouth every 12 hours as needed for pain. 30 tablet 1 Active buPROPion XL (Wellbutrin XL) 150 MG 24 hr tablet TAKE 1 TABLET EVERY MORNING ALONG WITH THE 300 MG FOR A TOTAL DAILY DOSE OF 450 MG Active Breo Ellipta 100-25 MCG/ACT aerosol powder INHALE 1 PUFF INTO LUNGS ONCE DAILY Active Emgality 120 MG/ML auto-injector 120 MG SUBCUTANEOUSLY ONCE FOR 30 DAYS Active meloxicam (Mobic) 15 MG tablet TAKE 1 TABLET BY MOUTH EVERY DAY NEEDED FOR PAIN FOR 3 MONTHS Active naltrexone (Depade) 50 MG tablet Take 50 mg by mouth Once per day. Active albuterol 108 (90 Base) MCG/ACT inhaler INHALE 2 PUFFS EVERY 4 HOURS NEEDED NEEDED 18 g 11 Active losartan (Cozaar) 50 MG tablet TAKE 1 TABLET BY MOUTH EVERY DAY 90 tablet 1 Active hydroCHLOROthi azide (HYDRODiuril) 25 MG tablet TAKE 1 TABLET (25 MG) BY MOUTH ONCE PER DAY. 30 tablet 11 025 2025 Active hydroCHLOROthi azide (HYDRODiuril) 25 MG tablet Take 1 tablet (25 mg) by mouth Once per day. 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 I have seen this patient 2 times in January 2023 for asthma symptoms. When I saw her last I ordered her a chest Xray that she never went to get and I also advised her to consult provider to better control her asthma. Patient was here a week ago and saw Dr. Nolen for annual physical and reported these symptoms but at that time was given medication to relieve symptoms but no antibiotics since lungs sounded clear. Today, patient came in c/o nasal and chest congestion that has been ongoing for a week. She was seen at walk-in clinic on 05/09/2023 and given a 3-day course of Z- pack and Prednisone with no relief. No chest Xray were ordered. Plan for asthma exacerbation: Referred patient to pulmonology. She had a normal lung exam with uncontrolled ICS/BINH,. I ordered chest XR Chest and prescribed her amoxicillin, doxycycline, and prednisone to help relieve symptoms. Labs: Rapid Covid-19, Rapid Influenza A, Rapid Influenza B, SARS-CoV-2 RNA Assessment & Plan (01/28/2023 2:03 PM EST): No signs of wheezing, or trouble breathing, O2 levels were fine. However, patient still presents complaints of asthma exacerbations. Therefore, patient will be prescribed Albuterol, Robitussin-AC, Steroid Medication, and Antibiotics. Advised patient to talk to PCP about adjusting asthma medication. If symptoms don't improve, patient was recommended to be sent for imaging: Chest X-Rays. -Follow up with PCP. Encounters Date Type Department Care Team Description 04/29/2024 Refill [facility] [address] [place] [address] Yoli Nolen MD 04/08/2024 Refill [facility] [address] [place] [address] Yoli Nolen MD from Last 3 Months Immunizations Name Administration Dates Next Due Influenza injectable quadriv alent IIV4 with preservative 03/02/2018,01/15/2017,01/26/2016 Influenza, IIV3, injectable 02/07/2014 Influenza, Split (incl. yu fied surface antigen) 04/21/2012 Tdap 05/07/2023,01/02/2010 Social History Tobacco Use Types Packs/Day Years Used Date Smoking Tobacco: Never Smokeless Tobacco: Never Tobacco Cessation:Counseling Given: Not Answered Alcohol Use Standard Drinks/Week Comments Never 0 (1 standard drink = 0.6 oz pur e alcohol) Depression Answer Date Recorded Patient Health Questionnaire-9 Score 9 05/07/2023 Patient Health Questionnaire-9 Score 9 05/07/2023 Last PHQ-9: Questionnaire Data Not on file 0 05/07/2023 Housing Stability Answer Date Recorded What is your housing situation today? I have jaspal perez 01/02/[address] you li ve. Do you have problems with any of the following? None of the above 01/02/2023 Food Insecurity Answer Date Recorded Within the past 12 months, y ou worried that your food would run out before you got money to buy more: Never True 01/02/2023 Within the past 12 months,th e food you bought just didn't last and you didn't have enough money to get more: Never True Transportation Answer Date Recorded In the past 12 months, has l ack of transportation kept you from medical appts, meetings, work or from getting things needed for daily living? No 01/02/2023 Utilities Answer Date Recorded In the past 12 months, has t he electric, gas, oil or water company threatened to shut off services in your home? No 04/28/2023 Depression Answer Date Recorded Patient Health Questionnaire-2 Score 0 05/07/2023 Comments No Sex and Gender Information Value Date Recorded Sex Assigned at Female 01/14/2022 10:16 AM EDT Legal Sex Female 10:16 AM EDT Gender Identity Female 09/15/2023 3:43 PM EDT Sexual Orientation Straight 01/14/2022 10 :16 AM EDT Last Filed Vital Signs Vital Sign Reading Time Taken Comments Blood Pressure 144/75 10/20/2023 11:24 AM EDT Pulse 73 10/20/2023 11:24 AM EDT Temperature 36.8 ??C (98.2 ??F) 09/26/2023 10:21 AM E DT Respiratory Rate 18 09/26/2023 10:21 AM EDT Oxygen Saturation 98% 09/26/2023 10:21 AM EDT Inhaled Oxygen Concentration - - Weight 119 kg (262 lb 3.2 oz) 10/20/2023 11:23 A M EDT Height 168 cm (5' 6.14 ) 09/26/2023 10:21 AM EDT Body Mass Index 42.14 09/26/2023 10:21 AM EDT Plan of Treatment Health Maintenance Due Date Last Done Comments CT Colonography 1978 Colonoscopy 1978 Colorectal Cancer Screening 1978 FIT DNA/Cologuard 1978 FIT 1978 FOBT 1978 HIV Screening 1978 Sigmoidoscopy 1978 Alcohol/Substance Use Screening 1990 Family Planning (PISQ) 1993 Hepatitis C Screening 1996 Hepatitis B Vaccines (1 of 3 - 19+ 3-dose series) 1997 Pneumococcal Vaccine: Pediatrics (0 to 5 Years) and At-Risk Patients (6 to 49) Years) (1 of 2 - PCV) 1997 Depression Monitoring (PHQ-9) 11/05/2023 05/07/2023, 05/07/2023 COVID-19 Vaccine ( - season) 2023 01/18/2022, 02/26/2021, 06/09/2020, Additional history exists Influenza Vaccine (#1) 2023 , 02/26/2021, 12/20/2019, Additional history exists SDOH Screening 04/28/2024 04/28/2023 Depression Screening 05/07/2024 05/07/2023, 05/07/19 Diabetes: Hemoglobin A1C 09/11/2024 024, 12/20/2021, 09/13/2021 Tobacco Screening 09/11/2024 09/12/2023 Mammogram 11/26/2025 11/27/2023 Zoster Vaccines (1 of 2) 2028 Lipid Panel 05/07/2028 05/07/2023, 10/09/2022 Cervical Cancer Screening 08/03/2028 HPV/Cotest 08/03/2028 08/04/2023, 04/10/2020 Pap Smear 08/03/2028 08/04/2023, 04/10/2020 DTaP/Tdap/Td Vaccines (3 - Td or Tdap) 05/07/2033 05/07/2023, 01/02/2010 RSV Patients and Patients Aged 60 years or older (1 - 1-dose 75+ series) 2053 HIB Vaccines Aged Out No longer eligi ble based on patient's age to complete this topic HPV Vaccines Aged Out No longer eligi ble based on patient's age to complete this topic Hepatitis A Vaccines Aged Out No long er eligible based on patient's age to complete this topic IPV Vaccines Aged Out No longer eligi ble based on patient's age to complete this topic Meningococcal Vaccine Aged Out No nisha hai eligible based on patient's age to complete this topic RSV under 20 months Aged Out No longe r eligible based on patient's age to complete this topic Rotavirus Vaccines Aged Out No longer eligible based on patient's age to complete this topic Procedures Procedure Name Priority Date/Time Associated Diagnosis Comments BI MAMMOGRAM SCREENING BILATERAL Routine 11/27/2023 11:00 AM EDT HEMOGLOBIN A1C Routine 09/12/2023 8:34 AM EDT Class 3 severe obesity due to excess calories with serious comorbidity and body mass index (BMI) of 40.0 to 44.9 in adult ([facility]) Primary hypertension HM PAP/HPV Routine 08/04/2023 LIPID PANEL, STANDARD Routine 05/07/2023 10:19 AM EST Severe obesity ([facility]) from Last 3 Months or Most Recently Relevant to Health Maintenance Results * BI Mammogram Screening Bilateral (11/27/2023 11:00 AM EDT) Anatomical Region Laterality Modality Breast Bilateral Mammography us Historical Provider IMRolan BI PROCEDURES Final R esult * Hemoglobin A1c (09/12/2023 8:34 AM EDT) Hemoglobin A1c 5.7 <6.0 % [facility] Comment:Hemoglobin A1C Refer ence Range Adults: 4.8 - 6.0 % Non diabetic: < 6.0 % Goal: < 7.0 %Additional Action Suggested: > 8.0 %Note: Hemoglobin A1c results are invalid for patients with abnormal amounts of HbF. Blood transfusions may impact the HbA1c concentration in the patient sample. Estimated Average Glucose 117 mg/dL [facility] Comment:eAG = Estimated ave rage glucose which is %A1C expressed asaverage glucose, using the formula of the [id number] Glucose study (ADAG), Diabetes Care, Vol.31,#8,Oct. 2007 Blood Venous blood specimen / Unknown 09/12/2023 8:34 AM EDT 09/12/2023 2:15 PM EDT us Marianne Haywood MD LAB BLOOD ORDERABLES Final Re sult [facility] [address] [place] [address] [phone] * HM PAP/HPV (08/04/2023) Pap Smear 1. NILM 1. NILM HPV Not Detected Undetected, Indeterminat e, Quantitative , Not Detected Historical Provider HEALTH MAINTENANCE Edited Result - Final * (ABNORMAL) Lipid Panel, Standard (05/07/2023 10:19 AM EST) Triglycerides 88 <150 mg/dL [facility] Comment:Desirable Triglyceri de: less than 150 mg/dLBorderline High Triglyceride 150-199 mg/dLHigh Triglyceride: 200-499 mg/dLVery High Triglyceride: greater than or equal to 5OO mg/dL Cholesterol 198 <200 mg/dL [facility] Comment:Desirable Cholestero l: less than 200 mg/dLBorderline High Cholesterol: 200-239 mg/dLHigh Cholesterol: greater than 239 mg/dL LDL Cholesterol Calculated 131(H) <100 mg/dL [facility] Comment:Desirable LDL: less than 100 mg/dLNear Optimal/Above Optimal LDL: 110- 129 mg/dLBorderline High LDL: 130-159 mg/dLHigh LDL: 160-189 mg/dLVery High LDL: greater than or equal to 190 mg/dL HDL Cholesterol 50 >40 mg/dL [facility] Comment:Desirable HDL: great er than 40 mg/dL Note: This HDL assay may give artificially low results in patients with liver disease. Blood Venous blood specimen / Unknown 05/07/2023 10:19 AM EST 05/07/2023 2:37 PM EST Yoli Nolen MD LAB BLOOD ORDERABLES Final Resul t [facility] [address] [place] [address] [phone] from Last 3 Months or Most Recently Relevant to Health Maintenance [facility] Care Teams Pricing Manager Relationship Specialty Start Date End Date Yoli Nolen MD [address] [place] [address] [place] [address] PCP - General Family Medicine 03/24/13
--- OUTSIDE RECORDS SUMMARY | 2024-05-26 14:59 | XMS_ITS | Encounter Summary ---
Author Organization [employer] Address [address] [facility] 7t [place] [address] Care Team Providers Care High Density Finishing Operator Name Role Phone Yoli Nolen MD Primary Care Provider [phone] Reason for Visit * Reason Onset Date Comments Appointment Request 03/18/2023 Encounter Details Date Type Department Care Team ([facility] Contact Info) Description 03/18/2023 Telephone [facility] [address] [place] [address] Yoli Nolen MD [address] [place] [address] Appointment Request Social History Tobacco Use Types Packs/Day Years Used Date Smoking Tobacco: Never Smokeless Tobacco: Never Alcohol Use Standard Drinks/Week Comments Never 0 (1 standard drink = 0.6 oz pur e alcohol) Housing Stability Answer Date Recorded What is [...] to shut off services in your home? Already shut Off 12/22/2022 Comments Unknown Sex and Gender Information Value Date Recorded Sex Assigned at Female 01/14/2022 10:16 AM EDT Legal Sex Female 10:16 AM EDT Gender Identity Female 09/15/2023 3:43 PM EDT Sexual Orientation Straight 01/14/2022 10 :16 AM EDT documented as of this encounter Miscellaneous Notes * Telephone Encounter - Feliciano Leonardo - 03/18/2023 11:47 AM EST Tc from pt requesting to r/s appt for Physical on 03/19/2022 @ 10:15 am. Please contact pt @ [phone] documented in this encounter Plan of Treatment Not on file documented as of this encounter Visit Diagnoses Not on filedocumented in this encounter Care Teams High Density Finishing Operator Relationship Specialty Start Date End Date Yoli Nolen MD [address] [place] [id number] PCP - General Family Medicine 03/24/13 documented as of this encounter
--- OUTSIDE RECORDS SUMMARY | 2024-05-26 14:59 | XMS_ITS | Encounter Summary ---
Author Organization [employer] Address [address] [place] [address] [address]t [place] [address] Care Team Providers Care Privacy Specialist Name Role Phone Yoli Nolen MD Primary Care Provider [phone] Reason for Visit * Reason Comments Med Change Request Encounter Details Date Type Department Care Team ([facility] Contact Info) Description 04/29/2024 Refill C [facility] [address] [facility] [place] [address] Yoli Nolen MD [address] [place] [address] Social History Tobacco Use Types Packs/Day Years [...] Diagnoses Not on filedocumented in this encounter Additional Health Concerns Assessment Noted Time PHQ-9 Depression Total Score: 9 05/07/19 24 9:47 AM EST documented as of this encounter Care Teams Privacy Specialist Relationship Specialty Start Date End Date Yoli Nolen MD [address] [place] [address] PCP - General Family Medicine 03/24/13 documented as of this encounter
--- OUTSIDE RECORDS SUMMARY | 2024-05-26 14:59 | XMS_ITS | Encounter Summary ---
Author Organization [employer] Address [address] [place] [address] [address] [place] [address] Care Team Providers Care Staff Sonographer Name Role Phone Yoli Nolen MD Primary Care Provider [phone] Reason for Visit * Reason Comments Med Refill Encounter Details Date Type Department Care Team ([facility] st Contact Info) Description 10/29/2022 Refill C [facility] [address] [place] [address] Yoli Nolen MD [address] [place] [address] Social History Tobacco Use Types Packs/Day Years [...] on filedocumented in this encounter Care Teams Staff Sonographer Relationship Specialty Start Date End Date Yoli Nolen MD [address] [place] [address] PCP - General Family Medicine 03/24/13 documented as of this encounter
--- OUTSIDE RECORDS SUMMARY | 2024-05-26 14:59 | XMS_ITS | Encounter Summary ---
Author Organization [employer] Address [address] [facility] [address]t [place] [address] Care Team Providers Care Customer Service Consultant Name Role Phone Yoli Nolen MD Primary Care Provider [phone] Encounter Details Date Type Department Care Team (Late st Contact Info) Description 12/01/2023 Orders Only [facility] [address] [place] [address] Provider, MD Silvia Social History Tobacco Use Types Packs/Day Years [...] on file documented as of this encounter Procedures Procedure Name Priority Date/Time Associated Diagnosis Comments BI MAMMOGRAM SCREENING BILATERAL Routine 11/27/2023 11:00 AM EDT documented in this encounter Results * BI Mammogram Screening Bilateral (11/27/2023 11:00 AM EDT) Anatomical Region Laterality Modality Breast Bilateral Mammography Historical Provider MD MORENO BI PROCEDURES Final R esult documented in this encounter Visit Diagnoses Not on filedocumented in this encounter Additional Health Concerns Assessment Noted Time PHQ-9 Depression Total Score: 9 05/07/19 24 9:47 AM EST documented as of this encounter Care Teams Customer Service Consultant Relationship Specialty Start Date End Date Yoli Nolen MD [address] [place] [id number] PCP - General Family Medicine 03/24/13 documented as of this encounter
== END 2024-05-26 13:21 | disposition home or self-care (01) ==
LOC: HO.HPSW 12:55
PROVIDERS: PCP Student in an Organized Health Care Education/Training Program; Visit Provider Nurse Practitioner Family
DX: J45.909 Unspecified asthma, uncomplicated (principal); R06.00 Dyspnea, unspecified; Z91.09 Other allergy status, other than to drugs and biological substances; G47.33 Obstructive sleep apnea (adult) (pediatric); E66.9 Obesity, unspecified
CPT/HCPCS: 99214

== ENCOUNTER 2024-07-26 14:50 | Outpatient (AMB) | payer OTHER, SELFPAY ==
--- OUTSIDE RECORDS SUMMARY | 2024-07-26 14:53 | XMS_ITS | Encounter Summary ---
Author Organization [employer] Address [address] [facility] 7 [place] [address] Care Team Providers Care Tape Keller Operator Name Role Phone Yoli Nolen MD Primary Care Provider Reason for Visit * Reason Comments Pre-visit Planning Pre visit planning L VM Encounter Details Date Type Department Care Team (Late st Contact Info) Description 07/21/2024 Patient Outreach [facility] [address] [place] [address] Yoli Nolen MD [address] [place] [address] Pre-visit Planning (Pre visit planning LVM ) Social History Tobacco Use Types Packs/Day Years [...] AM EDT documented as of this encounter Progress Notes * Gustavo Frederick - 07/21/2024 10:35 AM EDT CC Gustavo Fairbanks placed outbound call to patient to complete pre-visit planning. No answer at this time.Patient name and were not confirmed. CC left voicemail requesting return call. Direct contact information provided. documented in this encounter Plan of Treatment Upcoming Encounters Date Type Department Care Team ([facility] st Contact Info) Description 07/29/2024 9:00 AM EDT Office Visit [facility] [address] [place] [address] Yoli Nolen MD [address] [place] [address] documented as of this encounter Visit Diagnoses Not on filedocumented in this encounter Additional Health Concerns Assessment Noted Time PHQ-9 Depression Total Score: 9 05/07/19 24 9:47 AM EST documented as of this encounter Care Teams Tape Keller Operator Relationship Specialty Start Date End Date Yoli Nolen MD [address] [place] [id number] PCP - General Family Medicine 03/24/13 documented as of this encounter
--- OUTSIDE RECORDS SUMMARY | 2024-07-26 14:53 | XMS_ITS | Encounter Summary ---
Author Organization [employer] Address [address] [facility] [address] [place] [address] Care Team Providers Care Media Planner / Buyer Name Role Phone Yoli Nolen MD Primary Care Provider [phone] Encounter Details Date Type Department Care Team (Latest Contact Info) Description 07/26/2024 Travel Social History Tobacco Use Types Packs/Day Years [...] as of this encounter Plan of Treatment Upcoming Encounters Date Type Department Care Team (Late st Contact Info) Description 07/29/2024 9:00 AM EDT Office Visit [facility] [address] [place] [address] Yoli Nolen MD [address] [place] [address] documented as of this encounter Visit Diagnoses Not on filedocumented in this encounter Additional Health Concerns Assessment Noted Time PHQ-9 Depression Total Score: 9 05/07/19 24 9:47 AM EST documented as of this encounter Care Teams Media Planner / Buyer Relationship Specialty Start Date End Date Yoli Nolen MD [address] [place] [id number] PCP - General Family Medicine 03/24/13 documented as of this encounter
--- OUTSIDE RECORDS SUMMARY | 2024-07-26 14:53 | XMS_ITS | Encounter Summary ---
Author Organization [employer] Address 75 [facility] 7t [place] [address] Care Team Providers Care Neck Skewer Name Role Phone Yoli Nolen MD Primary Care Provider [phone] Reason for Visit * Reason Onset Date Comments Appointment Request 03/18/2023 Encounter Details Date Type Department Care Team ([facility] Contact Info) Description 03/18/2023 Telephone [facility] PEDS [address] [place] [address] Yoli Nolen MD [address] [place] [address] Appointment Request Social History Tobacco Use Types [...] Miscellaneous Notes * Telephone Encounter - Feliciano Vargas Malissa - 03/18/2023 11:47 AM EST Tc from pt requesting to r/s appt for Physical on 03/19/2022 @ 10:15 am. Please contact pt @ [phone] documented in this encounter Plan of Treatment Upcoming Encounters Date Type Department Care Team (Late st Contact Info) Description 07/29/2024 9:00 AM EDT Office Visit [facility] [address] [place] [address] Yoli Nolen MD [address] [place] [address] documented as of this encounter Visit Diagnoses Not on filedocumented in this encounter Care Teams Neck Skewer Relationship Specialty Start Date End Date Yoli Nolen MD [address] [place] [phone] PCP - General Family Medicine 03/24/13 documented as of this encounter
--- OUTSIDE RECORDS SUMMARY | 2024-07-26 14:53 | XMS_ITS | Encounter Summary ---
Author Organization [employer] Address 75 [facility] 7 [place] [address] Care Team Providers Care Executive Advisor Name Role Phone Yoli Nolen MD Primary Care Provider [phone] Reason for Visit * Reason Comments Med Refill Encounter Details Date Type Department Care Team ([facility] Contact Info) Description 07/14/2022 Refill [facility] MED & PEDS [address] [place] [address] Adam Queen MD [address] [place] [address] Social History Tobacco Use Types Packs/Day Years [...] Upcoming Encounters Date Type Department Care Team ([facility] Contact Info) Description 07/29/2024 9:00 AM EDT Office Visit [facility] [address] [place] [address] Yoli Nolen MD [address] [place] [address] documented as of this encounter Visit Diagnoses Not on filedocumented in this encounter Care Teams Executive Advisor Relationship Specialty Start Date End Date Yoli Nolen MD [address] [place] [phone] PCP - General Family Medicine 03/24/13 documented as of this encounter
--- OUTSIDE RECORDS SUMMARY | 2024-07-26 14:53 | XMS_ITS | Clinical Summary ---
Author Organization [employer] Address 75 [facility] 7t [place] [address] Care Team Providers Care Pharmaceutical Botanist Name Role Phone Yoli Nolen MD Primary Care Provider Allergies Active Allergy Reactions Criticality Noted Date Comments Estradiol-Levonorgestrel 08/05/2022 Other reaction(s): itching, redness Medications Vitamin D3 Super Strength 50 MCG (1999 UT) tablet Take by mouth in the morning. 11/03/19 22 Active Mimvey 1-0.5 MG tablet 06/11/19 23 Active gabapentin (Neurontin) 100 MG capsule Take 100 mg by mouth 3 times daily. 05/28/19 23 Active Rimegepant Sulfate (Nurtec) 75 MG tablet dispersible 11/16/19 22 Active ALPRAZolam (Xanax) 0.25 MG tablet Take 0.25 mg by mouth if needed at bedtime. Active ergocalciferol (Vitamin D2) 1.25 MG (05490 UT) capsule TAKE 1 CAPSULE BY MOUTH ONE TIME PER WEEK 12 capsule 11 07/17/19 23 Active Elastic Bandages & Supports (TruForm Stockings 10-20mmHg) miscIndications :Bilateral leg edema To use daily prior to getting out of bed. 1 each 08/08/19 23 Active Elastic Bandages & Supports (TruForm Stockings 10-20mmHg) miscIndications :Bilateral leg edema 15/20 mm/Hg. Knee high. 1 each 08/08/19 23 Active fluticasone (Flovent HFA) 110 MCG/ACT inhaler TAKE 1 PUFF TWICE A DAY 12 g 11 01/03/20 23 Active albuterol (2.5 MG/3ML) 0.083% nebulizer solution Take 3 mL (2.5 mg) by nebulization every 4 (four) hours if needed for wheezing. 75 mL 11 01/29/20 23 Active montelukast (Singulair) 10 MG tabletIndicatio ns:Asthma, unspecified asthma severity, unspecified whether complicated, unspecified whether persistent TAKE 1 TABLET BY MOUTH EVERY DAY IN THE MORNING 90 tablet 3 02/11/20 23 Active azelastine (Astelin) 0.1 % nasal spray Administer 1 spray into each nostril 2 times daily. Use in each nostril as directed 30 mL 12 05/07/19 24 Active oxymetazoline (Afrin Nasal [place]) 0.05 % nasal spray Administer 2 sprays into each nostril every 12 (twelve) hours if needed for congestion for up to 2 days. Do not use for more than 3 days. 30 mL 05/07/19 24 Active fluticasone (Flonase) 50 MCG/ACT nasal spray INSTILL 2 SPRAYS INTO EACH NOSTRIL ONCE DAILY 48 mL 05/09/19 24 Active [facility] Omeprazole 20 MG tablet delayed-release Indications:Cer vical radiculopathy,N khoa pain TAKE 1 TABLET BY MOUTH TWICE A DAY 28 tablet 06/05/19 24 Active loratadine (Claritin) 10 MG tablet Take 1 tablet (10 mg) by mouth in the morning. 30 tablet 3 07/03/19 24 Active naproxen (Naprosyn) 500 MG tabletIndicatio ns:Acute pain of left knee Take 1 tablet by mouth with food twice daily for 7 days or until pain lessens substantially. Then take one tablet by mouth every 12 hours as needed for pain. 30 tablet 1 07/25/19 24 Active buPROPion XL (Wellbutrin XL) 150 MG 24 hr tablet TAKE 1 TABLET EVERY MORNING ALONG WITH THE 300 MG FOR A TOTAL DAILY DOSE OF 450 MG 06/10/19 24 Active Breo Ellipta 100-25 MCG/ACT aerosol powder INHALE 1 PUFF INTO LUNGS ONCE DAILY 09/04/19 24 Active Emgality 120 MG/ML auto-injector 120 MG SUBCUTANEOUSLY ONCE FOR 30 DAYS 08/21/19 24 Active meloxicam (Mobic) 15 MG tablet TAKE 1 TABLET BY MOUTH EVERY DAY NEEDED FOR PAIN FOR 3 MONTHS 08/13/19 24 Active naltrexone (Depade) 50 MG tablet Take 50 mg by mouth Once per day. 09/08/19 24 Active albuterol 108 (90 Base) MCG/ACT inhaler INHALE 2 PUFFS EVERY 4 HOURS NEEDED NEEDED 18 g 11 09/26/19 24 Active losartan (Cozaar) 50 MG tablet TAKE 1 TABLET BY MOUTH EVERY DAY 90 tablet 1 04/09/19 25 Active hydroCHLOROthia zide (HYDRODiuril) 25 MG tablet TAKE 1 TABLET (25 MG) BY MOUTH ONCE PER DAY. 90 tablet 4 05/29/19 25 026 Active Active Problems Problem Noted Date Diagnosed Date [...] Encounters Date Type Department Care Team Description 07/26/2024 Travel 07/21/2024 Patient Outreach [facility] [address] [place], [place] [phone] Yoli Nolen MD Pre-visit Planning (Pre visit planning LVM ) 05/28/2024 Refill [facility] MED & PEDS [address] [place], [place] [phone] Yoli Nolen MD 04/29/2024 Refill [facility] MED & PEDS [address] [place], [place] [phone] Yoli Nolen MD from Last 3 Months [...] 09/26/2023 10:21 AM EDT Plan of Treatment Upcoming Encounters Date Type Department Care Team (Late st Contact Info) Description 07/29/2024 9:00 AM EDT Office Visit [facility] MED & PEDS [address] [place] [address] Yoli Nolen MD [address] [place] [address] Health Maintenance Due Date Last Done Comments [...] Years) (1 of 2 - PCV) 1997 SDOH Screening 04/28/2024 04/28/2023 Depression Screening 05/07/2024 [...] older (1 - 1-dose 75+ series) 2053 COVID-19 Vaccine Completed 03/15/2024, 06/2021, 02/26/2021, Additional history exists Influenza Vaccine Completed 03/15/2024, , 02/26/2021, Additional history exists HIB Vaccines Aged Out No longer eligi [...] (BMI) of 40.0 to 44.9 in adult ([facility]) Primary hypertension HM PAP/HPV Routine 08/04/2023 LIPID PANEL, STANDARD Routine 05/07/2023 10:19 AM EST Severe obesity ([facility]) from Last 3 Months or Most Recently Relevant to Health Maintenance Results * BI Mammogram Screening Bilateral (11/27/2023 11:00 AM EDT) Anatomical Region Laterality Modality Breast Bilateral Mammography us Historical Provider MD MORENO BI PROCEDURES Final R esult * Hemoglobin A1c (09/12/2023 8:34 AM EDT) Hemoglobin A1c 5.7 <6.0 % [facility] Comment:Hemoglobin A1C Refer ence Range Adults: 4.8 - 6.0 % Non diabetic: < 6.0 % Goal: < 7.0 %Additional Action Suggested: > 8.0 %Note: Hemoglobin A1c results are invalid for patients with abnormal amounts of HbF. Blood transfusions may impact the HbA1c concentration in the patient sample. Estimated Average Glucose 117 mg/dL [facility] Comment:eAG = Estimated ave rage glucose which is %A1C expressed asaverage glucose, using the formula of the [id number] Glucose study (ADAG), Diabetes Care, Vol.31,#8,2007 Blood Venous blood specimen / Unknown 09/12/2023 8:34 AM EDT 09/12/2023 2:15 PM EDT us Marianne Haywood MD LAB BLOOD ORDERABLES Final Re sult Performing Organization Address City/[facility]/ZIP Co de Phone Number [facility] [address] [place] [phone] * HM PAP/HPV (08/04/2023) Pap Smear 1. NILM 1. NILM HPV Not Detected Undetected, Indeterminat e, Quantitative , Not Detected Historical Provider HEALTH MAINTENANCE Edited Result - Final * (ABNORMAL) Lipid Panel, Standard (05/07/2023 10:19 AM EST) Triglycerides 88 <150 mg/dL [facility] Comment:Desirable Triglyceri de: less than 150 mg/dLBorderline High Triglyceride 150-199 mg/dLHigh Triglyceride: 200-499 mg/dLVery High Triglyceride: greater than or equal to 5OO mg/dL Cholesterol 198 <200 mg/dL [facility] Comment:Desirable Cholestero l: less than 200 mg/dLBorderline High Cholesterol: 200-239 mg/dLHigh Cholesterol: greater than 239 mg/dL LDL Cholesterol Calculated 131(H) <100 mg/dL [facility] Comment:Desirable LDL: less than 100 mg/dLNear Optimal/Above Optimal LDL: 110- 129 mg/dLBorderline High LDL: 130-159 mg/dLHigh LDL: 160-189 mg/dLVery High LDL: greater than or equal to 190 mg/dL HDL Cholesterol 50 >40 mg/dL [facility] Comment:Desirable HDL: great er than 40 mg/dL Note: This HDL assay may give artificially low results in patients with liver disease. Blood Venous blood specimen / Unknown 05/07/2023 10:19 AM EST 05/07/2023 2:37 PM EST Yoli Nolen MD LAB BLOOD ORDERABLES Final Resul t Performing Organization Address City/[facility]/ZIP Co de Phone Number [facility] [address] [place] [phone] from Last 3 Months or Most Recently Relevant to Health Maintenance Insurance [employer] [place] [id number] Care Teams Pharmaceutical Botanist Relationship Specialty Start Date End Date Yoli Nolen MD [address] [place] [phone] PCP - General Family Medicine 03/24/13
--- OUTSIDE RECORDS SUMMARY | 2024-07-26 14:53 | XMS_ITS | Encounter Summary ---
Author Organization [employer] Address [address] [place] [address] [address] [address] Care Team Providers Care Industrial Court Magistrate Name Role Phone Yoli Nolen MD Primary Care Provider [phone] Reason for Visit * Reason Comments Med Refill Encounter Details Date Type Department Care Team (Late st Contact Info) Description 10/29/2022 Refill [facility] MED & PEDS [address] [facility] [place] [address] Yoli Nolen MD [address] [place] [address] Social History Tobacco Use Types Packs/Day Years [...] Description 07/29/2024 9:00 AM EDT Office Visit [facility] MED [facility] PED[facility] [address] [facility] [place] [address] Yoli Nolen MD [address] [place] [address] documented as of this encounter Visit Diagnoses Not on filedocumented in this encounter Care Teams Industrial Court Magistrate Relationship Specialty Start Date End Date Yoli Nolen MD [address] [place] [phone] PCP - General Family Medicine 03/24/13 documented as of this encounter
--- OUTSIDE RECORDS SUMMARY | 2024-07-26 14:53 | XMS_ITS | Encounter Summary ---
Author Organization [employer] Address 75 [facility] 7t [place] [address] Care Team Providers Care Greenhouse Laborer Name Role Phone Yoli Nolen MD Primary Care Provider [phone] Encounter Details Date Type Department Care Team (Late st Contact Info) Description 12/01/2023 Orders Only [facility] [address] [place] [address] Provider, MD Silvia Social History Tobacco Use [...] Description 07/29/2024 9:00 AM EDT Office Visit [facility] MED & PEDS [address] [place] [address] Yoli Nolen MD [address] [place] [address] documented as of this encounter Procedures Procedure [...] documented as of this encounter Care Teams Greenhouse Laborer Relationship Specialty Start Date End Date Yoli Nolen MD [address] [place] [phone] PCP - General Family Medicine 03/24/13 documented as of this encounter
[2024-07-26 15:09] VITALS: BP 120/70; PULSE 94; O2SAT 94; BMI 41.0
--- NOTE | 2024-07-26 15:09 | MHC.OFFVIS ---
Vital Signs 07/26/24 15:09 Height 5 ft 7 in Weight 262 lb BMI 41.0 BP 120/70 Blood Pressure Location Rt brachial Position Sitting Pulse 94 Pulse Source Pulse Oximeter Pulse Oximetry (%) 94 Oxygen Delivery Method Room Air Intake Visit Reasons: follow up Intake Note: Patient presents follow up for migraines/JONO Facilities Operator Required: No Accompanied by: Self / Same As Patient Allergies No Known Allergies Allergy (Verified 07/26/24 15:12) HPI Comments Details: 44 y/o female presents for f/u visit for migraine and h/o sleep apnea. Patient was last seen in May of 2023 by our former colleague Billie Franco NP. Pt has started on Adderall IR 10mg bid about a month ago for tx of ADHD, managed by her psychiatrist. She also plans to start EMDR therapy with her therapist this summer to help her better manage depression symptoms. Pt also reports she continues to have knee pain s/p a torn meniscus repair last year, which was significantly limiting her mobility- was having to walk w/ a walker and a cane. 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 Pt reports she is having 4-6 migraine attacks per month, may vary between mild-severe. If more severe, can last a few days. She has not noticed an increase in her migraine attacks w/ the Adderall. She is compliant w/ Emgality, however if the dose is delayed by a day, she will have a breakthrough migraine. She uses Nurtec at onset of migraine, it is typically very effective. Pt reports she is generally sleeping ok, but if she has URI or asthma s/s, does sleep w/ HOB elevated w/ a wedge pillow. Previous home sleep study showed mild JONO with AHI was 8/hr and oxygen marty was 82%. 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 Vital Signs: Last Vital Signs Pulse 94 07/26/24 15:09 BP 120/70 07/26/24 15:09 Pulse Ox 94 07/26/24 15:09 Oxygen Delivery Method Room Air 07/26/24 15:09 BMI result Body Mass Index 41.0 Const General: cooperative and no acute distress Orientation/consciousness: patient oriented x3 Resp Effort & Inspection: normal respiratory effort and able to speak in complete sentences Neuro General: patient oriented x3 Cranial nerves: Yes CN's II-XII intact bilaterally Cognition (Neuro): normal cognition Psych Appearance: grossly normal Mental Status: mental status grossly normal Speech and movement: Normal speech and movement present Affect: normal affect Attitude: cooperative Assessment & Plan Assessment & Plan (1) Migraine: Code(s): G43.909 - Migraine, unspecified, not intractable, without status migrainosus Category: Medical (2) Sleep difficulties: Code(s): G47.9 - Sleep disorder, unspecified Category: Medical Plan For migraine prevention tx: Continue Emgality 120 mg/mL subcu monthly- as patient continues to have good clinical effect from use. Previously did not tolerate Amitriptyline or topiramate. Migraine treatment contraindications: All beta-blockers due to symptomatic asthma diagnosis For acute migraine treatment: Continue Rimegepant ODT (Nurtec ODT) 75mg, 1 tab at onset of headache.. Max of 1 tabs (75mg) per 24 hours. May adjunct with OTC Tylenol 650mg q 4 hours, Ibuprofen 600mg q 6 hours, or Naproxen 440mg q 12 hrs prn. Previously tried Ubrelvy, sumatriptan, and rizatriptan but they caused dizziness and unbalance, she did not tolerate and could not get out of bed For sleep and mild JONO: Concur with conservative treatments, such as sleeping with her head elevated. Follow-up with pulmonology as scheduled Will follow-up upon review of above and patient to follow-up in clinic in 6 months or sooner prn. Coding Level of Care Code Est Pt Level 4 (35325) Diagnoses Migraine G43.909 Sleep difficulties G47.9
== END 2024-07-26 15:54 | disposition home or self-care (01) ==
LOC: HO.HSMS 14:51
PROVIDERS: PCP Student in an Organized Health Care Education/Training Program; Visit Provider Nurse Practitioner Family
DX: G43.909 Migraine, unspecified, not intractable, without status migrainosus (principal); G47.9 Sleep disorder, unspecified
CPT/HCPCS: 99214

== ENCOUNTER → 2024-07-26 14:50 | Outpatient (BNVA) | payer OTHER, SELFPAY | PROVIDERS: PCP Student in an Organized Health Care Education/Training Program; Visit Provider Nurse Practitioner Family ==

== ENCOUNTER 2024-08-27 11:15 | Outpatient (AMB) | payer OTHER, SELFPAY ==
--- NOTE | 2024-08-27 11:18 | A.OFFVIS_ITS ---
Vital Signs 08/27/24 11:21 Height 5 ft 7 in Weight 262 lb 8 oz BMI 41.1 BP 108/64 Blood Pressure Location Lt brachial Position Sitting Pulse 85 Pulse Source Pulse Oximeter Pulse Oximetry (%) 98 Oxygen Delivery Method Room Air Intake Visit Reasons: Shortness of breath Allergies adhesive Allergy (Intermediate, Verified 08/27/24 11:27) Rash HPI HPI Shortness of breath: Details: Jeanine is pleasant 44 year old female, never smoker with underlying asthma and mild JONO unable to tolerate CPAP therapy. At baseline, had been moderately controlled with Trelegy, unable to tolerate Singulair. Over the last month she reports worsening asthma control and recently called 08/23 placed on prednisone with minimal improvement of symptoms. She has been using nebulized therapy BID and albuterol MDI BID with moderate improvement in symptoms. She continues to report dry cough, chest tightness, wheezing and dyspnea. She denies fevers, chills or chest congestion. She also reports ongoing BLE edema and orthopnea, prior echo revealed LVEF 55-60%, requesting cardiology referral. [facility] Medical History (Updated 08/27/24 @ 14:12 by Marlene Burns NP) GERD (gastroesophageal reflux disease) Sleep apnea Asthma Hypertension Hemorrhoids Depression Anxiety Migraine Surgical History (Updated 08/24/24 @ 15:42 by Myla Damon CMA) Hx of left knee surgery H/O colonoscopy History of esophagogastroduodenoscopy (EGD) Hx of cholecystectomy Family History Mother Breast CA Diabetes Hypertension Depression Anxiety Father Hypertension Social History Household Members: Children Alcohol intake: current Alcohol intake frequency: does not drink Patient Tobacco Use Status: Never used 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 Review of Systems Const Denies chills, Denies excessive sweating, Denies fever(s), Denies headache(s) and Denies night sweats Eyes Denies dry eyes, Denies irritation and Denies itchy eyes ENT Reports Normal hearing present, Denies headache(s), Denies nasal congestion, Denies nasal discharge, Denies post nasal drip and Denies sore throat Card Denies chest pain, Denies chest pain at rest, Denies chest pain with activity, Denies claudication, Denies leg edema, Reports dyspnea on exertion, Reports orthopnea and Reports paroxysmal nocturnal dyspnea Resp Denies change in phlegm color, Denies chest congestion, Reports cough, Denies hemoptysis, Denies excessive phlegm production, Denies pain on inspiration, Denies pain with cough, Reports dyspnea on exertion, Denies stridor and Reports wheezing Musc Denies myalgias Neuro Reports Normal hearing present and Denies headache(s) Endo Denies excessive sweating Jorge/Lymph Denies lymphadenopathy Aller/Immun Denies itchy eyes, Denies seasonal rhinorrhea and Reports wheezing Physical Exam Vital Signs: Last Vital Signs Pulse 85 08/27/24 11:21 BP 108/64 08/27/24 11:21 Pulse Ox 98 08/27/24 11:21 Oxygen Delivery Method Room Air 08/27/24 11:21 BMI result Body Mass Index 41.1 Const General: cooperative, comfortable, no acute distress, well developed and alert Nutritional Appearance: obese Orientation/consciousness: patient oriented x3 Limitations: no limitations HEENT Head: Yes normal to inspection, Yes normocephalic and Yes atraumatic Ears: hearing grossly normal bilaterally and external ears normal Eyes General: appearance normal, both eyes and all related structures Eyelids: Yes eyelids normal Sclerae: sclerae normal EOM: EOMs intact bilaterally Neck Neck: Yes normal visual inspection and Yes no lymphadenopathy Lymphatic: no lymphadenopathy noted Chest Chest palpation & inspection: normal inspection of the chest Resp Other: postexhalation cough Effort & Inspection: normal respiratory effort, able to speak in complete sentences, no audible wheezes, no stridor, not tachypneic, no tripod positioning and no use of accessory muscles Auscultation: diminished lung sounds Cardio Jugular venous distension: no JVD Rate: regular rate Rhythm: regular rhythm Skin Other: warm, dry General skin exam: no rashes or lesions noted Neuro General: patient oriented x3 Cranial nerves: Yes Normal hearing present Cognition (Neuro): normal cognition Gait exam (Neuro): Normal gait present Extrem General: Yes normal to inspection, Yes capillary refill normal, Yes no clubbing, cyanosis or edema and Yes no pedal edema Psych Appearance: grossly normal and well kempt Speech and movement: Normal speech and movement present and Clear speech present Affect: normal affect Attitude: cooperative Thought process: Normal thought process present Thought content: Normal thought content present Insight: Good insight present (Psych) Judgement: Good judgement present (Psych) Assessment & Plan Assessment & Plan (1) Asthma: Code(s): J45.909 - Unspecified asthma, uncomplicated Category: Medical (2) Dyspnea: Code(s): R06.00 - Dyspnea, unspecified Category: Medical (3) Environmental allergies: Code(s): Z91.09 - Other allergy status, other than to drugs and biological substances Category: Medical (4) JONO (obstructive sleep apnea): Comment: Mild degree of sleep apnea. The AHI was 8/hr and oxygen marty was 82%. Code(s): G47.33 - Obstructive sleep apnea (adult) (pediatric) Category: Medical (5) Obesity: Code(s): E66.9 - Obesity, unspecified Category: Medical Plan Jeanine reports suboptimal control on Trelegy, continues to report dyspnea, chest tightness, wheezing and dry cough. She has had multiple course of oral prednisone over the last few months, previously discussed initiating biologic therapy, which she is in agreement with. Will order dupixent. At this time patient with exacerbation, will extend prednisone course. She is aware to call if symptoms do not change or seek emergent care if symptoms worsen. Patient also reports ongoing BLE edema, orthopnea and PND. Will enter referral to cardiology. All questions were answered and patient is in agreement of plan. Will follow- up in 6-8 weeks or sooner if needed. Orders: Referrals Cardiology Referral G47.33 - Obstructive sleep apnea (adult) (pediatric), R06.01 - Orthopnea Medications: New prednisone see taper instructions; 40 mg Daily x3 days, 30 mg daily x3 days, 20 mg daily x3 days, 10 mg daily x3 days 10 mg PO DIRECTED 30 tabs 0RF Coding Level of Care Code Est Pt Level 4 (49157) Diagnoses Asthma J45.909 Dyspnea R06.00 Environmental allergies Z91.09 JONO (obstructive sleep apnea) G47.33 Obesity E66.9
[2024-08-27 11:21] VITALS: BP 108/64; PULSE 85; O2SAT 98; BMI 41.1
== END 2024-08-27 12:00 | disposition home or self-care (01) ==
LOC: HO.HPSW 11:15
PROVIDERS: PCP Student in an Organized Health Care Education/Training Program; Visit Provider Nurse Practitioner Family
DX: J45.909 Unspecified asthma, uncomplicated (principal); R06.00 Dyspnea, unspecified; Z91.09 Other allergy status, other than to drugs and biological substances; G47.33 Obstructive sleep apnea (adult) (pediatric); E66.9 Obesity, unspecified
CPT/HCPCS: 99214

== ENCOUNTER 2024-09-13 10:03 | Outpatient (AMB) | payer OTHER, SELFPAY ==
[2024-09-13 10:35] VITALS: BP 128/70; PULSE 96; O2SAT 97
--- NOTE | 2024-09-13 10:35 | A.OFFVIS_ITS ---
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: No Allergies adhesive Allergy (Intermediate, Verified 09/13/24 10:36) Rash Medication List - Last Reconciled 09/13/24 by Carol Ann Finney LPN albuterol sulfate 90 mcg/actuation 1 inh inhalation Q4H PRN albuterol sulfate 2.5 mg (3 mL) inhalation Q4-6H PRN alprazolam 0.25 mg PO DAILY PRN azithromycin For 250 mg dose pack: take 500 mg today (day 1), then 250 mg for 4 days (days 2-5) PO bupropion HCl XL (Wellbutrin XL) 300 mg PO QAM bupropion HCl XL (Wellbutrin XL) 150 mg PO QAM cetirizine (Zyrtec) 10 mg PO DAILY PRN cholecalciferol (vitamin D3) 25 mcg PO DAILY cyanocobalamin (vitamin B-12) 3,000 mcg PO DAILY dextroamphetamine-amphetamine 10 mg (Adderall) 10 mg PO BID doxycycline hyclate 100 mg PO BID dupilumab (Dupixent) 300 mg (2 mL) subcut Q2W dupilumab (Dupixent) 600 mg (4 mL) subcut Q2W estradiol-norethindrone acet 1-0.5 mg (Mimvey) 1 tab PO DAILY ncprrtwkepw-ygchrnuiy-lvssgswd 200-62.5-25 mcg (Trelegy Ellipta) 1 inh inhalation DAILY galcanezumab-gnlm (Emgality Pen) 120 mg subcut ONCE 30 days hydrochlorothiazide 25 mg PO DAILY losartan 50 mg PO DAILY meloxicam 15 mg PO DAILY PRN 3 months prednisone 40 mg (2 x 20 mg) PO DAILY prednisone 40 mg (2 x 20 mg) PO DAILY prednisone 10 mg PO DIRECTED rimegepant (Nurtec ODT) 75 mg orally daily PRN; 32 days walker As directed Standard adult walker HPI Comments Details: Papinatalee is here for a Dupixent teach she was educated on hand washing, injection preparation, administration, and disposal.?Jeanine? was able to return demonstrate proper technique for hand washing, injection preparation, administration and disposal of needle and states she has no questions at this time. Medication Dupixent 300mg/2mL autoinjector (patient?s own meds) Loading dose of 600mg given by the patient in 2 SQ injections; injection #1 R thigh;? injection #2 L thigh? Lot# [id number] expires 10/14/2026. Patient aware her next injection is in 15 days. Nurse visit only.? PFSH Medical History (Updated 08/27/24 @ 14:12 by Marlene [place] NP) GERD (gastroesophageal reflux disease) Sleep apnea Asthma Hypertension Hemorrhoids Depression Anxiety Migraine Surgical History (Updated 08/24/24 @ 15:42 by Myla Damon [facility]) Hx of left knee surgery H/O colonoscopy History of esophagogastroduodenoscopy (EGD) Hx of cholecystectomy Family History Mother Breast CA Diabetes Hypertension Depression Anxiety Father Hypertension Social History Household Members: Children Alcohol intake: current Alcohol intake frequency: does not drink Patient Tobacco Use Status: Never used 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
--- OUTSIDE RECORDS SUMMARY | 2024-09-13 10:40 | XMS_ITS | Encounter Summary ---
Author Organization [employer] Address [address] [place] [address] 7 [place] [address] Care Team Providers Care Head Men'S Tennis Coach Name Role Phone Yoli Nolen MD Primary Care Provider [phone] Reason for Visit * Reason Onset Date Comments Prior Authorization 08/03/2024 Encounter Details Date Type Department Care Team ([facility] Contact Info) Description 08/03/2024 Telephone [facility] MED & PEDS [address] [place] [address] Yoli Nolen MD [address] [place] [address] Prior Authorization Social History Tobacco Use Types Packs/Day Years [...] Recorded What is your housing situation today? Not on richard e 07/29/[address] you li ve. Do you have problems with any of the following? None of the above 07/29/2024 Food Insecurity Answer Date Recorded Within the past 12 months, y ou worried that your food would run out before you got money to buy more: Never True 07/29/2024 Within the past 12 months,th e food you bought just didn't last and you didn't have enough money to get more: Never True Transportation Answer Date Recorded In the past 12 months, has l ack of transportation kept you from medical appts, meetings, work or from getting things needed for daily living? No 07/29/2024 Utilities Answer Date Recorded In the past 12 months, has t he electric, gas, oil or water company threatened to shut off services in your home? No 07/29/2024 Depression Answer Date Recorded Patient Health Questionnaire-2 Score 0 05/07/2023 Internet Access Answer Date Recorded Internet Access Q1 Yes 07/29/2024 Internet Access Q2 Not on file 07/29/2024 Comments No Sex and Gender Information Value Date Recorded Sex Assigned at Female 01/14/2022 10:16 AM EDT Legal Sex Female 10:16 AM EDT Gender Identity Female 09/15/2023 3:43 PM EDT Sexual Orientation Straight 01/14/2022 10 :16 AM EDT documented as of this encounter Miscellaneous Notes * Telephone Encounter - Yoli Nloen MD - 08/04/2024 11:07 AM EDT Please let the pt know Thanks for trying * Telephone Encounter - Zahra Ferreira LPN - 08/03/2024 9:58 AM EDT prior authorization request was denied by insurance . They have informed that pt will need to complete a six-month weight loss management program. Sending to PCP as an FYI documented in this encounter Plan of Treatment Upcoming Encounters Date Type Department Care Team (Late st Contact Info) Description 09/23/2024 11:00 AM EDT Nutrition [facility] DI[facility]NTRN [address] [place], [place] [id number] Anni Nuñez, RD [address] [place] [address] 11/01/2024 11:30 AM EDT Telemedicine [facility] MED & PEDS [address], [place] [phone] Yoli Nolen MD [address] [place] [address] documented as of this encounter Visit Diagnoses Not on filedocumented in this encounter Additional Health Concerns Assessment Noted Time PHQ-9 Depression Total Score: 9 05/07/19 24 9:47 AM EST documented as of this encounter Care Teams Head Men'S Tennis Coach Relationship Specialty Start Date End Date Yoli Nolen MD [address] [place] [address] PCP - General Family Medicine 03/24/13 documented as of this encounter
== END 2024-09-13 10:27 | disposition home or self-care (01) ==
LOC: HO.HPS 10:04
PROVIDERS: PCP Student in an Organized Health Care Education/Training Program; Visit Provider Nurse Practitioner Family
DX: J45.909 Unspecified asthma, uncomplicated (principal)

== ENCOUNTER → 2024-09-13 10:03 | Outpatient (BNVA) | payer OTHER, SELFPAY | PROVIDERS: PCP Student in an Organized Health Care Education/Training Program; Visit Provider Nurse Practitioner Family | DX: Z71.89 Other specified counseling (principal); J45.909 Unspecified asthma, uncomplicated | CPT/HCPCS: 99211 ==

== ENCOUNTER 2024-10-22 11:23 | Outpatient (AMB) | payer OTHER, SELFPAY ==
--- NOTE | 2024-10-22 11:24 | MHC.OFFVIS ---
Vital Signs 10/22/24 11:25 Height 5 ft 7 in Weight 266 lb 2 oz BMI 41.7 BP 138/72 Blood Pressure Location Rt radial Position Sitting Pulse 79 Pulse Source Pulse Oximeter Pulse Oximetry (%) 98 Oxygen Delivery Method Room Air Intake Visit Reasons: Shortness of breath Allergies adhesive Allergy (Intermediate, Verified 10/22/24 11:28) Rash HPI HPI Shortness of breath: Details: Jeanine is pleasant 44 year old female, never smoker with underlying asthma and mild JONO unable to tolerate CPAP therapy. Patient reported suboptimal control with Trelegy, using albuterol MDI frequently, unable to tolerate Singulair and started on Dupixent. She has had a total of 4 doses thus far and since starting went three weeks without the use of albuterol MDI. Unfortunately due to poor air quality, humidity and camp fire exposure patient reports worsening respiratory symptoms. She does have nebulized therapy however has not used. She previously reported ongoing BLE edema and orthopnea, prior echo revealed LVEF 55-60%, and will be evaluated by cardiology in January. [facility] Medical History (Updated 08/27/24 @ 14:12 by Marlene [place] NP) GERD (gastroesophageal reflux disease) Sleep apnea Asthma Hypertension Hemorrhoids Depression Anxiety Migraine Surgical History (Updated 08/24/24 @ 15:42 by Myla Damon [employer]TR [employer]) Hx of left knee surgery H/O colonoscopy History of esophagogastroduodenoscopy (EGD) Hx of cholecystectomy Family History Mother Breast CA Diabetes Hypertension Depression Anxiety Father Hypertension Social History Household Members: Children Alcohol intake: current Alcohol intake frequency: does not drink Patient Tobacco Use Status: Never used 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 Review of Systems Const Denies chills, Denies excessive sweating, Denies fever(s), Denies headache(s) and Denies night sweats Eyes Denies dry eyes, Denies irritation and Denies itchy eyes ENT Reports Normal hearing present, Denies headache(s), Denies nasal congestion, Denies nasal discharge, Denies post nasal drip and Denies sore throat Card Denies chest pain, Denies chest pain at rest, Denies chest pain with activity, Denies claudication, Denies leg edema, Reports dyspnea on exertion, Reports orthopnea and Reports paroxysmal nocturnal dyspnea Resp Denies change in phlegm color, Denies chest congestion, Reports cough, Denies hemoptysis, Denies excessive phlegm production, Denies pain on inspiration, Denies pain with cough, Reports dyspnea on exertion, Denies stridor and Reports wheezing Musc Denies myalgias Neuro Reports Normal hearing present and Denies headache(s) Endo Denies excessive sweating Jorge/Lymph Denies lymphadenopathy Aller/Immun Denies itchy eyes, Denies seasonal rhinorrhea and Reports wheezing Physical Exam Vital Signs: Last Vital Signs Pulse 79 10/22/24 11:25 Pulse Ox 98 10/22/24 11:25 Oxygen Delivery Method Room Air 10/22/24 11:25 BMI result Body Mass Index 41.7 Const General: cooperative, healthy appearing, comfortable, no acute distress, well developed and alert Nutritional Appearance: obese Orientation/consciousness: patient oriented x3 Limitations: no limitations HEENT Head: Yes normal to inspection, Yes normocephalic and Yes atraumatic Ears: hearing grossly normal bilaterally and external ears normal Eyes General: appearance normal, both eyes and all related structures Eyelids: Yes eyelids normal Sclerae: sclerae normal EOM: EOMs intact bilaterally Neck Neck: Yes normal visual inspection and Yes no lymphadenopathy Lymphatic: no lymphadenopathy noted Chest Chest palpation & inspection: normal inspection of the chest Resp Effort & Inspection: normal respiratory effort, able to speak in complete sentences, no audible wheezes, no cough, no stridor, not tachypneic, no tripod positioning and no use of accessory muscles Auscultation: clear to auscultation bilaterally Cardio Jugular venous distension: no JVD Rate: regular rate Rhythm: regular rhythm Skin Other: warm, dry General skin exam: no rashes or lesions noted Neuro General: patient oriented x3 Cranial nerves: Yes Normal hearing present Cognition (Neuro): normal cognition Gait exam (Neuro): Normal gait present Extrem General: Yes normal to inspection, Yes capillary refill normal, Yes no clubbing, cyanosis or edema and Yes no pedal edema Psych Appearance: grossly normal and well kempt Speech and movement: Normal speech and movement present and Clear speech present Affect: normal affect Attitude: cooperative Thought process: Normal thought process present Thought content: Normal thought content present Insight: Good insight present (Psych) Judgement: Good judgement present (Psych) Assessment & Plan Assessment & Plan (1) Asthma: Code(s): J45.909 - Unspecified asthma, uncomplicated Category: Medical (2) Dyspnea: Code(s): R06.00 - Dyspnea, unspecified Category: Medical (3) Environmental allergies: Code(s): Z91.09 - Other allergy status, other than to drugs and biological substances Category: Medical (4) JONO (obstructive sleep apnea): Comment: Mild degree of sleep apnea. The AHI was 8/hr and oxygen marty was 82%. Code(s): G47.33 - Obstructive sleep apnea (adult) (pediatric) Category: Medical (5) Obesity: Code(s): E66.9 - Obesity, unspecified Category: Medical Plan At this time Ibelis reports worsening respiratory symptoms, encouraged use of nebulized therapy will send DuoNeb. Advised to continue Trelegy, Dupixent, albuterol MDI PRN. Will hold off on prednisone at this time. She is aware to call if symptoms do not change or seek emergent care if symptoms worsen. Patient also reports ongoing BLE edema, orthopnea and PND, will have cardiology evaluation in January. All questions were answered and patient is in agreement of plan. Will follow-up in 8-10 weeks or sooner if needed. Medications: New ipratropium-albuterol 0.5 mg-3 mg(2.5 mg base)/3 mL 3 mL inhalation Q6H PRN 180 mL 0RF wheezing Coding Level of Care Code Est Pt Level 4 (19658) Diagnoses Asthma J45.909 Dyspnea R06.00 Environmental allergies Z91.09 JONO (obstructive sleep apnea) G47.33 Obesity E66.9
[2024-10-22 11:25] VITALS: BP 138/72; PULSE 79; O2SAT 98; BMI 41.7
--- OUTSIDE RECORDS SUMMARY | 2024-10-22 11:27 | XMS_ITS | Encounter Summary ---
Author Organization [employer] Address [address] [facility] [address] [place] [address] Care Team Providers Care Gas Examiner Name Role Phone Yoli Nolen MD Primary Care Provider [phone] Reason for Visit * Reason Comments Med Refill Encounter Details Date Type Department Care Team (Late st Contact Info) Description 10/29/2022 Refill [facility] MED & PEDS [address] [facility] [place] [address] Yoli Nolen MD [address] [place] [address] Social History Tobacco Use Types Packs/Day Years [...] Encounters Date Type Department Care Team (Late Contact Info) Description 11/18/2024 3:30 PM EDT Clinical Support [facility] DIABETES/NTRN [address] [place] [address] Anni Nuñez, RD [address] [place] [address] 12/22/2024 8:30 AM EDT Telemedicine [facility] MED & PEDS [address] [place] [address] Yoil Nolen MD [address] [place] [address] documented as of this encounter Visit Diagnoses Not on filedocumented in this encounter Care Teams Gas Examiner Relationship Specialty Start Date End Date Yoli Nolen MD [address] [place] [address] PCP - General Family Medicine 03/24/13 documented as of this encounter
== END 2024-10-22 11:47 | disposition home or self-care (01) ==
LOC: HO.HPSW 11:23
PROVIDERS: PCP Student in an Organized Health Care Education/Training Program; Visit Provider Nurse Practitioner Family
DX: J45.909 Unspecified asthma, uncomplicated (principal); R06.00 Dyspnea, unspecified; Z91.09 Other allergy status, other than to drugs and biological substances; G47.33 Obstructive sleep apnea (adult) (pediatric); E66.9 Obesity, unspecified
CPT/HCPCS: 99214

== ENCOUNTER 2024-11-08 08:11 | Outpatient (AMB) | payer OTHER, SELFPAY ==
--- NOTE | 2024-11-08 08:20 | MHC.OFFVISWM ---
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 [facility] Allergies adhesive Allergy (Intermediate, Verified 11/08/24 08:20) Rash Medication List - Last Reconciled 11/08/24 by Roshan [place] MD albuterol sulfate 90 mcg/actuation 1 inh inhalation Q4H PRN albuterol sulfate 2.5 mg (3 mL) inhalation Q4-6H PRN alprazolam 0.25 mg PO DAILY PRN ascorbate calcium (vitamin C) 500 mg PO DAILY bupropion HCl XL (Wellbutrin XL) 150 mg PO QAM cetirizine (Zyrtec) 10 mg PO DAILY PRN cholecalciferol (vitamin D3) 25 mcg PO DAILY cyanocobalamin (vitamin B-12) 3,000 mcg PO DAILY dupilumab (Dupixent) 300 mg (2 mL) subcut Q2W dupilumab (Dupixent) 600 mg (4 mL) subcut Q2W estradiol-norethindrone acet 1-0.5 mg (Mimvey) 1 tab PO DAILY gxxgrrmslbk-ewedosiso-qduvjkar 200-62.5-25 mcg (Trelegy Ellipta) 1 inh inhalation DAILY galcanezumab-gnlm (Emgality Pen) 120 mg subcut ONCE 30 days hydrochlorothiazide 25 mg PO DAILY ipratropium-albuterol 0.5 mg-3 mg(2.5 mg base)/3 mL 3 mL inhalation Q6H PRN lisdexamfetamine (Vyvanse) 50 mg PO DAILY losartan 50 mg PO DAILY multivit with min-folic acid 0.4 mg (One-A-Day Women's 50 Plus) tabs PO prednisone 40 mg (2 x 20 mg) PO DAILY rimegepant (Nurtec ODT) 75 mg orally daily PRN; 32 days vitamin B complex 1 tab PO DAILY walker As directed Standard adult walker HPI HPI 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 ETOH: none PFSH Medical History (Updated 11/08/24 @ 08:29 by Roshan [place] MD) Morbid obesity GERD (gastroesophageal reflux disease) Sleep apnea Asthma Hypertension Hemorrhoids Depression Anxiety Migraine Surgical History (Updated 08/24/24 @ 15:42 by Myla Damon CMA) Hx of left knee surgery H/O colonoscopy History of esophagogastroduodenoscopy (EGD) Hx of cholecystectomy Family History Mother Breast CA Diabetes Hypertension Depression Anxiety Father Hypertension Social History Household Members: Children Alcohol intake: current Alcohol intake frequency: does not drink Patient Tobacco Use Status: Never used 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 You will receive a link of our software aristides to generate an individualized nutritional and exercise plan specific for you. Please send me a screenshot of the plans you will generate Meal to include lean meat (beef, fish, pork, turkey, chicken), or congolese yogurt, or egg whites, or beans with a salad with olive oil and fruits (berries, pears, apples, kiwi). Avoid salt, breads, potatoes, rice, pasta, desserts. 2. If you choose shakes, each shake would be drunk slowly, like coffee in a period of 2 hours. ?3. If you choose bars, cut each bar in 4 pieces and eat each piece in 30min ?to make each bar last 2 hours. ?4. I emphasized the importance of measuring accurately the food portion and measure it when serving the food in plate ?5. The meal portions include a specific number of forks of meat and salad. You always eat the meat portion but you can replace up to half of salad/vegetables portion with rice, potatoes or pasta, or a fruit ?if you like. The less you do it the better weight loss will be. ?6. One full-size fork is what it can be scooped on the fork without falling aside and not what can be bit with the fork. Use regular forks like those you find in a typical restaurant. ?7.? Please buy the body composition scale we discussed and send me weight measurements as soon as possible and then once a week. Always include your diet and exercise plan. 8. The best choice would be to purchase a stationary bike at home that can track calories. You can create and exercise plan with the [employer] aristides. ?9. Goal is to lose at least 1.5-2lbs per week ?10. Goal to lose at least 10% of your weight, which is about 27lbs. Minimum weight goal: 230lbs 11. Please follow the diet plan exactly without any change. If you don't like something about the plan or you feel hungry you need to communicate with me so I can help you revise the plan. You should not change the plan yourself.
--- OUTSIDE RECORDS SUMMARY | 2024-11-08 08:28 | XMS_ITS | Encounter Summary ---
Author Organization [employer] Address [address] [facility] [address] [place] [address] Care Team Providers Care Senior Hydrogeologist Name Role Phone Yoli Nolen MD Primary Care Provider [phone] Reason for Visit * Reason Comments Med Refill Encounter Details Date Type Department Care Team (Late st Contact Info) Description 10/29/2022 Refill [facility] MED & PEDS [address] [place] [address] Yoli Nolen MD [address] [place] [address] Social History Tobacco Use Types Packs/Day Years [...] Description 11/18/2024 3:30 PM EDT Clinical Support [facility] DIABETES/NTRN [address] [place] [address] Anni Nuñez, RD [address] [place] [address] 12/22/2024 8:30 AM EDT Telemedicine [facility] MED & PEDS [address] [place] [address] Yoli Nolen MD [address] [place] [address] documented as of this encounter Visit Diagnoses Not on filedocumented in this encounter Care Teams Senior Hydrogeologist Relationship Specialty Start Date End Date Yoli Nolen MD [address] [place] [address] PCP - General Family Medicine 03/24/13 documented as of this encounter
[2024-11-08 08:36] VITALS: BMI 40.3
== END 2024-11-08 09:08 | disposition home or self-care (01) ==
LOC: HO.HBS 08:11
PROVIDERS: PCP Student in an Organized Health Care Education/Training Program; Visit Provider Surgery
DX: E66.01 Morbid (severe) obesity due to excess calories (principal); Z68.41 Body mass index [BMI] 40.0-44.9, adult
CPT/HCPCS: 98011

== ENCOUNTER 2024-12-17 15:17 | Outpatient (AMB) | payer OTHER, SELFPAY ==
--- OUTSIDE RECORDS SUMMARY | 2024-12-17 15:21 | XMS_ITS | Encounter Summary ---
Author Organization [employer] Address [address] [facility] [address] [place] [address] Care Team Providers Care Journal Clerk Name Role Phone Yoli Nolen MD Primary Care Provider Reason for Visit * Reason Comments Med Refill Encounter Details Date Type Department Care Team (Late st Contact Info) Description 10/29/2022 Refill [facility] MED & PEDS [address] [place] [address] Yoli Nolen MD [address] [place] [address] Social History Tobacco Use Types Packs/Day Years [...] Care Team (Late st Contact Info) Description 12/22/2024 8:30 AM EDT Telemedicine [facility] MED & PEDS [address] [place] [address] Yoli Nolen MD [address] [place] [address] documented as of this encounter Visit Diagnoses Not on filedocumented in this encounter Care Teams Journal Clerk Relationship Specialty Start Date End Date Yoli Nolen MD [address] [place] [address] PCP - General Family Medicine 03/24/13 documented as of this encounter
--- OUTSIDE RECORDS SUMMARY | 2024-12-17 15:21 | XMS_ITS | Encounter Summary ---
Author Organization [employer] Address [address] [facility] [address] [place] [address] Care Team Providers Care Machine Shop Lead Man Name Role Phone Yoli Nolen MD Primary Care Provider [phone] Reason for Visit * Reason Onset Date Comments Nutrition f/u appt 12/14/2024 Encounter Details Date Type Department Care Team (Late st Contact Info) Description 12/14/2024 Telephone [facility] [address] [place], [place] [phone] Anni Nuñez, RD [address] [place] [address] Nutrition f/u appt Social History Tobacco Use Types Packs/Day Years [...] housing situation today? I have jaspal perez 12/01/[address] you li ve. Do you have problems with any of the following? None of the above 12/01/2024 Food Insecurity Answer Date Recorded Within the [...] Access Answer Date Recorded Internet Access Q1 No 12/01/2024 Internet Access Q2 I do not want or need it 11/15 Comments No Sex and Gender Information Value Date Recorded Sex Assigned at Female 01/14/2022 10:16 AM EDT Legal Sex Female 10:16 AM EDT Gender Identity Female 09/15/2023 3:43 PM EDT Sexual Orientation Straight 01/14/2022 10 :16 AM EDT documented as of this encounter Miscellaneous Notes * Telephone Encounter - Janette Polanco MA - 12/14/2024 11:12 AM EDT Telephone call to patient to schedule a nutrition f/u appointment. No answer, Left voicemail to return call to clinic. documented in this encounter Plan of Treatment Upcoming Encounters Date Type Department Care Team (Late st Contact Info) Description 12/22/2024 8:30 AM EDT Telemedicine [facility] MED & PEDS [address] [place] [address] Yoli Nolen MD [address] [place] [address] documented as of this encounter Visit Diagnoses Not on filedocumented in this encounter Additional Health Concerns Assessment Noted Time PHQ-9 Depression Total Score: 9 05/07/19 24 9:47 AM EST documented as of this encounter Care Teams Machine Shop Lead Man Relationship Specialty Start Date End Date Yoli Nolen MD [address] [place] [address] PCP - General Family Medicine 03/24/13 documented as of this encounter
--- OUTSIDE RECORDS SUMMARY | 2024-12-17 15:21 | XMS_ITS | Clinical Summary ---
Author Organization [employer] Address [address] [facility] 7[address] [place] [address] Care Team Providers Care Pesticide Use Medical Coordinator Name Role Phone Yoli Nolen MD Primary Care Provider [phone] Allergies Active Allergy Reactions Criticality Noted Date Comments Estradiol-Levonorgestrel 08/05/2022 Other reaction(s): itching, redness Medications Vitamin D3 Super Strength 50 MCG (1999 UT) tablet Take by mouth in the morning. 022 Active Mimvey 1-0.5 MG tablet 023 Active Rimegepant Sulfate (Nurtec) 75 MG tablet dispersible 022 Active ALPRAZolam (Xanax) 0.25 MG tablet Take 0.25 mg by mouth if needed at bedtime. Active Elastic Bandages & Supports (TruForm Stockings 10-20mmHg) miscIndication s:Bilateral leg edema To use daily prior to getting out of bed. 1 each 1 023 Active Elastic Bandages & Supports (TruForm Stockings 10-20mmHg) miscIndication s:Bilateral leg edema 15/20 mm/Hg. Knee high. 1 each 023 Active albuterol (2.5 MG/3ML) 0.083% nebulizer solution Take 3 mL (2.5 mg) by nebulization every 4 (four) hours if needed for wheezing. 75 mL 11 023 Active azelastine (Astelin) 0.1 % nasal spray Administer 1 spray into each nostril 2 times daily. Use in each nostril as directed 30 mL 12 024 Active loratadine (Claritin) 10 MG tablet Take 1 tablet (10 mg) by mouth in the morning. 30 tablet 3 024 Active buPROPion XL (Wellbutrin XL) 150 MG 24 hr tablet TAKE 1 TABLET EVERY MORNING ALONG WITH THE 300 MG FOR A TOTAL DAILY DOSE OF 450 MG Active Emgality 120 MG/ML auto-injector 120 MG SUBCUTANEOUSLY ONCE FOR 30 DAYS Active naproxen (Naprosyn) 500 MG tabletIndicati ons:Acute pain of left knee TAKE 1 TAB BY MOUTH WITH FOOD 2 TIMES DAILY X7 DAYS OR UNTIL PAIN LESSENS SUBSTANTIALLY. THEN TAKE 1 TAB EVERY 12 HOURS NEEDED FOR PAIN. 30 tablet 1 Active albuterol 108 (90 Base) MCG/ACT inhaler INHALE 2 PUFFS EVERY 4 HOURS NEEDED NEEDED 6.7 g 11 Active losartan (Cozaar) 50 MG tablet TAKE 1 TABLET BY MOUTH EVERY DAY 90 tablet 1 Active Semaglutide-We ight Management (Wegovy) 0.25 MG/0.5ML solution auto-injectorI ndications:Sev ere obesity (CMS/HCC) (HCC) Inject 0.25 mg subcutaneously once a week for weeks 1-4 2 mL 3 Active ergocalciferol (Vitamin D2) 1.25 MG (47809 UT) capsule TAKE 1 CAPSULE BY MOUTH ONE TIME PER WEEK 12 capsule 11 023 2024 Discontinued fluticasone (Flovent HFA) 110 MCG/ACT inhaler TAKE 1 PUFF TWICE A DAY 12 g 11 023 2024 Discontinued hydroCHLOROthi azide (HYDRODiuril) 25 MG tablet TAKE 1 TABLET (25 MG) BY MOUTH ONCE PER DAY. 90 tablet 4 025 2024 Discontinued Tirzepatide-We ight Management (Zepbound) 2.5 MG/0.5ML solution auto-injectorI ndications:Sev ere obesity (CMS/HCC) (HCC) Inject 0.5 mL (2.5 mg) under the skin 1 (one) time per week. 2 mL 3 025 2024 Discontinued Active Problems Problem Noted Date Diagnosed Date Primary hypertension 07/03/2023 Anxiety 08/05/2022 Family history of breast cancer 08/05/2022 Depression 08/05/2022 Severe obesity ([facility]/HCC) 08/05/2022 Non-rapid eye movement sleep arousal disorder, 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 Bipolar II disorder ([facility]/HCC) 06/17/2022 Generalized anxiety disorder with panic attacks [...] Encounters Date Type Department Care Team Description 12/14/2024 Telephone [facility] MEDICINE [address] [facility] [address] Nutrition f/u appt 12/01/2024 8:30 AM EDT Telemedicine [facility] MED & PEDS [address] [place] [address] Yoli Nolen MD Primary hypertension (Primary Dx); Severe obesity (CMS/HCC); Asthma, unspecified asthma severity, unspecified whether complicated, unspecified whether persistent 12/01/2024 Telephone [facility] MED & PEDS [address] [place] [address] Yoli Nolen MD Prior Authorization 12/01/2024 Travel 11/30/2024 Telephone [facility] MED & PEDS [address] [place] [address] Yoli Nolen MD Chart Prep 11/18/2024 3:30 PM EDT Clinical Support [facility] DIABETES/NTRN [address] [place] [address] [address]ñez RD Severe obesity (CMS/HCC) (Primary Dx) 11/18/2024 Travel 11/17/2024 Refill [facility] MED & PEDS [address] [place] [address] Yoli Nolen MD 11/13/2024 Travel 10/14/2024 10:00 AM EDT Clinical Support [facility] DIABETES/NTRN [address] [place] [address] [address]ñez [address] Severe obesity (CMS/HCC) (Primary Dx) 10/14/2024 Travel 10/14/2024 Refill [facility] MED & PEDS [address] [place] [address] Yoli Nolen MD 10/11/2024 Telephone [facility] MEDICINE [address] [place] [address] [place] [address] Yoli Nolen MD Appointment Request 09/30/2024 11:00 AM EDT Clinical Support [facility] DIABETES/NTRN [address] [place] [address] [address]ñez RD Severe obesity (CMS/HCC) (Primary Dx) 09/30/2024 Travel 09/29/2024 Travel 09/23/2024 11:00 AM EDT Nutrition [facility] DIABETES/NTRN [address] [place] [address] [address]ñez [address] Severe obesity ([facility]/HCC) 09/23/2024 Travel from Last 3 Months Immunizations Immunization Administration Dates Next Due Influenza injectable quadriv [...] Sign Reading Time Taken Comments Blood Pressure 141/79 07/29/2024 9:10 AM EDT Pulse 81 07/29/2024 9:10 AM EDT Temperature 36.6 C (97.9 F) 07/29/2024 9:10 AM EDT Respiratory Rate 16 07/29/2024 9:10 AM EDT Oxygen Saturation 99% 07/29/2024 9:10 AM EDT Inhaled Oxygen Concentration - - Weight 117 kg (259 lb) 11/18/2024 4:42 PM EDT Height 168 cm (5' 6.14 ) 11/18/2024 4:42 PM EDT Body Mass Index 41.63 11/18/2024 4:42 PM EDT Plan of Treatment Upcoming Encounters Date Type Department Care Team (Late st Contact Info) Description 12/22/2024 8:30 AM EDT Telemedicine [facility] CHC MED & PEDS [address] [place] [address] Yoli Nolen MD [address] [place] [address] Health Maintenance Due Date Last Done Comments CT Colonography 1978 FIT DNA/Cologuard 1978 FIT 1978 FOBT 1978 HIV Screening 1978 Sigmoidoscopy 1978 Family Planning (PISQ) 1993 Hepatitis C Screening 1996 Hepatitis B Vaccines (1 of 3 - 19+ 3-dose series) 1997 Pneumococcal Vaccine: Pediatrics (0 to 5 Years) and At-Risk Patients (6 to 49) Years (1 of 2 - PCV) 1997 Depression Monitoring 11/05/2023 05/07/2023, 024 Tobacco Screening 09/11/2024 09/12/2023 Influenza Vaccine (#1) 2024 4, 01/18/2022, 02/26/2021, Additional history exists Mammogram 11/26/2024 11/27/2023 Disability Screening 07/26/2025 07/26/2024 Alcohol/Substance Use Screening 12/01/2025 12/01/2024 SDOH Screening 12/01/2025 12/01/2024 Zoster Vaccines (1 of 2) 2028 Lipid Panel 05/07/2028 05/07/2023, 10/09/2022 Cervical Cancer Screening 08/03/2028 HPV/Cotest 08/03/2028 08/04/2023, 04/10/2020 Pap Smear 08/03/2028 08/04/2023, 04/10/2020 Colonoscopy 01/01/2031 01/01/2021 Colorectal Cancer Screening 01/01/2031 DTaP/Tdap/Td Vaccines (3 - Td or Tdap) 05/07/2033 05/07/2023, 01/02/2010 RSV Patients and Patients Aged 60 years or older (1 - 1-dose 75+ series) 2053 COVID-19 Vaccine Completed 03/15/2024, 06/2021, 02/26/2021, Additional history exists HIB Vaccines Aged [...] patient's age to complete this topic Meningococcal B Vaccine Aged Out No l onger eligible based on patient's age to complete [...] SCREENING BILATERAL Routine 11/27/2023 11:00 AM EDT HM PAP/HPV Routine 08/04/2023 LIPID PANEL, STANDARD Routine 05/07/2023 10:19 AM EST Severe obesity (CMS/HCC) COLONOSCOPY Routine 01/01/2021 from Last 3 Months or Most Recently Relevant to Health Maintenance Results * BI Mammogram Screening Bilateral (11/27/2023 11:00 AM EDT) Anatomical Region Laterality Modality Breast Bilateral Mammography Historical Provider IMG BI PROCEDURES Final R esult * PAP/HPV (08/04/2023) Pap Smear 1. NILM 1. NILM HPV Not Detected Undetected, Indeterminat e, Quantitative , Not Detected Historical Provider HEALTH MAINTENANCE Edited Result - Final * (ABNORMAL) Lipid Panel, Standard (05/07/2023 10:19 AM EST) Triglycerides 88 <150 mg/dL [facility] Comment:Desirable Triglyceri de: less than 150 mg/dLBorderline High Triglyceride 150-199 mg/dLHigh Triglyceride: 200-499 mg/dLVery High Triglyceride: greater than or equal to 5OO mg/dL Cholesterol 198 <200 mg/dL [facility] Comment:Desirable Cholestero l: less than 200 mg/dLBorderline High Cholesterol: 200-239 mg/dLHigh Cholesterol: greater than 239 mg/dL LDL Cholesterol Calculated 131(H) <100 mg/dL [facility] Comment:Desirable LDL: less than 100 mg/dLNear Optimal/Above Optimal LDL: 110- 129 mg/dLBorderline High LDL: 130-159 mg/dLHigh LDL: 160-189 mg/dLVery High LDL: greater than or equal to 190 mg/dL HDL Cholesterol 50 >40 mg/dL [facility] Comment:Desirable HDL: great er than 40 mg/dL Note: This HDL assay may give artificially low results in patients with liver disease. Blood Venous blood specimen / Unknown 05/07/2023 10:19 AM EST 05/07/2023 2:37 PM EST Yoli Nolen MD LAB BLOOD ORDERABLES Final Resul t [facility] [address] [place] [address] [phone] * Hm Colonoscopy (01/01/2021) Colonoscopy Normal Normal Narrative Farzana Castro - 01/01/2021 Recommended 10 years. See See legacy note on 01/01/2021 us Historical Provider HEALTH MAINTENANCE Final Result from Last 3 Months or Most Recently Relevant to Health Maintenance Insurance [facility] [employer] Care Teams Pesticide Use Medical Coordinator Relationship Specialty Start Date End Date Yoli Nolen MD [address] [place] [id number] PCP - General Family Medicine 03/24/13
--- OUTSIDE RECORDS SUMMARY | 2024-12-17 15:21 | XMS_ITS | Encounter Summary ---
Author Organization [employer] Address [address] [facility] [address] [place] [address] Care Team Providers Care Pipe Puller Name Role Phone Yoli Nolen MD Primary Care Provider [phone] Encounter Details Date Type Department Care Team (Late st Contact Info) Description 12/01/2023 Orders Only [facility] [address] [place], [place] [id number] Provider, MD Silvia Social History Tobacco Use [...] Info) Description 12/22/2024 8:30 AM EDT Telemedicine [facility] CHC MED & PEDS [address] [place], [place] [phone] Yoli Nolen MD [address] [place] [address] documented as of this encounter Procedures Procedure [...] documented as of this encounter Care Teams Pipe Puller Relationship Specialty Start Date End Date Yoli Nolen MD [address] [place] [address] PCP - General Family Medicine 03/24/13 documented as of this encounter
--- OUTSIDE RECORDS SUMMARY | 2024-12-17 15:21 | XMS_ITS | Encounter Summary ---
Author Organization [employer] Address [address] [facility] [address] [place] [address] Care Team Providers Care Jet Aircraft Servicer Name Role Phone Yoli Nolen MD Primary Care Provider [phone] Reason for Visit * Reason Onset Date Comments Appointment Request 03/18/2023 Encounter Details Date Type Department Care Team ([facility] Contact Info) Description 03/18/2023 Telephone [facility] MED & PEDS [address] [facility] [place] [address] Yoli Nolen MD [address] [place] [address] Appointment Request Social History Tobacco Use Types [...] @ 10:15 am. Please contact pt @ [phone] documented in this encounter Plan of Treatment Upcoming Encounters Date Type Department Care Team (Late st Contact Info) Description 12/22/2024 8:30 AM EDT Telemedicine [facility] MED & PEDS [address] [place] [address] Yoli Nolen MD [address] [place] [address] documented as of this encounter Visit Diagnoses Not on filedocumented in this encounter Care Teams Jet Aircraft Servicer Relationship Specialty Start Date End Date Yoli Nolen MD [address] [place] [id number] PCP - General Family Medicine 03/24/13 documented as of this encounter
--- OUTSIDE RECORDS SUMMARY | 2024-12-17 15:22 | XMS_ITS | Encounter Summary ---
Author Organization [employer] Address [address] [facility] [address] [place] [address] Care Team Providers Care Lotus Notes Administrator Name Role Phone Yoli Nolen MD Primary Care Provider [phone] Reason for Visit * Reason Comments Med Refill Encounter Details Date Type Department Care Team ([facility] Contact Info) Description 07/14/2022 Refill [facility] MED & PEDS [address] [place] [address] Adam Queen MD [address] [place] [address] Social History Tobacco Use Types Packs/Day Years [...] Upcoming Encounters Date Type Department Care Team ([facility] Contact Info) Description 12/22/2024 8:30 AM EDT Telemedicine [facility] MED & PEDS [address] [place] [address] Yoli Nolen MD [address] [place] [address] documented as of this encounter Visit Diagnoses Not on filedocumented in this encounter Care Teams Lotus Notes Administrator Relationship Specialty Start Date End Date Yoli Nolen MD [address] [place] [id number] PCP - General Family Medicine 03/24/13 documented as of this encounter
--- NOTE | 2024-12-17 15:49 | MHC.OFFVIS ---
Vital Signs 12/17/24 15:50 Height 5 ft 7 in Weight 252 lb 8 oz BMI 39.5 BP 128/76 Blood Pressure Location Rt radial Position Sitting Pulse 86 Pulse Source Pulse Oximeter Pulse Oximetry (%) 98 Oxygen Delivery Method Room Air Intake Visit Reasons: Shortness of breath Allergies adhesive Allergy (Intermediate, Verified 11/08/24 08:20) Rash HPI HPI Shortness of breath: Details: Jeanine is pleasant 44 year old female, never smoker with underlying asthma and mild JONO unable to tolerate CPAP therapy. Patient reported suboptimal control with Trelegy, using albuterol MDI frequently, unable to tolerate Singulair and started on Dupixent. She had her first dose 09/13 and has continued with therapy q 2 weeks since. She reports notable improvement in persistent chest tightness, orthopnea and dyspnea. She uses albuterol MDI and nebulized therapy infrequently in addition to not requiring prednisone. She denies any visits to urgent care hospitalizations related to respiratory distress since last visit. [facility] Medical History (Updated 11/08/24 @ 08:29 by Roshan Thompson MD) Morbid obesity GERD (gastroesophageal reflux disease) Sleep apnea Asthma Hypertension Hemorrhoids Depression Anxiety Migraine Surgical History (Updated 08/24/24 @ 15:[address] 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 Review of Systems Const Denies chills, Denies excessive sweating, Denies fever(s), Denies headache(s) and Denies night sweats Eyes Denies dry eyes, Denies irritation and Denies itchy eyes ENT Reports Normal hearing present, Denies headache(s), Denies nasal congestion, Denies nasal discharge, Denies post nasal drip and Denies sore throat Card Denies chest pain, Denies chest pain at rest, Denies chest pain with activity, Denies claudication, Denies leg edema, Reports dyspnea on exertion and Reports paroxysmal nocturnal dyspnea Resp Denies change in phlegm color, Denies chest congestion, Denies hemoptysis, Denies excessive phlegm production, Denies pain on inspiration, Denies pain with cough, Reports dyspnea on exertion and Denies stridor Musc Denies myalgias Neuro Reports Normal hearing present and Denies headache(s) Endo Denies excessive sweating Jorge/Lymph Denies lymphadenopathy Aller/Immun Denies itchy eyes and Denies seasonal rhinorrhea Physical Exam Vital Signs: Last Vital Signs Pulse 86 12/17/24 15:50 BP 128/76 12/17/24 15:50 Pulse Ox 98 12/17/24 15:50 Oxygen Delivery Method Room Air 12/17/24 15:50 BMI result Body Mass Index 39.5 Const General: cooperative, healthy appearing, comfortable, no acute distress, well developed and alert Nutritional Appearance: obese Orientation/consciousness: patient oriented x3 Limitations: no limitations HEENT Head: Yes normal to inspection, Yes normocephalic and Yes atraumatic Ears: hearing grossly normal bilaterally and external ears normal Eyes General: appearance normal, both eyes and all related structures Eyelids: Yes eyelids normal Sclerae: sclerae normal EOM: EOMs intact bilaterally Neck Neck: Yes normal visual inspection and Yes no lymphadenopathy Lymphatic: no lymphadenopathy noted Chest Chest palpation & inspection: normal inspection of the chest Resp Effort & Inspection: normal respiratory effort, able to speak in complete sentences, no audible wheezes, no cough, no stridor, not tachypneic, no tripod positioning and no use of accessory muscles Auscultation: clear to auscultation bilaterally Cardio Jugular venous distension: no JVD Rate: regular rate Rhythm: regular rhythm Skin Other: warm, dry General skin exam: no rashes or lesions noted Neuro General: patient oriented x3 Cranial nerves: Yes Normal hearing present Cognition (Neuro): normal cognition Gait exam (Neuro): Normal gait present Extrem General: Yes normal to inspection, Yes capillary refill normal, Yes no clubbing, cyanosis or edema and Yes no pedal edema Psych Appearance: grossly normal and well kempt Speech and movement: Normal speech and movement present and Clear speech present Affect: normal affect Attitude: cooperative Thought process: Normal thought process present Thought content: Normal thought content present Insight: Good insight present (Psych) Judgement: Good judgement present (Psych) Assessment & Plan Assessment & Plan (1) Asthma: Code(s): J45.909 - Unspecified asthma, uncomplicated Category: Medical (2) Dyspnea: Code(s): R06.00 - Dyspnea, unspecified Category: Medical (3) Environmental allergies: Code(s): Z91.09 - Other allergy status, other than to drugs and biological substances Category: Medical (4) JONO (obstructive sleep apnea): Comment: Mild degree of sleep apnea. The AHI was 8/hr and oxygen marty was 82%. Code(s): G47.33 - Obstructive sleep apnea (adult) (pediatric) Category: Medical (5) Obesity: Code(s): E66.9 - Obesity, unspecified Category: Medical Plan At this time patient reports good control of respiratory symptoms on current regimen, advised to continue Dupixent, Trelegy, albuterol MDI/nebulized therapy. She is aware to call if symptoms change. All questions were answered and patient is in agreement of plan. Will follow-up 3 months or sooner if needed. Medications: Refilled ipratropium-albuterol 0.5 mg-3 mg(2.5 mg base)/3 mL 3 mL inhalation Q6H PRN 180 mL 3RF wheezing Coding Level of Care Code Est Pt Level 4 (92535) Diagnoses Asthma J45.909 Dyspnea R06.00 Environmental allergies Z91.09 JONO (obstructive sleep apnea) G47.33 Obesity E66.9
[2024-12-17 15:50] VITALS: BP 128/76; PULSE 86; O2SAT 98; BMI 39.5
== END 2024-12-17 16:07 | disposition home or self-care (01) ==
LOC: HO.HPSW 15:18
PROVIDERS: PCP Student in an Organized Health Care Education/Training Program; Visit Provider Nurse Practitioner Family
DX: J45.909 Unspecified asthma, uncomplicated (principal); R06.00 Dyspnea, unspecified; Z91.09 Other allergy status, other than to drugs and biological substances; G47.33 Obstructive sleep apnea (adult) (pediatric); E66.9 Obesity, unspecified
CPT/HCPCS: 99214

== ENCOUNTER 2025-03-01 14:29 | Outpatient (AMB) | payer OTHER, SELFPAY ==
--- NOTE | 2025-03-01 14:52 | MHC.OFFVIS ---
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 Allergies adhesive Allergy (Intermediate, Verified 11/08/24 08:20) Rash Medication List - Last Reconciled 03/01/25 by ALBERTO Carvajal albuterol sulfate 90 mcg/actuation 1 inh inhalation Q4H PRN albuterol sulfate 2.5 mg (3 mL) inhalation Q4-6H PRN alprazolam 0.25 mg PO DAILY PRN ascorbate calcium (vitamin C) 500 mg PO DAILY cetirizine 10 mg PO DAILY PRN cholecalciferol (vitamin D3) 25 mcg PO DAILY cyanocobalamin (vitamin B-12) 3,000 mcg PO DAILY dupilumab (Dupixent) 300 mg (2 mL) subcut Q2W dupilumab (Dupixent) 600 mg (4 mL) subcut Q2W estradiol-norethindrone acet 1-0.5 mg (Mimvey) 1 tab PO DAILY ctfnanjgdgv-bivbbzwao-rrgjhnzk 200-62.5-25 mcg (Trelegy Ellipta) 1 inh inhalation DAILY galcanezumab-gnlm (Emgality Pen) 120 mg subcut ONCE 30 days ipratropium-albuterol 0.5 mg-3 mg(2.5 mg base)/3 mL 3 mL inhalation Q6H PRN lisdexamfetamine (Vyvanse) 50 mg PO DAILY losartan 50 mg PO DAILY multivit with min-folic acid 0.4 mg (One-A-Day Women's 50 Plus) tabs PO rimegepant (Nurtec ODT) 75 mg orally daily PRN; 32 days vitamin B complex 1 tab PO DAILY walker As directed Standard adult walker HPI HPI STAFF SUBMAR[employer] OFFICER/[place]/Obstructive sleep apnea: Details: The patient is a 44-year-old female who presents for a cardiology consultation as referred by her solar lab technician for evaluation of shortness of breath, leg swelling, and chest tightness. Her medical history is significant for mild sleep apnea, asthma, obesity, and hypertension. Her shortness of breath has been present for months and occurs with activity, such as climbing stairs, but not at rest. She feels this is different from her asthma and notes that her dyspnea worsens if she does not wear compression socks. She reports occasional orthopnea, sometimes requiring more than one pillow to sleep. She has also experienced leg swelling for several months, which began around May or June. 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 A previously prescribed diuretic offered some relief but was discontinued by her primary care physician as her blood pressure stabilized. The patient describes chest tightness as a squeezing sensation, which occurs both at rest and with exertion, including stair climbing and during periods of high stress at work. She has difficulty distinguishing this sensation from panic attacks. She also reports intermittent, brief, fluttering palpitations that have become more noticeable over the past year. Her past medical history includes a heart murmur as a child, hypertension treated with losartan 50 mg daily, and well-controlled asthma. She is non-adherent with her CPAP machine for sleep apnea due to feelings of anxiety. She denies a history of smoking, routine alcohol use, high cholesterol, or diabetes. Her father had congestive heart failure and hypertension, and her mother had hypertension. 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 Review of Systems Const All systems reviewed & are unremarkable except as noted in HPI and below Denies weakness ENT Denies dizziness Card Denies chest pain, Denies chest pain with activity, Denies syncope, Denies rapid heart rate, Denies pedal edema, Denies edema, Denies leg edema, Denies lightheadedness, Reports palpitations, Reports dyspnea, Reports dyspnea on exertion and Denies orthopnea Resp Denies cough, Reports dyspnea and Reports dyspnea on exertion GI Denies hematochezia and Denies change in stool character Musc Denies abnormal gait, Denies muscle cramps, Denies muscle weakness, Denies numbness, Denies radiating pain into limb and Denies tingling Neuro Denies abnormal gait, Denies dizziness, Denies syncope, Denies numbness, Denies tingling and Denies weakness Endo Reports palpitations Physical Exam Vital Signs: Last Vital Signs Pulse 84 03/01/25 14:53 BP 138/78 03/01/25 14:53 BMI result Body Mass Index 38.7 Const General: cooperative, healthy appearing, comfortable and no acute distress Orientation/consciousness: patient oriented x3 Neck Neck: Yes normal visual inspection and Yes no JVD Resp Effort & Inspection: normal respiratory effort Auscultation: clear to auscultation bilaterally, no rales, no rhonchi and no wheezes Cardio Rate: regular rate Rhythm: regular rhythm Heart sounds: S1 normal heart sound present, S2 normal heart sound present, no gallops, no murmurs and no rubs Neuro General: patient oriented x3 Extrem General: Yes normal to inspection, No no pedal edema and No calf tenderness Psych Appearance: grossly normal Mental Status: mental status grossly normal Speech and movement: Normal speech and movement present Office Procedures EKG Details: Today, read by me, sinus rhythm, no acute ST or T-wave abnormalities, rate 84, QTC 439 milliseconds [id number], Complete Assessment & Plan Assessment & Plan (1) Dyspnea: Code(s): R06.00 - Dyspnea, unspecified Category: Medical Plan: Reports of dyspnea with exertion, different from asthma. She is not fluid overloaded on exam. EKG done today showing normal sinus rhythm, no acute ST or T-wave abnormalities, rate 84. Echocardiogram done 06/26/2023 showed EF 55-60%, diastolic function normal, no significant valve abnormalities. Her symptom of shortness of breath has occurred in the last few months, also with reports of chest tightness and heart palpitations. Will update echocardiogram. Will check an exercise stress echocardiogram. Plan to call her with the results. Cardiology follow-up 6-8 weeks, sooner if needed. (2) Asthma: Code(s): J45.909 - Unspecified asthma, uncomplicated Category: Medical Plan: Stable, followed by pulmonology. (3) Palpitations: Code(s): R00.2 - Palpitations Category: Medical Plan: Report of intermittent heart palpitations causing some concern. Will check a Holter monitor to assess for arrhythmia. (4) Hypertension: Code(s): I10 - Essential (primary) hypertension Category: Medical Plan: Blood pressure goal less than 130/80. Mildly elevated today at 138/78. No medication changes made at this time. (5) Obesity: Code(s): E66.9 - Obesity, unspecified Category: Medical Plan: Obesity can contribute to symptoms of shortness of breath with activity. She also may have some deconditioning as she does no routine exercise and does frequent standing/sitting at work. Plan I discussed with the patient her symptoms of chest tightness, shortness of breath, and palpitations. I explained that to evaluate her symptoms, particularly the chest tightness and shortness of breath with exertion, I am recommending a stress echocardiogram to ensure her coronary arteries are functioning well. We discussed that this would be a treadmill-based test and that we prefer it over a nuclear study to avoid radiation given her age, and she agreed she would be able to perform the exercise. I also recommended a 3-day Holter monitor to investigate her palpitations, explaining that her history of sleep apnea puts her at an increased risk for atrial fibrillation. I described the modern, wire-free sticker monitor and how to use it, and she consented to the test. I informed her that centralized scheduling will contact her to arrange these diagnostic tests. We arranged for a follow-up appointment in approximately 6-8 weeks to review the results in person, and she was informed that she would also receive a call with the results once they are available. Orders: Orders ECG 3 day holter monitor Today I10 - Essential (primary) hypertension, R00.2 - Palpitations, R06.00 - Dyspnea, unspecified CA echo stress exercise Today I10 - Essential (primary) hypertension, R00.2 - Palpitations, R06.00 - Dyspnea, unspecified CA echo transthoracic complete Today I10 - Essential (primary) hypertension, R00.2 - Palpitations, R06.00 - Dyspnea, unspecified Patient Instructions: - Continue taking your current medications as prescribed. - Continue wearing your compression socks, as they appear to be helping with your leg swelling. - We have ordered a stress echocardiogram, which involves walking on a treadmill, to check your heart. - We have also ordered a 3-day heart monitor to check for any irregular heart rhythms. This is a simple sticker you will wear on your chest. - The hospital's scheduling department will call you to set up these tests. - We will have a follow-up appointment in the office in 6-8 weeks to review the results. Patient was informed and verbally consented to the use of an ambient scribe for clinic note documentation during this visit. Visit time spent on chart review, interview, assessment, orders, documentation. Coding Level of Care Code New Pt Level 4 (48014) Add On Problem Visit Only Diagnoses Dyspnea R06.00 Asthma J45.909 Palpitations R00.2 Hypertension I10 Obesity E66.9 CPT Codes EKG - CPT: 04241-[id number], Complete ([id number]) Time Spent (min) 32
[2025-03-01 14:53] VITALS: BP 138/78; PULSE 84; BMI 38.7
--- OUTSIDE RECORDS SUMMARY | 2025-03-01 18:46 | XMS_ITS | Clinical Summary ---
Author Organization [employer] Address [address] [facility] [address] [place] [address] Care Team Providers Care Rn Radiation Oncology Name Role Phone Js Proctormargonatalee DENIS Primary Care Provider [phone] [phone] Allergies Active Allergy Reactions Criticality Noted Date Comments Estradiol-Levonorgestrel 08/05/2022 Other reaction(s): itching, redness Medications Vitamin D3 Super Strength 50 MCG (1999 UT) tablet Take by mouth in the morning. 11/03/19 22 Active Mimvey 1-0.5 MG tablet 06/11/19 23 Active Rimegepant Sulfate (Nurtec) 75 MG tablet dispersible 11/16/19 22 Active ALPRAZolam (Xanax) 0.25 MG tablet Take 0.25 mg by mouth if needed at bedtime. Active Elastic Bandages & Supports (TruForm Stockings 10-20mmHg) miscIndications :Bilateral leg edema To use daily prior to getting out of bed. 1 each 1 08/08/19 23 Active Elastic Bandages & Supports (TruForm Stockings 10-20mmHg) miscIndications :Bilateral leg edema 15/20 mm/Hg. Knee high. 1 each 08/08/19 23 Active albuterol (2.5 MG/3ML) 0.083% nebulizer solution Take 3 mL (2.5 mg) by nebulization every 4 (four) hours if needed for wheezing. 75 mL 11 01/29/20 23 Active azelastine (Astelin) 0.1 % nasal spray Administer 1 spray into each nostril 2 times daily. Use in each nostril as directed 30 mL 12 05/07/19 24 Active loratadine (Claritin) 10 MG tablet Take 1 tablet (10 mg) by mouth in the morning. 30 tablet 3 07/03/19 24 Active buPROPion XL (Wellbutrin XL) 150 MG 24 hr tablet TAKE 1 TABLET EVERY MORNING ALONG WITH THE 300 MG FOR A TOTAL DAILY DOSE OF 450 MG 06/10/19 24 Active Emgality 120 MG/ML auto-injector 120 MG SUBCUTANEOUSLY ONCE FOR 30 DAYS 08/21/19 24 Active naproxen (Naprosyn) 500 MG tabletIndicatio ns:Acute pain of left knee TAKE 1 TAB BY MOUTH WITH FOOD 2 TIMES DAILY X7 DAYS OR UNTIL PAIN LESSENS SUBSTANTIALLY. THEN TAKE 1 TAB EVERY 12 HOURS NEEDED FOR PAIN. 30 tablet 1 09/17/19 25 Active albuterol 108 (90 Base) MCG/ACT inhaler INHALE 2 PUFFS EVERY 4 HOURS NEEDED NEEDED 6.7 g 11 10/16/19 25 Active losartan (Cozaar) 50 MG tablet TAKE 1 TABLET BY MOUTH EVERY DAY 90 tablet 1 11/18/19 25 Active Semaglutide-Jh ght Management (Wegovy) 0.25 MG/0.5ML solution auto-injectorIn dications:Sever e obesity (CMS/HCC) ([facility]) Inject 0.25 mg subcutaneously once a week for weeks 1-4 2 mL 12/02/19 25 Active Active Problems Problem Noted Date Diagnosed Date Primary hypertension 07/03/2023 Anxiety 08/05/2022 Family history of breast cancer 08/05/2022 Depression 08/05/2022 Severe obesity (CMS/HCC) 08/05/2022 Non-rapid eye movement sleep arousal disorder, 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 Bipolar II disorder (CMS/HCC) 06/17/2022 Generalized anxiety disorder with panic attacks [...] Encounters Date Type Department Care Team Description 12/22/2024 8:30 AM EDT Telemedicine [facility] MED & PEDS [address] [place] [address] Yoli Nolen MD Primary hypertension (Primary Dx); Severe obesity (CMS/HCC) (HCC) 12/22/2024 Travel 12/21/2024 Telephone [facility] MED & PEDS [address] [place] [address] Yoli Nolen MD Chart Prep 12/14/2024 Telephone [facility] MEDICINE [address] [place], [place] [phone] Anni Nuñez RD Nutrition f/u appt 12/01/2024 8:30 AM EDT Telemedicine [facility] MED & PEDS [address] [place] [address] Yoli Nolen MD Primary hypertension (Primary Dx); Severe obesity (CMS/HCC); Asthma, unspecified asthma severity, unspecified whether complicated, unspecified whether persistent 12/01/2024 Telephone [facility] MED & PEDS [address] [place] [address] Yoli Nolen MD Prior Authorization 12/01/2024 Travel 11/30/2024 Telephone [facility] MED & PED[facility] [address] [place] [address] Yoli Nolen MD Chart Prep from Last 3 Months Immunizations Immunization Administration Dates Next Due INFLUENZA VACCINE QUADRIVALE NT RECOMBINANT PRESERVATIVE FREE RIV4 12/20/2019 Influenza Injectable Quadriv alant Preservative Free IIV4 MDCK 01/18/2022,02/26/2021 Influenza injectable quadriv alent IIV4 with preservative 03/02/2018,01/15/2017,01/26/2016 Influenza, IIV3, injectable 02/07/2014 Influenza, Split (incl. yu fied surface antigen) 04/21/2012 Influenza, seasonal, injecta ble, preservative free 03/15/2024 Tdap 05/07/2023,01/02/2010 Social History Tobacco Use Types [...] 11/18/2024 4:42 PM EDT Plan of Treatment Health Maintenance Due [...] 11/05/2023 05/07/2023, 024 Tobacco Screening 09/11/2024 09/12/2023 COVID-19 Vaccine ( season) 2024 03/15/2024, 01/18/2022, 02/26/2021, Additional history exists Influenza Vaccine (#1) 2024 , 01/18/2022, 02/26/2021, Additional history exists Mammogram 11/26/2024 [...] IMG BI PROCEDURES Final R esult * HM PAP/HPV (08/04/2023) Pap Smear 1. NILM 1. NILM HPV Not Detected Undetected, Indeterminat e, Quantitative , Not Detected Historical Provider HEALTH MAINTENANCE Edited Result - Final * (ABNORMAL) Lipid Panel, Standard (05/07/2023 10:19 AM EST) Triglycerides 88 <150 mg/dL [facility] Comment:Desirable Triglyceri de: less than 150 mg/dLBorderline High Triglyceride 150-199 mg/dLHigh Triglyceride: 200-499 mg/dLVery High Triglyceride: greater than or equal to 5OO mg/dL Cholesterol 198 <200 mg/dL [facility] Comment:Desirable Cholestero l: less than 200 mg/dLBorderline High Cholesterol: 200-239 mg/dLHigh Cholesterol: greater than 239 mg/dL LDL Cholesterol Calculated 131(H) <100 mg/dL [facility] Comment:Desirable LDL: less than 100 mg/dLNear Optimal/Above Optimal LDL: 110- 129 mg/dLBorderline High LDL: 130-159 mg/dLHigh LDL: 160-189 mg/dLVery High LDL: greater than or equal to 190 mg/dL HDL Cholesterol 50 >40 mg/dL [facility] Comment:Desirable HDL: great er than 40 mg/dL Note: This HDL assay may give artificially low results in patients with liver disease. Blood Venous blood specimen / Unknown 05/07/2023 10:19 AM EST 05/07/2023 2:37 PM EST us Yoli Nolen MD LAB BLOOD ORDERABLES Final Resul t [facility] [address] [place] [address] [phone] * Hm Colonoscopy (01/01/2021) Colonoscopy Normal Normal Narrative Farzana Castro - 01/01/2021 Recommended 10 years. See See legacy note on 01/01/2021 Historical Provider HEALTH MAINTENANCE Final Result from Last 3 Months or Most Recently Relevant to Health Maintenance Insurance [facility] Care Teams Rn Radiation Oncology Relationship Specialty Start Date End Date Ruslan Proctor CNP [address] [facility] [place] [address] PCP - General Family Medicine 01/11/25
--- OUTSIDE RECORDS SUMMARY | 2025-03-01 18:46 | XMS_ITS | Encounter Summary ---
Author Organization [employer] Address [address] [place] [address] Care Team Providers Care Agility Instructor Name Role Phone Yoli Nolen MD Primary Care Provider Ruslan Proctor CNP Primary Care Provider [phone] Reason for Visit * Reason Onset Date Comments Appointment Request 03/18/2023 Encounter Details Date Type Department Care Team ([facility] Contact Info) Description 03/18/2023 Telephone [facility] MED & PEDS [address] [place] [address] Yoli Nolen MD [address] [place] [address] Appointment Request Social History Tobacco Use Types [...] @ 10:15 am. Please contact pt @ [phone] documented in this encounter Plan of Treatment Not on file documented as of this encounter Visit Diagnoses Not on filedocumented in this encounter Care Teams Agility Instructor Relationship Specialty Start Date End Date Yoli Nolen MD [address] [place] [address] PCP - General Family Medicine 03/24/13 01/10/25 Ruslan Proctor CNP [address] [place] [address] PCP - General Family Medicine 01/11/25 documented as of this encounter
--- OUTSIDE RECORDS SUMMARY | 2025-03-01 18:46 | XMS_ITS | Encounter Summary ---
Author Organization [employer] Address [address] [facility] [address] [place] [address] Care Team Providers Care Convalescent Sitter Name Role Phone Yoli Nolen MD Primary Care Provider [phone] Ruslan Proctor CNP Primary Care Provider [phone] Reason for Visit * Reason Comments Med Refill Encounter Details Date Type Department Care Team ([facility] st Contact Info) Description 10/29/2022 Refill [facility] MED & PEDS [address] [place], [place] [phone] Yoli Nolen MD [address] [place], [place] [phone] Social History Tobacco Use Types Packs/Day Years [...] on filedocumented in this encounter Care Teams Convalescent Sitter Relationship Specialty Start Date End Date Yoli Nolen MD [address] [place] [address] PCP - General Family Medicine 03/24/13 01/10/25 Ruslan Proctor CNP [address] [place] [address] PCP - General Family Medicine 01/11/25 documented as of this encounter
--- OUTSIDE RECORDS SUMMARY | 2025-03-01 18:47 | XMS_ITS | Encounter Summary ---
Author Organization [employer] Address [address] [facility] [address] [place] [address] Care Team Providers Care Customer Service Sales Associate Name Role Phone Yoli Nolen MD Primary Care Provider [phone] Ruslan Proctor CNP Primary Care Provider [phone] Encounter Details Date Type Department Care Team (Late st Contact Info) Description 12/01/2023 Orders Only [facility] [address] [place], [place] [phone] Provider, MD Silvia Social History Tobacco Use [...] of this encounter Care Teams Customer Service Sales Associate Relationship Specialty Start Date End Date Yoli Nolen MD [address] [place] [address] PCP - General Family Medicine 03/24/13 01/10/25 Ruslan Proctor CNP [address] [place] [address] PCP - General Family Medicine 01/11/25 documented as of this encounter
--- OUTSIDE RECORDS SUMMARY | 2025-03-01 18:47 | XMS_ITS | Encounter Summary ---
Author Organization [employer] Address [address] [facility] [address] [place] [address] Care Team Providers Care Light Coil Winder Name Role Phone Yoli Nolen MD Primary Care Provider Ruslan Proctor CNP Primary Care Provider [phone] Reason for Visit * Reason Comments Med Refill Encounter Details Date Type Department Care Team ([facility] st Contact Info) Description 07/14/2022 Refill [facility] MED & PEDS [address] [place] [address] Adam Queen MD [address] [place] [address] Social History Tobacco Use Types Packs/Day Years [...] on filedocumented in this encounter Care Teams Light Coil Winder Relationship Specialty Start Date End Date Yoli Nolen MD [address] [place] [address] PCP - General Family Medicine 03/24/13 01/10/25 Ruslan Proctor CNP [address] [place] [address] PCP - General Family Medicine 01/11/25 documented as of this encounter
== END 2025-03-01 15:30 | disposition home or self-care (01) ==
LOC: HO.HCS 14:30
PROVIDERS: PCP Student in an Organized Health Care Education/Training Program; Visit Provider Nurse Practitioner Family
DX: R06.00 Dyspnea, unspecified (principal); J45.909 Unspecified asthma, uncomplicated; R00.2 Palpitations; I10 Essential (primary) hypertension; E66.9 Obesity, unspecified
CPT/HCPCS: 93010; 99204

== ENCOUNTER → 2025-03-01 14:29 | Outpatient (BNVA) | payer OTHER, SELFPAY | PROVIDERS: PCP Student in an Organized Health Care Education/Training Program; Visit Provider Nurse Practitioner Family | DX: J45.909 Unspecified asthma, uncomplicated (principal); R06.00 Dyspnea, unspecified; R00.2 Palpitations; I10 Essential (primary) hypertension; E66.9 Obesity, unspecified; Z79.899 Other long term (current) drug therapy | CPT/HCPCS: 93005 ==

== ENCOUNTER 2025-03-15 11:23 | Outpatient (REF) | payer OTHER, SELFPAY ==
--- OUTSIDE RECORDS SUMMARY | 2025-03-15 10:30 | XMS_ITS | Encounter Summary ---
Author Organization [employer] Address [address] [facility] 7[address] [place] [address] Care Team Providers Care Remittance Clerk Name Role Phone Ruslan Proctor CNP Primary Care Provider [phone] Reason for Visit * Reason Comments Cough Encounter Details Date Type Department Care Team ([facility] st Contact Info) Description 03/15/2025 10:30 AM EST Office Visit [facility] MED & PEDS [address], [place] [phone] Berta Madsen MD [address] [place] [address] Moderate persistent asthma with exacerbation (Primary Dx); Acute cough Social History Tobacco Use Types Packs/Day Years [...] Orientation Straight 01/14/2022 10 :16 AM EDT Travel History Travel Start Travel End [place] 03/05/2025 2025 documented as of this encounter Last Filed Vital Signs Vital Sign Reading Time Taken Comments Blood Pressure 144/76 03/15/2025 10:37 AM EST Pulse 92 03/15/2025 10:37 AM EST Temperature 36.8 C (98.2 F) 03/15/2025 10:37 AM EST Respiratory Rate 21 03/15/2025 10:37 AM EST Oxygen Saturation 97% 03/15/2025 10:37 AM EST Inhaled Oxygen Concentration - - Weight - - Height - - Body Mass Index - - documented in this encounter Progress Notes * Berta Madsen MD - 03/15/2025 10:30 AM EST SUBJECTIVE Jeanine Chau is a 45 y.o. female who presents for Cough. Cough Associated symptoms include chills and shortness of breath. Jeanine Chau, 45-year-old female - Onset of illness during recent trip to [place], symptoms started 26 days prior to encounter - Initial symptoms included asthma exacerbation, fever, chills, congestion, and green mucus - Progression to head congestion, persistent stuffiness, fatigue, and body aches - Fever up to 103??F in the morning, reduced to 101??F after Tylenol - Chest tightness and pain with coughing, attributed to asthma - Throat irritation - Asthma has been well-controlled this year, first illness of the season - Family members also ill with similar symptoms - Menopausal, last menstrual period in summer 2024 - History of asthma, receives asthma shots every 2 weeks, next dose due on day of encounter - Prior use of DayQuil, NyQuil, Tylenol, and prednisone for symptom management Problem List[1] Allergies[2] Medications Ordered Prior to Encounter[3] Review of Systems Constitutional: Positive for chills and fatigue. Negative for diaphoresis and unexpected weight change. Respiratory: Positive for cough, chest tightness and shortness of breath. Cardiovascular: Negative for leg swelling. Gastrointestinal: Negative for anal bleeding and blood in stool. Genitourinary: Negative for enuresis and flank pain. Musculoskeletal: Negative for back pain, gait problem and joint swelling. OBJECTIVE Vitals: 03/15/25 1037 BP: (!) 144/76 BP Location: Left arm Patient Position: Sitting BP Cuff Size: Adult long Pulse: 92 Resp: 21 Temp: 98.2 ??F (36.8 ??C) TempSrc: Oral SpO2: 97% Physical Exam Constitutional: General: She is not in acute distress. Appearance: Normal appearance. She is obese. She is ill-appearing. She is not toxic-appearing or diaphoretic. Cardiovascular: Rate and Rhythm: Normal rate. Pulmonary: Effort: Pulmonary effort is normal. Breath sounds: Normal breath sounds. Neurological: General: No focal deficit present. Mental Status: She is alert. Psychiatric: Mood and Affect: Mood normal. Assessment/Plan Assessment/Plan Diagnoses and all orders for this visit: Moderate persistent asthma with exacerbation - CBC auto differential; Future Acute cough - POCT Rapid Covid-19 BinaxNOW - POCT Rapid Influenza A FLOYD ID NOW - POCT Rapid Influenza B FLOYD ID NOW - SARS-CoV-2 RNA, Influenza A/B, and RSV RNA, Ql NAAT - XR Chest 2 Views; Future - predniSONE (Deltasone) 20 MG tablet; Take 1 tablet (20 mg) by mouth Once per day for 5 days. - azithromycin (Zithromax) 250 MG tablet; 500 mg on day 1, 250 mg day 2 to 5 Moderate persistent asthma with exacerbation: - Asthma exacerbation triggered by viral infection. - Prescribed short course of prednisone. Continue asthma shots as scheduled. Ordered chest X-ray. Ordered CBC to check white blood cell count. Supportive care recommended: rest at home, maintain adequate hydration, continue DayQuil/NyQuil, use Tylenol for pain. - Risks and side effects: Discussed possible side effects of prednisone including jitteriness and elevated blood pressure. Acute cough: - Acute cough likely secondary to viral infection. - Prescribed azithromycin to be started only if symptoms persist after 3-4 days. Supportive care recommended: rest at home, maintain adequate hydration, continue DayQuil/NyQuil, use Tylenol for pain. This note was drafted using Ambient (AI) technology. The patient/patient's guardian has been informed and has consented to the use of this technology: Yes [1] Patient Active Problem List Diagnosis Asthma Bipolar II disorder ([facility]) ([facility]) Generalized anxiety disorder with panic attacks Migraines Anxiety Family history of breast cancer Depression Severe obesity ([facility]) ([facility]) Non-rapid eye movement sleep arousal disorder, sleep terror type Primary hypertension [2] Allergies Allergen Reactions Estradiol-Levonorgestrel Other reaction(s): itching, redness [3] Current Outpatient Medications on File Prior to Visit Medication Sig Dispense Refill albuterol (2.5 MG/3ML) 0.083% nebulizer solution Take 3 mL (2.5 mg) by nebulization every 4 (four) hours if needed for wheezing. 75 mL 11 albuterol 108 (90 Base) MCG/ACT inhaler INHALE 2 PUFFS EVERY 4 HOURS NEEDED NEEDED 6.7 g 11 ALPRAZolam (Xanax) 0.25 MG tablet Take 0.25 mg by mouth if needed at bedtime. azelastine (Astelin) 0.1 % nasal spray Administer 1 spray into each nostril 2 times daily. Use in each nostril as directed 30 mL 12 buPROPion XL (Wellbutrin XL) 150 MG 24 hr tablet TAKE 1 TABLET EVERY MORNING ALONG WITH THE 300 MG FOR A TOTAL DAILY DOSE OF 450 MG Elastic Bandages & Supports (TruForm Stockings 10-20mmHg) misc To use daily prior to getting out of bed. 1 each 1 Elastic Bandages & Supports (TruForm Stockings 10-20mmHg) misc 15/20 mm/Hg. Knee high. 1 each 1 Emgality 120 MG/ML auto-injector 120 MG SUBCUTANEOUSLY ONCE FOR 30 DAYS loratadine (Claritin) 10 MG tablet Take 1 tablet (10 mg) by mouth in the morning. 30 tablet 3 losartan (Cozaar) 50 MG tablet TAKE 1 TABLET BY MOUTH EVERY DAY 90 tablet 1 Mimvey 1-0.5 MG tablet naproxen (Naprosyn) 500 MG tablet TAKE 1 TAB BY MOUTH WITH FOOD 2 TIMES DAILY X7 DAYS OR UNTIL PAINLESSENS SUBSTANTIALLY. THEN TAKE 1 TAB EVERY 12 HOURS NEEDED FOR PAIN. 30 tablet 1 Rimegepant Sulfate (Nurtec) 75 MG tablet dispersible Semaglutide-Weight Management (Wegovy) 0.25 MG/0.5ML solution auto-injector Inject 0.25 mg subcutaneously once a week for weeks 1-4 2 mL 3 Vitamin D3 Super Strength 50 MCG (2000 UT) tablet Take by mouth in the morning. No current facility-administered medications on file prior to visit. documented in this encounter Plan of Treatment Scheduled Orders Name Type Priority Associated Diagnoses Orde r Schedule SARS-CoV-2 RNA, Influenza A/B, and RSV RNA, Ql NAAT Microbiology Routine Acute cough Ordered: 03/15/2025 XR Chest 2 Views Imaging Routine Acute cough Expected: 03/15/2025, Expires: 03/15/2026 documented as of this encounter Procedures Procedure Name Priority Date/Time Associated Diagnosis Comments CBC WITH AUTO DIFFERENTIAL Routine 03/15/2025 11:24 AM EST Moderate persistent asthma with exacerbation POCT INFLUENZA A (ID NOW RAPID MOLECULAR) Routine 03/15/2025 11:10 AM EST Acute cough POCT INFLUENZA B (ID NOW RAPID MOLECULAR) Routine 03/15/2025 11:09 AM EST Acute cough POCT RAPID COVID ANTIGEN Routine 03/15/2025 11:08 AM EST Acute cough documented in this encounter Results * (ABNORMAL) CBC auto differential (03/15/2025 11:24 AM EST) Pathologist [facility] White Blood Count 7.1 4.8 - 10.8 X10*3/uL [facility] Red Blood Count 4.14(L) 4.20 - 5.50 X10*6/uL [facility] Hemoglobin 11.9(L) 12.0 - 16.0 g/dl [facility] Hematocrit 37.4 37.0 - 47.0 % [facility] Mean Corpuscular Volume 90.3 80.0 - 98.0 fL [facility] Mean Corpuscular Hemoglobin 28.7 27.0 - 33.0 pg [facility] Mean Corpuscular HGB Conc 31.8 31.0 - 35.0 g/dl [facility] Red Cell Distribution Width 13.6 11.0 - 16.0 % [facility] Platelet Count 268 160 - 400 X10*3/uL [facility] Mean Platelet Volume 10.9 9.4 - 12.3 fL [facility] Neutrophils Percent Auto 65.6 45 - 73 % [facility] Imm Gran Pct Auto 0.3 0.0 - 0.4 % [facility] Lymphocytes Percent Auto 24.1 20 - 40 % [facility] Monocytes Percent Auto 9.4 2 - 11 % [facility] Eosinophils Percent Auto 0.3 0 - 4 % [facility] Basophils Percent Auto 0.3 0 - 2 % [facility] NRBC Pct Auto 0.0 0.0 - 0.2 /100WBC [facility] Neutrophils Absolute Auto 4.7 2.0 - 8.3 x10*3/uL [facility] Imm Gran Abs Auto 0.02 0.00 - 0.03 X10*3/uL [facility] Lymphocytes Absolute Auto 1.7 1.2 - 4.9 X10*3/uL [facility] Monocytes Absolute Auto 0.7 0.1 - 1.2 X10*3/uL [facility] Eosinophils Absolute Auto 0.0 0.0 - 0.4 X10*3/uL [facility] Basophils Absolute Auto 0.0 0.0 - 0.2 X10*3/uL [facility] NRBC Abs Auto 0.000 0.0 - 0.012 X10*3/uL [facility] Blood Venous blood specimen / Unknown 03/15/2025 11:24 AM EST 03/15/2025 3:06 PM EST us Berta Madsen MD LAB BLOOD ORDERABLES Final Result Performing Organization Address City/[facility]/ZIP Co de Phone Number [facility] [address] [place] [phone] * POCT Rapid Influenza A FLOYD ID NOW (03/15/2025 11:10 AM EST) Influenza A Negative Negative, Indeterminate [facility] QC Media Lot # [id number] [facility] Lot# Expiration Date , [facility] Swab 03/15/2025 11:1 0 AM EST us Berta Madsen MD POINT OF CARE TEST ENTER/ED IT ORDERABLES Final Result Performing Organization Address [facility] Co de Phone Number [facility] [address] [place] [phone] * POCT Rapid Influenza B FLOYD ID NOW (03/15/2025 11:09 AM EST) Influenza B Negative Negative, Indeterminate [facility] QC Media Lot # [id number] [facility] Lot# Expiration Date , [facility] Swab 03/15/2025 11:0 9 AM EST us Berta Madsen MD POINT OF CARE TEST ENTER/ED IT ORDERABLES Final Result Performing Organization Address [facility] Co de Phone Number [facility] [address] [place] [phone] * POCT Rapid Covid-19 BinaxNOW (03/15/2025 11:08 AM EST) Rapid COVID Ag Negative QC Media Lot # [id number] Lot# Expiration Date [id number] Swab 03/15/2025 11:0 8 AM EST us Berta Madesn MD POINT OF CARE TEST ENTER/ED IT ORDERABLES Final Result documented in this encounter Visit Diagnoses Diagnosis Moderate persistent asthma with exacerbation- Primary Unspecified asthma, with exacerbation Acute cough documented in this encounter Additional Health Concerns Assessment Noted Time PHQ-9 Depression Total Score: 9 05/07/19 24 9:47 AM EST documented as of this encounter Care Teams Remittance Clerk Relationship Specialty Start Date End Date Ruslan Proctor CNP [address] [place] [phone] PCP - General Family Medicine 01/11/25 documented as of this encounter
[2025-03-15 15:09] LABS: MANUAL DIFF FLAG NO
[2025-03-15 15:16] LABS: Hematocrit 37.4 % (37.0-47.0); Hemoglobin 11.9 g/dl (12.0-16.0); Imm Gran Abs Auto 0.02 X10*3/uL (0.00-0.03); Imm Gran Pct Auto 0.3 % (0.0-0.4); Lymphocytes Absolute Auto 1.7 X10*3/uL (1.2-4.9); Mean Corpuscular HGB Conc 31.8 g/dl (31.0-35.0); Mean Corpuscular Hemoglobin 28.7 pg (27.0-33.0); Mean Corpuscular Volume 90.3 fL (80.0-98.0); NRBC Abs Auto 0.000 X10*3/uL (0.0-0.012); NRBC Pct Auto 0.0 /100WBC (0.0-0.2); Platelet Count 268 X10*3/uL (160-400); Red Blood Count 4.14 X10*6/uL (4.20-5.50); White Blood Count 7.1 X10*3/uL (4.8-10.8)
--- OUTSIDE RECORDS SUMMARY | 2025-03-15 15:26 | XMS_ITS | Clinical Summary ---
Author Organization [employer] Address [address] [facility] [address] [place] [address] Care Team Providers Care Hall Tender Name Role Phone Js Proctormargonatalee DENIS Primary Care Provider [phone] Allergies Active Allergy Reactions Criticality Noted Date [...] 0.25 MG/0.5ML solution auto-injectorIn dications:Sever e obesity ([facility]) ([facility]) Inject 0.25 mg subcutaneously once a week for weeks 1-4 2 mL 3 12/02/19 25 Active predniSONE (Deltasone) 20 MG tabletIndicatio ns:Acute cough Take 1 tablet (20 mg) by mouth Once per day for 5 days. 5 tablet 03/15/20 25 026 Active azithromycin (Zithromax) 250 MG tabletIndicatio ns:Acute cough 500 mg on day 1, 250 mg day 2 to 5 6 tablet 03/15/20 25 Active Active Problems Problem Noted Date Diagnosed Date Primary hypertension 07/03/2023 Anxiety 08/05/2022 Family history of breast cancer 08/05/2022 Depression 08/05/2022 Severe obesity (CMS/HCC) 08/05/2022 Non-rapid eye movement sleep arousal disorder, 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 Bipolar II disorder ([facility]/HCC) 06/17/2022 Generalized anxiety disorder with panic attacks [...] Encounters Date Type Department Care Team Description 03/15/2025 10:30 AM EST Office Visit [facility] MED & PEDS [address] [place] [address] Berta Madsen MD Moderate persistent asthma with exacerbation (Primary Dx); Acute cough 03/15/2025 Travel 03/15/2025 Telephone [facility] [address] [place] [address] Ruslan Proctor CNP Nurse Triage 12/22/2024 8:30 AM EDT Telemedicine [facility] MED [facility] PEDS [address] [place] [address] Yoli Nolen MD Primary hypertension (Primary Dx); Severe obesity (CMS/HCC) (HCC) 12/22/2024 Travel 12/21/2024 Telephone [facility] CH[facility] MED & PEDS [address] [place] [address] Yoli Nolen MD Chart Prep 12/14/2024 Telephone [facility] MEDICINE [address] [place], [place] [phone] Anni Nuñze RD Nutrition f/u appt from Last 3 Months Immunizations Immunization Administration [...] your housing situation today? I have jaspal sing 12/01/[address] you li [...] EDT Travel History Travel Start Travel End [place] 03/05/2025 2025 Last Filed Vital Signs Vital Sign Reading Time Taken Comments Blood Pressure 144/76 03/15/2025 10:37 AM EST Pulse 92 03/15/2025 10:37 AM EST Temperature 36.8 C (98.2 F) 03/15/2025 10:37 AM EST Respiratory Rate 21 03/15/2025 10:37 AM EST Oxygen Saturation 97% 03/15/2025 10:37 AM EST Inhaled Oxygen Concentration - - Weight 117 [...] PCV) 1997 Depression Monitoring 11/05/2023 05/07/2023, 024 COVID-19 Vaccine ( season) 2024 03/15/2024, 01/18/2022, 02/26/2021, Additional history exists Influenza Vaccine (#1) 2024 , 01/18/2022, 02/26/2021, Additional history exists Mammogram 11/26/2024 11/27/2023 Disability Screening 07/26/2025 07/26/2024 Alcohol/Substance Use Screening 12/01/2025 12/01/2024 SDOH Screening 12/01/2025 12/01/2024 Tobacco Screening 03/15/2026 03/15/2025 Zoster Vaccines (1 of 2) 2028 Lipid [...] Routine 03/15/2025 11:08 AM EST Acute cough BI MAMMOGRAM SCREENING BILATERAL Routine 11/27/2023 11:00 AM EDT HM PAP/HPV Routine 08/04/2023 LIPID PANEL, STANDARD Routine 05/07/2023 10:19 AM EST Severe obesity (CMS/HCC) HM COLONOSCOPY Routine 01/01/2021 from Last 3 Months or Most Recently Relevant to Health Maintenance Results * (ABNORMAL) CBC auto differential (03/15/2025 11:24 AM EST) White Blood Count 7.1 4.8 - 10.8 X10*3/uL [facility] Red Blood Count 4.14(L) 4.20 - 5.50 X10*6/uL [facility] Hemoglobin 11.9(L) 12.0 - 16.0 g/dl [facility] Hematocrit 37.4 37.0 - 47.0 % [facility] Mean Corpuscular Volume 90.3 80.0 - 98.0 fL [facility] Mean Corpuscular Hemoglobin 28.7 27.0 - 33.0 pg [facility] Mean Corpuscular HGB Conc 31.8 31.0 - 35.0 g/dl [facility] Red Cell Distribution Width 13.6 11.0 - 16.0 % [facility] Platelet Count 268 160 - 400 X10*3/uL [facility] Mean Platelet Volume 10.9 9.4 - 12.3 fL [facility] Neutrophils Percent Auto 65.6 45 - 73 % [facility] Imm Gran Pct Auto 0.3 0.0 - 0.4 % [facility] Lymphocytes Percent Auto 24.1 20 - 40 % [facility] Monocytes Percent Auto 9.4 2 - 11 % [facility] Eosinophils Percent Auto 0.3 0 - 4 % [facility] Basophils Percent Auto 0.3 0 - 2 % [facility] NRBC Pct Auto 0.0 0.0 - 0.2 /100WBC [facility] Neutrophils Absolute Auto 4.7 2.0 - 8.3 x10*3/uL [facility] Imm Gran Abs Auto 0.02 0.00 - 0.03 X10*3/uL [facility] Lymphocytes Absolute Auto 1.7 1.2 - 4.9 X10*3/uL [facility] Monocytes Absolute Auto 0.7 0.1 - 1.2 X10*3/uL [facility] Eosinophils Absolute Auto 0.0 0.0 - 0.4 X10*3/uL [facility] Basophils Absolute Auto 0.0 0.0 - 0.2 X10*3/uL [facility] NRBC Abs Auto 0.000 0.0 - 0.012 X10*3/uL [facility] Blood Venous blood specimen / Unknown 03/15/2025 11:24 AM EST 03/15/2025 3:06 PM EST us Berta Madsen MD LAB BLOOD ORDERABLES Final Result [facility] [address] [place], [place] [phone] * POCT Rapid Influenza A FLOYD ID NOW (03/15/2025 11:10 AM EST) Influenza A Negative Negative, Indeterminate [facility] QC Media Lot # [id number] [facility] Lot# Expiration Date [id number] [facility] Swab 03/15/2025 11:1 0 AM EST us Berta Madsen MD POINT OF CARE TEST ENTER/ED IT ORDERABLES Final Result Performing Organization Address [facility]/ZIP Co de Phone Number [facility] [address] [place] [phone] * POCT Rapid Influenza B FLOYD ID NOW (03/15/2025 11:09 AM EST) Influenza B Negative Negative, Indeterminate [facility] QC Media Lot # [id number] [facility] Lot# Expiration Date [id number] [facility] Swab 03/15/2025 11:0 9 AM EST us Berta Madsen MD POINT OF CARE TEST ENTER/ED IT ORDERABLES Final Result Performing Organization Address [facility] Co de Phone Number [facility] [address] [place] [phone] * POCT Rapid Covid-19 BinaxNOW (03/15/2025 11:08 AM EST) Rapid COVID Ag Negative QC Media Lot # [id number] Lot# Expiration Date 822,026 Swab 03/15/2025 11:0 8 AM EST us Berta Madsen MD POINT OF CARE TEST ENTER/ED IT ORDERABLES Final Result * BI Mammogram Screening Bilateral (11/27/2023 11:00 [...] 10:19 AM EST) Triglycerides 88 <150 mg/dL [facility] Comment:Desirable Triglyceri de: less than 150 mg/dLBorderline High Triglyceride 150-199 mg/dLHigh Triglyceride: 200-499 mg/dLVery High Triglyceride: greater than or equal to 5OO mg/dL Cholesterol 198 <200 mg/dL [facility] Comment:Desirable Cholestero l: less than 200 mg/dLBorderline High Cholesterol: 200-239 mg/dLHigh Cholesterol: greater than 239 mg/dL LDL Cholesterol Calculated 131(H) <100 mg/dL [facility] Comment:Desirable LDL: less than 100 mg/dLNear Optimal/Above Optimal LDL: 110- 129 mg/dLBorderline High LDL: 130-159 mg/dLHigh LDL: 160-189 mg/dLVery High LDL: greater than or equal to 190 mg/dL HDL Cholesterol 50 >40 mg/dL [facility] Comment:Desirable HDL: great er than 40 mg/dL Note: This HDL assay may give artificially low results in patients with liver disease. Blood Venous blood specimen / Unknown 05/07/2023 10:19 AM EST 05/07/2023 2:37 PM EST Yoli Nolen MD LAB BLOOD ORDERABLES Final Resul t [facility] [address] [place] [phone] * Hm Colonoscopy (01/01/2021) Colonoscopy Normal Normal Narrative Farzana Castro - 01/01/2021 Recommended 10 years. See See legacy note on 01/01/2021 Silvia Provider HEALTH MAINTENANCE Final Result from Last 3 Months or Most Recently Relevant to Health Maintenance Insurance [facility] [employer] Care Teams Hall Tender Relationship Specialty Start Date End Date Ruslan Proctor CNP [address] [place] [address] [place]YAL [phone] PCP - General Family Medicine 01/11/25
--- OUTSIDE RECORDS SUMMARY | 2025-03-15 15:26 | XMS_ITS | Encounter Summary ---
Author Organization [employer] Address [address] [facility] [address] [place] [address] Care Team Providers Care Ferry Captain Name Role Phone Yoli Nolen MD Primary Care Provider [phone] Ruslan Proctor CNP Primary Care Provider [phone] Encounter Details Date Type Department Care Team (Late st Contact Info) Description 12/01/2023 Orders Only [facility] [address] [place], [place] [phone] Provider, MD Silvia Social History Tobacco Use [...] EDT Travel History Travel Start Travel End [place] 03/05/2025 2025 documented as of this encounter Plan of [...] documented as of this encounter Care Teams Ferry Captain Relationship Specialty Start Date End Date Yoli Nolen MD [address] [place] [address] PCP - General Family Medicine 03/24/13 01/10/25 Ruslan Proctor CNP [address] [place] [address] PCP - General Family Medicine 01/11/25 documented as of this encounter
--- OUTSIDE RECORDS SUMMARY | 2025-03-15 15:26 | XMS_ITS | Encounter Summary ---
Author Organization [employer] Address [address] [facility] 7t [place] [address] Care Team Providers Care Renewable Energy Division Manager Name Role Phone Ruslan Proctor CNP Primary Care Provider [phone] Reason for Visit * Reason Onset Date Comments Nurse Triage 03/15/2025 Encounter Details Date Type Department Care Team ([facility] st Contact Info) Description 03/15/2025 Telephone [facility] [address] [place], [place] [id number] Ruslan Proctor CNP [address] [place] [address] Nurse Triage Social History Tobacco Use Types Packs/Day Years [...] EDT Travel History Travel Start Travel End [place] 03/05/2025 2025 documented as of this encounter Miscellaneous Notes * Telephone Encounter - Ofelia Arrington RN - 03/15/2025 9:23 AM EST called pt to triage, spoke to pt. pt states several days duration of congestion, cough, sore throat, headache, chest tightness, and fatigue. pt states the whole family is now sick and they drove all the way home from [place]. pt denies severe or sustained sob, vomiting, diarrhea, or other associated symptoms. pt has inhaler and has been using her nebulizer to control intermittent wheezing. given appt today with [facility] provider at 10:30 for exam. advised home care: rest, fluids, steam, humidifier, warm saltwater gargles, nebulizer as needed, monitor temperature, OTC as needed, and call back if worsening or new concerns. pt understands and agrees with plan. Protocol Used: Sinus Pain or Congestion (Adult) Protocol-Based Disposition: See in Office or Video Visit Today or Tomorrow Video visit offer not recorded Positive Triage Question: * Patient wants to be seen * All higher-acuity triage questions were negative. Care Advice Discussed: * Reassurance and Education - Colds and Sinus Congestion * For a Runny Nose - Blow Your Nose * Nasal Washes for a Stuffy Nose * Nasal Washes - Gftt-Lj-Damr Instructions * How to Make Saline (Salt Water) Nasal Wash * Hydration * Expected Course * Reasons To Call Back - Severe pain lasts over 2 hours after pain medicine - Sinus pain lasts over 1 day after using nasal washes - Sinus congestion (fullness) lasts over 10 days - Fever lasts over 3 days - You become worse * Telephone Encounter - Tate Kwong - 03/15/2025 9:21 AM EST Tc from pt returning call regarding message prior. * Telephone Encounter - Peter Rivers - 03/15/2025 8:35 AM EST Symptoms: Cough, Chest Congestion Outcome: Schedule an urgent appointment (within 1 hour) or talk to a nurse or provider soon Reason: Wheezing (high-pitched whistling sound) The caller accepted this outcome. Contact pt at [phone] documented in this encounter Plan of Treatment Not on file documented as of this encounter Visit Diagnoses Not on filedocumented in this encounter Additional Health Concerns Assessment Noted Time PHQ-9 Depression Total Score: 9 05/07/19 24 9:47 AM EST documented as of this encounter Care Teams Renewable Energy Division Manager Relationship Specialty Start Date End Date Ruslan Proctor CNP [address] [place] [address] PCP - General Family Medicine 01/11/25 documented as of this encounter
--- OUTSIDE RECORDS SUMMARY | 2025-03-15 15:26 | XMS_ITS | Encounter Summary ---
Author Organization [employer] Address [address] [facility] [address] [place] [address] Care Team Providers Care Course Developer Name Role Phone Yoli Nolen MD Primary Care Provider Ruslan Proctor CNP Primary Care Provider [phone] Reason for Visit * Reason Comments Med Refill Encounter Details Date Type Department Care Team ([facility] st Contact Info) Description 10/29/2022 Refill [facility] & PEDS [address] [place], [place] [phone] Yoli Nolen MD [address] [place], [place] [phone] Social History Tobacco Use Types Packs/Day Years [...] EDT Travel History Travel Start Travel End [place] 03/05/2025 2025 documented as of this encounter Plan of Treatment Not on file documented as of this encounter Visit Diagnoses Not on filedocumented in this encounter Care Teams Course Developer Relationship Specialty Start Date End Date Yoli Nolen MD [address] [place] [id number] PCP - General Family Medicine 03/24/13 01/10/25 Ruslan Proctor CNP [address] [place] [id number] PCP - General Family Medicine 01/11/25 documented as of this encounter
--- OUTSIDE RECORDS SUMMARY | 2025-03-15 15:26 | XMS_ITS | Encounter Summary ---
Author Organization [employer] Address [address] [facility] [address] [address] [place] [address] Care Team Providers Care Biology Professor Name Role Phone Ruslan Proctor CNP Primary Care Provider [phone] Encounter Details Date Type Department Care Team (Latest Contact Info) Description 03/15/2025 Travel Social History Tobacco Use Types Packs/Day [...] EDT Travel History Travel Start Travel End [place] 03/05/2025 2025 documented as of this encounter Plan of Treatment Not on file documented as of this encounter Visit Diagnoses Not on filedocumented in this encounter Additional Health Concerns Assessment Noted Time PHQ-9 Depression Total Score: 9 05/07/19 24 9:47 AM EST documented as of this encounter Care Teams Biology Professor Relationship Specialty Start Date End Date Ruslan Proctor CNP [address] [place] [id number] PCP - General Family Medicine 01/11/25 documented as of this encounter
--- OUTSIDE RECORDS SUMMARY | 2025-03-15 15:26 | XMS_ITS | Encounter Summary ---
Author Organization [employer] Address [address] [facility] 7[address] [place] [address] Care Team Providers Care Grease Maker Name Role Phone Yoli Nolen MD Primary Care Provider [phone] Ruslan Proctor CNP Primary Care Provider [phone] Reason for Visit * Reason Comments Med Refill Encounter Details Date Type Department Care Team ([facility] st Contact Info) Description 07/14/2022 Refill [facility] MED & PEDS [address] [place] [address] Adam Queen MD [address] [place] [address] Social History Tobacco Use Types Packs/Day Years [...] EDT Travel History Travel Start Travel End [place] 03/05/2025 2025 COVID-19 Exposure Response Date Recorded In the last 10 days, have yo u been in contact with someone who was confirmed or suspected to have Coronavirus/COVID-19? No / Unsure 06/17/2022 9:08 AM EDT documented as of this encounter Plan of Treatment Not on file documented as of this encounter Visit Diagnoses Not on filedocumented in this encounter Care Teams Grease Maker Relationship Specialty Start Date End Date Yoli Nolen MD [address] [place] [phone] PCP - General Family Medicine 03/24/13 01/10/25 Ruslan Proctor CNP [address] [place] [id number] PCP - General Family Medicine 01/11/25 documented as of this encounter
--- OUTSIDE RECORDS SUMMARY | 2025-03-15 15:26 | XMS_ITS | Encounter Summary ---
Author Organization [employer] Address [address] [facility] [facility] [address] [place] [address] Care Team Providers Care Gasoline Pump Mechanic Name Role Phone Yoli Nolen MD Primary Care Provider [phone] Ruslan Proctor CNP Primary Care Provider [phone] Reason for Visit * Reason Onset Date Comments Appointment Request 03/18/2023 Encounter Details Date Type Department Care Team ([facility] Contact Info) Description 03/18/2023 Telephone [facility] MED & PEDS [address] [place] [address] Yoli Nolen MD [address] [place] [address] Appointment Request Social History Tobacco Use Types [...] EDT Travel History Travel Start Travel End [place] 03/05/2025 2025 documented as of this encounter Miscellaneous Notes * Telephone Encounter - Feliciano Leonardo - 03/18/2023 11:47 AM EST Tc from pt requesting to r/s appt for Physical on 03/19/2022 @ 10:15 am. Please contact pt @ [phone] documented in this encounter Plan of Treatment Not on file documented as of this encounter Visit Diagnoses Not on filedocumented in this encounter Care Teams Gasoline Pump Mechanic Relationship Specialty Start Date End Date Yoli Nolen MD [address] [place] [id number] PCP - General Family Medicine 03/24/13 01/10/25 Ruslan Proctor CNP [address] [place] [id number] PCP - General Family Medicine 01/11/25 documented as of this encounter
[2025-03-15 15:54] LABS: Resp Syncy Virus RNA Qual PCR NEGATIVE (Negative); SARS COV2 PCR INHOUSE NEGATIVE (Negative)
== END 2025-03-15 11:24 ==
LOC: HO.CHCLDS 11:23
PROVIDERS: Visit Provider Internal Medicine
DX: J45.41 Moderate persistent asthma with (acute) exacerbation (principal); R05.1 Acute cough
CPT/HCPCS: 36415; 85025; 87637